=== PATIENT | female | born 1945 | race Caucasian/White ===

== ENCOUNTER 2019-12-25 15:04 | Outpatient (CLI) | payer MEDICARE, SELFPAY ==
--- NOTE | ~2019-12-25 | MR_ITS ---
EXAMINATION: MR lumbar spine wo con DATE: 12/25/2019 15:41 INDICATION: Low back pain. Right leg pain and numbness and weakness. Other symptoms and signs involvi ng the musculoskeletal system. TECHNIQUE: Magnetic resonance imaging (MRI) of the lumbar spine was performed without intravenous con trast. Sequences included sagittal T2-weighted FSE, sagittal STIR FSE, sagittal T1-weighted FSE, and axial T2-weighted FSE. COMPARISON: Lumbar spine MRI 09/20/2014, CT abdomen and pelvis 12/11/2014 FINDINGS: There is a transitional segment at the lumbosacral junction that is designated L5. There is 3 mm anterolisthesis of L3 on L4. There is 5 degrees dextrocurvature of lumbar spine. Vertebral body heights are normal. There is mildly decreased disc height at T12-L1, moderately decreased disc heigh t at L1-L2 and L2-L3, mildly decreased disc height at L3-L4, and severely decreased disc height at L4 -L5. The distal spinal cord signal intensity is normal. The conus medullaris is at L1. Partially visu alized is a chronic 6.0 cm mass in left adrenal gland that contained fat on the prior CT, consistent with a myelolipoma. The following disc levels are specifically discussed: L1-L2: The disc is bulging and has an annular fissure. There is mild bilateral facet joint osteoarthr itis. There is mild bilateral neural foraminal stenosis. There is mild central canal stenosis. L2-L3: The disc is bulging and has an annular fissure. There is moderate bilateral facet joint osteoa rthritis. There is mild bilateral neural foraminal stenosis. There is mild central canal stenosis. L3-L4: The disc is bulging. There is severe bilateral facet joint osteoarthritis. There is moderate r ight and mild left neural foraminal stenosis. There is mild central canal stenosis. L4-L5: The disc is bulging and has an annular fissure. There is mild bilateral facet joint osteoarthr itis. There is mild bilateral neural foraminal stenosis. There is mild central canal stenosis. L5-S1: The disc does not extend beyond the endplate margin. There is no facet joint osteoarthritis. T here is no neural foraminal stenosis. There is no central canal stenosis. IMPRESSION: 1. Severe lumbar spondylosis, slightly worsened from 09/20/2014. Reviewed, dictated and finalized at location E.
== END 2019-12-25 15:05 | disposition home or self-care (01) ==
LOC: ANHIMG 15:06
PROVIDERS: PCP Family Medicine; Visit Provider Family Medicine
DX: R29.898 Other symptoms and signs involving the musculoskeletal system (principal); M47.816 Spondylosis without myelopathy or radiculopathy, lumbar region
CPT/HCPCS: 72148

== ENCOUNTER 2020-01-25 09:37 | Inpatient (IN) | payer MEDICARE, SELFPAY ==
[2020-01-25] VITALS (33 sets, daily range): BP systolic 104–258; BP diastolic 34–93; PULSE 54–65; RESP 16–22; TEMP 36.3; O2SAT 64–100; BMI 27.7
--- NOTE | ~2020-01-25 | CT_ITS ---
EXAMINATION: CTA abdomen pelvis DATE: 01/27/2020 10:47 INDICATION: Hypertension. TECHNIQUE: Computed tomographic angiography (CTA) of the abdomen and pelvis was performed with 100 mL Omnipaque-350 intravenous contrast. Automated exposure control and iterative reconstruction techniqu e were employed. The dose-length product was 1057.24 mGy-cm. Maximum intensity projection 3D-reconstr uctions of the aorta and other arteries were constructed by the technologist on a separate workstatio n. COMPARISON: CT abdomen and pelvis 12/11/2014, 01/25/2020 FINDINGS: The visualized portions of the lung bases demonstrate small pleural effusions with mild ate lectasis. There is diffuse smooth septal thickening, consistent with mild pulmonary edema. There is m ild right hilar lymphadenopathy, likely reactive. There is left atrial enlargement of the heart. Ther e are coronary artery calcifications. No pericardial effusion. There is a small sliding hiatal hernia . Calcifications in the liver and spleen are consistent with old granulomatous disease. The gallbladd er is normal in size and contains gallstones. Gallbladder wall thickening is seen, likely interstitia l edema. The pancreas and right adrenal gland are normal. There is a 6.7 cm mass in left adrenal glan d containing fat and calcification, consistent with a myelolipoma. There is cortical thinning of the kidneys. There are cysts in the kidneys measuring up to 7 mm on the left. There are vascular calcific ations at the kourtney of the kidneys. There is calcified atherosclerosis of the aorta and many of the ot her arteries. There is a single right renal artery. There are 2 left renal arteries. There is less th an 50% stenosis of the renal arteries. There is moderate stenosis of celiac axis and mild stenosis of superior mesenteric artery. There is mild stenosis of the common iliac arteries and external iliac a rteries. The rectum is distended by stool. There is diverticulosis of the colon without evidence of d iverticulitis. The appendix is normal. There is mild periportal lymphadenopathy. There is a total lef t hip arthroplasty. IMPRESSION: 1. No significant renal artery stenosis. 2. Mild pulmonary edema and small pleural effusions. 3. Mild periportal and right hilar lymphadenopathy, likely reactive. Reviewed, dictated and finalized at location A.
--- NOTE | ~2020-01-25 | CT_ITS ---
EXAMINATION: CT abdomen pelvis wo con DATE: 01/25/2020 12:56 INDICATION: Left adrenal mass. TECHNIQUE: Computed tomography (CT) of the abdomen and pelvis was performed without intravenous contr ast. Automated exposure control and iterative reconstruction technique were employed. The dose-length product was 614.77 mGy-cm. COMPARISON: CT abdomen and pelvis 12/11/2014 FINDINGS: The visualized portions of the lung bases demonstrate mild atelectasis. No pleural effusion . The heart size is normal. There are coronary artery calcifications. No pericardial effusion. There is a small sliding hiatal hernia. Calcifications in the liver and spleen are consistent with old gran ulomatous disease. There are gallstones in the gallbladder, which is normal in size. There is chronic wall thickening of the gallbladder fundus, consistent with adenomyomatosis. The pancreas and right a drenal gland are normal. There is a 6.9 x 5.3 cm mass in left adrenal gland containing fat and calcif ication, consistent with a myelolipoma. The mass measured 6.4 x 4.6 cm on the prior CT. There are vas cular calcifications at the kourtney of the kidneys. There are two 2 mm stones in right kidney. There is a 1.3 cm cyst in left kidney. There is diverticulosis of the colon without evidence of diverticulitis . The appendix is normal. There are no dilated loops of bowel. There are no pathologically enlarged l ymph nodes. There is no free intraperitoneal fluid. There is a left hip arthroplasty. There is severe lumbar spondylosis. IMPRESSION: 1. 6.9 cm myelolipoma in left adrenal gland. Reviewed, dictated and finalized at location A.
--- NOTE | ~2020-01-25 | XR_ITS ---
EXAMINATION: XR chest 1V portable DATE: 01/27/2020 08:34 INDICATION: Hypertension. Elevated troponin. TECHNIQUE: A single frontal view of the chest was obtained. COMPARISON: CT abdomen and pelvis 01/25/2020 FINDINGS: The patient is rotated to her right. There is mild atelectasis in right middle lower lung z ones. No pleural effusion or pneumothorax. The heart size is normal. IMPRESSION: 1. Mild atelectasis in right middle lobe lung zones. Reviewed, dictated and finalized at location A.
--- NOTE | ~2020-01-25 | MR_ITS ---
EXAMINATION: MR brain/brain stem wo/w con DATE: 01/28/2020 07:51 INDICATION: Right hemiparesis. TECHNIQUE: Magnetic resonance imaging (MRI) of the brain and brainstem was performed without with 15 mL MultiHance intravenous contrast. Sequences included sagittal and axial T1-weighted FSE, axial diff usion-weighted FS EPI, axial T2*-weighted GRE, axial T2-weighted FLAIR Propeller, and axial T2-weight ed Propeller. Postcontrast sequences included axial and coronal T1-weighted FSE. Apparent diffusion c oefficient (ADC) maps were created. COMPARISON: None. FINDINGS: There are scattered areas of nonspecific increased T2-weighted signal intensity in the cere bral white matter. There is no intracranial hemorrhage, acute infarction, or abnormal intracranial ma ss lesion. The ventricles are normal in size. There is mild mucosal thickening in the paranasal sinus es. The orbits are normal. The mastoid air cells are normal. IMPRESSION: 1. Mild nonspecific cerebral white matter disease, which likely represents chronic small vessel ische richard disease. Reviewed, dictated and finalized at location A. IMPRESSION: 1. Mild nonspecific cerebral white matter disease, which likely represents search engineer jennifer small vessel ischemic disease.
--- NOTE | ~2020-01-25 | XR_ITS ---
XR knee RT 3V 01/25/2020 19:42 Indication: Right knee pain and numbness Procedure: 3 views right knee Comparison: No prior studies for comparison. Findings: Mild-moderate osteoarthritis of the right knee. There are vascular calcifications. No signi ficant joint effusion. No fracture or traumatic malalignment. Impression: 1: Mild-moderate osteoarthritis of the right knee. Reviewed, dictated and finalized at location A. Impression: 1: Mild-moderate osteoarthritis of the right knee.
--- NOTE | 2020-01-25 09:48 | ED.GENADULT ---
HPI - General Adult General Chief complaint: Recheck/Abnormal Lab/Rx Stated complaint: HIGH BP Time Seen by Provider: 01/25/20 09:47 Source: patient Mode of arrival: ambulatory Limitations: no limitations History of Present Illness HPI narrative: Patient is a 74-year-old female with a history of hypertension on multiple medications who presents for evaluation of high blood pressure. Patient reportedly was having a home health screen for physical therapy, her blood pressure was taken and was over 250 systolic. Patient was otherwise asymptomatic, and has been compliant with her medications. She denies any headache, vision changes, nausea, vomiting, chest pain or shortness of breath. She follows a Dr. Edmonds. She states she was sent here due to elevated blood pressure readings. Related Data Home Medications Medication Instructions Recorded Confirmed aliskiren 300 mg tablet 300 mg PO DAILY 12/14/19 12/18/19 aspirin 81 mg tablet,delayed 81 mg PO DAILY 12/14/19 12/18/19 release atenolol 100 mg tablet 100 mg PO DAILY 12/14/19 12/18/19 atorvastatin 80 mg tablet 80 mg PO DAILY 12/14/19 12/18/19 clopidogrel 75 mg tablet 75 mg PO DAILY 12/14/19 12/18/19 ezetimibe 10 mg tablet 10 mg PO QPM tablet 12/14/19 12/18/19 hydralazine 25 mg tablet 25 mg PO BID tablet 12/14/19 12/18/19 lisinopril 40 mg tablet 40 mg PO DAILY 12/14/19 12/18/19 melatonin 10 mg tablet 20 mg PO .QHS tablet 12/14/19 12/18/19 naproxen sodium 220 mg tablet 220 mg PO BID PRN 12/14/19 12/18/19 verapamil 240 mg 24 hr 240 mg PO DAILY 12/14/19 12/18/19 capsule,extended release hydrochlorothiazide 12.5 mg tablet 12.5 mg PO DAILY 12/18/19 12/18/19 Allergies Allergy/AdvReac Type Severity Reaction Status Date / Time No Known Allergies Verified 01/25/20 09:41 Review of Systems Review of Systems: Narrative: CONSTITUTIONAL: Denies fever CARDIOVASCULAR: Denies chest pain RESPIRATORY: Denies cough or dyspnea. GASTROINTESTINAL: Denies abdominal pain SKIN: Denies rash MUSCULOSKELETAL: Denies back pain NEUROLOGIC: Denies headache [facility] Past Medical History Medical History Anxiety CAD (coronary artery disease) Dyslipidemia Essential (primary) hypertension Osteoarthritis Surgical History Surgical History History of coronary artery stent placement 11/2014 History of left hip replacement around 2016 Social History Social History Smoking status: Never smoker Second hand tobacco smoke exposure: No Alcohol intake: never Substance use: never Substance use type: does not use Gender identity (if verbalized by the patient): Female Exam Narrative: Exam Narrative: GENERAL: Awake, alert, conversant HEAD: Normocephalic, atraumatic. EYES: PERRLA and EOMI. ENT: Nares clear, no rhinorrhea or epistaxis. Mucous membranes moist. NECK: Supple. CHEST: No respiratory distress, breathing even and non labored HEART: Regular rate, sinus rhythm ABDOMEN:Non distended, non tender EXTREMITIES: Normal range of motion. No edema. SKIN: Warm, dry, no rash. NEURO:No focal deficits. Alert and oriented x3 Course Vital Signs Vital signs: Vital Signs Temperature 36.3 C L 01/25/20 09:39 Pulse Rate 56 L 01/25/20 09:39 Respiratory Rate 19 01/25/20 09:39 Blood Pressure 236/93 H 01/25/20 09:39 Pulse Oximetry 100 01/25/20 09:39 Temperature 36.3 C L 01/25/20 09:39 Pulse Rate 56 L 01/25/20 11:45 Respiratory Rate 20 01/25/20 11:45 Blood Pressure 159/41 H 01/25/20 11:45 Pulse Oximetry 98 01/25/20 11:45 Medical Decision Making MDM Narrative Medical decision making narrative: Patient presented for evaluation of elevated blood pressure despite being compliant with her many antihypertensives. At the time of initial assessment, patient is asymptomatic otherwise, but blood pressures
[2020-01-25 10:10] LABS: Basophils Absolute Auto 0.1 K/mm3 (0.0-0.1); Basophils Percent Auto 0.6 % (0.2-1.2); Eosinophils Absolute Auto 0.2 K/mm3 (0-0.3); Eosinophils Percent Auto 1.9 % (0-4.4); Hematocrit 42.7 % (37.0-47.0); Hemoglobin 14.2 g/dL (12.0-15.0); Immature Granulocyte Absolute 0.04 K/mm3 (0.00-0.031); Immature Granulocyte Percent A 0.5 % (0-0.5); Lymphocytes Absolute Auto 1.09 K/mm3 (0.9-3.2); Lymphocytes Percent Auto 13.9 % (18.3-44.2); Mean Corpuscular HGB Conc 33.3 g/dl (32-36); Mean Corpuscular Hemoglobin 30.1 pg (26-34); Mean Corpuscular Volume 90.5 fl (80-100); Mean Platelet Volume 10.8 fl (7.4-10.4); Monocytes Absolute Auto 0.6 K/mm3 (0.1-0.6); Monocytes Percent Auto 7.9 % (2.6-8.5); Neutrophils Absolute Auto 5.9 K/mm3 (1.3-6.7); Neutrophils Percent Auto 75.2 % (45.5-73.1); Platelet Count Result 238 k/mm3 (150-375); Red Blood Count 4.72 M/mm3 (4.2-5.4); Red Cell Distribution Width 13.3 % (11.5-14.5); White Blood Count 7.8 K/mm3 (4.5-10.0)
[2020-01-25 10:20] LABS: INR 1.1; Partial Thromboplastin Time 24.7 SECONDS (22.3-36.8); Prothrombin Time 13.9 Seconds (11.1-14.7)
[2020-01-25 10:21] LABS: Blood Urea Nitrogen 19 mg/dL (7-17); Calcium 8.8 mg/dL (8.4-10.2); Carbon Dioxide 29 mmol/L (22-30); Chloride 98 mmol/L (98-107); Estimated CRCL calculation 42 ml/min; Estimated Glomerular Filt Rate 54; Glucose 180 mg/dL (65-105); Potassium 3.7 mmol/L (3.4-5.0); Sodium 135 mmol/L (137-145)
[2020-01-25 10:35] LABS: Troponin I 0.036 ng/mL (0.000-0.034)
--- NOTE | 2020-01-25 10:36 | ECG_ITS ---
Measurements Intervals [place] Rate: 51 P: -52 DC: 152 QRS: 190 QRSD: 153 T: 3 QT: 503 QTc: 467 Interpretive Statements SINUS OR ECTOPIC ATRIAL BRADYCARDIA RIGHT AXIS DEVIATION RIGHT BUNDLE BRANCH BLOCK HIGH LATERAL INFARCT, AGE INDETERMINATE ABNORMAL ECG Electronically Signed On 01-25-2020 11:16:48 CDT by Aryan Gunn D.O.
[2020-01-25] MEDS: hydrALAZINE HCL 20 MG/ML VIAL IV PUSH ×3 (11:10→14:45)
--- NOTE | 2020-01-25 11:55 | PC.NURSE ---
nicardipine drip to be held per dr garcia order at this time.
[2020-01-25 12:47] LABS: Add Urine Microscopic? YES; Appearance Urine Clear (Clear); Bilirubin Urine Negative (Negative); Blood Urine Negative (Negative); Color Urine Yellow (Yellow); Glucose Urine UA Negative (Negative); Ketones Urine Negative (Negative); Leukocyte Esterase Ur Negative LEU/UL (Negative); Nitrate Urine Negative (Negative); Protein Urine 2+ mg/dL (Negative); RBC Urine 0-2 /hpf (0-2); Specific Grav Ur 1.014 (1.001-1.035); Squamous Epithelial Cell Urine Rare /hpf (Few); Urobilinogen Urine Negative mg/dL (<2.0); WBC Urine 0-3 /hpf
--- NOTE | 2020-01-25 13:10 | PM.IMHP ---
H&P: HPI History of Present Illness Chief complaint: Elevated blood pressure. <Oly Dozier PA-C - Last Filed: 01/25/20 19:29> Narrative: Terese Bentley is a 74-year-old female with history of difficult to control hypertension, dyslipidemia, coronary artery disease, anxiety, and left adrenal mass who presented to the emergency department earlier this morning via private vehicle from home for evaluation of an elevated blood pressure. A little over a month ago her right knee gave out and she has become progressively more debilitated since that time. She has gone from ambulating unassisted to using a cane to a wheelchair. Work-up per her primary care provider included lumbar MRI (severe lumbar spine spondylosis with slight interval worsening when compared to imaging in 2015), Neurology referral, and PT referral. She was seen by neurology and was prescribed gabapentin which offered her no help, and more recently she was given carbamazepine which has also provided her with no relief. CT of the cervical and thoracic spine were also performed, with some degenerative changes noted and moderate stenosis in addition to a 6 cm complex mass of the left suprarenal region, noted to be a 6.9 cm myelolipoma on abdominal CT today. This adrenal mass was seen on imaging in 2015 and a workup for pheochromocytoma was reprotedly negative. A home health nurse came to see her today to initiate paperwork for physical therapy, and at that time the patient was noted to have a blood pressure reading of 270/100 for which she was directed to the emergency department. She received a total of 40 mg of hydralazine in the emergency department with improvement in her blood pressures, now in the 170s over 90s at the time of my evaluation. It is also noted that her blood pressure was high when she saw Dr. Rosas a couple of weeks ago, and she was instructed to keep a blood pressure log. Her pressures at home have ranged in the 120s to 130 systolic over the 60s to 70s. Previously she reports accelerated hypertension with stressful situations, and she reports being quite stressed recently due to pain in her right knee with the inability to ambulate. The pain is described as sharp, shooting, and aching in nature, worse with movement. She is also frustrated that she has yet to start physical therapy. With further questioning, it sounds as though she has been experiencing weakness and paresthesias in the right leg, mainly in the right thigh, for the last month or more since her knee gave out. Additionally, she has intermittent paresthesias of the fingers in the right hand, and this also occurred within the past 4 to 6 weeks. She has had no symptoms regarding her high blood pressure and she specifically denies headache, dizziness/vertigo, visual changes, chest pain, and shortness of breath. She also denies weakness in any other extremity except for the right leg. She has no history of stroke or atrial fibrillation. <Oly Dozier PA-C - Last Filed: 01/25/20 19:29> Review of Systems Review of Systems: Narrative: 12 systems were reviewed with pertinent positives and negatives as per HPI. No fever, chills, or sweats. No recent cold or flulike symptoms. She denies chest pain and shortness of breath. No nausea or vomiting. She has had problems with constipation since she was a young woman. She suffers from longstanding anxiety and this is unchanged. She denies sweats, tremors, headache, and shortness of breath. Except as documented, all other systems were reviewed and are negative. <Oly Dozier PA-C - Last Filed: 01/25/20 19:29> [facility] Past Medical History Medical History: Medical History Anxiety Coronary artery disease Abnormal MPI in 11/2014.Subsequent cardiac catheterization showed high-grade mid LAD stenosis in which a bare-metal stent was placed per Dr. Perez. She is followed in the clinic by Dr. Antonella Edmonds. Tito
--- NOTE | 2020-01-25 13:40 | PC.NURSE ---
nicardipine drip still on hold at this time per dr garcia request
--- NOTE | 2020-01-25 13:48 | PC.NURSE ---
SBAR and report received from MEGHAN Britton in ED.
--- NOTE | 2020-01-25 14:17 | PC.NURSE ---
This patient, Terese Bentley, was admitted to Intensive Care Unit-6. Patient/family oriented to hospital policies and general routines including ID bracelet, bed and alarms, visiting hours, pain management, procedures, bathroom and other care routines, personal items, smoking policy, room service/diet, and visiting hours. Valuables list has been completed. Information on how to activate the Rapid Response Team has been discussed. Patient/Family are encouraged to report perceived risks to care and to ask questions if they do not understand what they are told or what they should do.
[2020-01-25] MEDS: niCARdipine 20 MG/200 ML 20 MG/200 ML BAG 50 MG IV CONT (14:45)
--- NOTE | 2020-01-25 14:57 | WPDCNINT ---
Assessment and Plan Assessment and plan (1) Hypertensive crisis: Code(s): I16.9 - Hypertensive crisis, unspecified Status: Acute Assessment and Plan: Hypertensive crisis, patient was found to have a blood pressure of 270/100 for which she was sent to the ER. Systolic blood pressures in the ER was in the 250s, received hydralazine. Upon arrival to the ICU blood pressures in the 220s -nicardipine infusion is being started -Cardiology to evaluate the patient -patient has a 6.9 cm myelolipoma in the left adrenal gland. Questionable pheochromocytoma, will obtain 24 hour metanephrines and catecholamines -nephrology has been consulted (2) Weakness of right lower extremity: Code(s): R29.898 - Other symptoms and signs involving the musculoskeletal system Status: Acute Assessment and Plan: Patient follows with Dr. Bradford, will have him follow-up with the patient (3) Anxiety: Code(s): F41.9 - Anxiety disorder, unspecified Status: Acute Assessment and Plan: Patient has a history of anxiety will restart her home dose lorazepam (4) CAD (coronary artery disease): Qualifiers: Coronary Disease-Associated Artery/Lesion type: [place] artery [place] vs. transplanted heart: [place] heart Associated angina: without angina Qualified Code(s): I25.10 - Atherosclerotic heart disease of [place] coronary artery without angina pectoris Code(s): I25.10 - Atherosclerotic heart disease of [place] coronary artery without angina pectoris Status: Acute Assessment and Plan: Coronary artery disease, continue, atenolol, AMY-inhibitor -Dr. Edmonds has been consulted, will wait for Cardiology to evaluate (5) Essential (primary) hypertension: Code(s): I10 - Essential (primary) hypertension Status: Acute Assessment and Plan: Patient with history of essential hypertension, restarted home atenolol, hydralazine, hydrochlorothiazide, lisinopril, verapamil, Aliskiren (6) Dyslipidemia: Code(s): E78.5 - Hyperlipidemia, unspecified Status: Acute Assessment and Plan: Continue home ezetimibe and atorvastatin Additional Plan Discussed with patient and her at bedside and updated them with patient's condition and plan of care. I answered all questions Code status: Full code Critical care time spent: 43 minutes Due to a high probability of clinically significant, life threatening deterioration, the patient required my highest level of preparedness to intervene emergently and I personally spent this critical care time directly and personally managing the patient. This critical care time included obtaining a history; examining the patient; pulse oximetry; ordering and review of studies; arranging urgent treatment with development of a management plan; evaluation of patient's response to treatment; frequent reassessment; and discussions with other providers. It was exclusive of separately billable procedures and treating other patients and teaching time. Please see Assessment and Plan section and the rest of the note for further information on patient assessment and treatment [employer] Consult Note Consult date: 01/25/20 Time Seen: 14:15 Reason for consult: Hypertensive urgency HPI: Terese Bentley is a 74 year old female with past medical history of coronary artery disease, essential hypertension, dyslipidemia, anxiety and osteoarthritis, known left adrenal mass presented to the ED from home for evaluation of elevated blood pressures. Patient has been having weakness and right lower extremity for which she saw a neurologist, a lumbar spine MRI done on 12/25/2019 showed via lumbar spondylosis, CT scan of the cervical and thoracic spine was also performed at the same time with some degenerative changes noted and moderate stenosis in addition 6 cm complex mass on the left suprarenal region. Noted to be a 6.[address] scan done on admission today, 01/24
--- NOTE | 2020-01-25 15:29 | PM.CNCAR ---
Assessment and Plan Assessment and plan (1) Hypertensive crisis: Code(s): I16.9 - Hypertensive crisis, unspecified Status: Acute Assessment and Plan: BP much better controlled on nicardipine drip. Keep systolic blood pressure around 150 mm Hg overnight, avoid aggressive lowering/hypotension particularly within the 1st 24 hours. Monitor renal function. Agree with workup for pheochromocytoma given adrenal mass and while blood pressure swelling. 24 hour urine collection orders noted. 2D echocardiogram. Trend troponin. It is not surprising she has mild troponin elevation in setting of hypertensive crisis. She has no anginal symptoms. Resume home antihypertensive regimen. Monitor electrolytes and renal function closely. Further recommendations follow based on patient's response to therapy. (2) Elevated troponin: Code(s): R79.89 - Other specified abnormal findings of blood chemistry Status: Acute Assessment and Plan: Most likely type 2 infarct/non [place] troponin elevation not acute coronary syndrome. Trend troponin. No anginal symptoms. Continue medical therapy for CAD. (3) Adrenal mass, left: Code(s): E27.8 - Other specified disorders of adrenal gland Status: Acute Assessment and Plan: Agree with workup underway. CT results noted. Nephrology consulted. (4) CAD (coronary artery disease): Qualifiers: Coronary Disease-Associated Artery/Lesion type: [place] artery [place] vs. transplanted heart: [place] heart Associated angina: without angina Qualified Code(s): I25.10 - Atherosclerotic heart disease of [place] coronary artery without angina pectoris Code(s): I25.10 - Atherosclerotic heart disease of [place] coronary artery without angina pectoris Status: Acute Assessment and Plan: As above. Continue aspirin, statin, clopidogrel. (5) Dyslipidemia: Code(s): E78.5 - Hyperlipidemia, unspecified Status: Acute Assessment and Plan: Atorvastatin 80 mg at bedtime. Check lipid panel. (6) Tobacco abuse: Code(s): Z72.0 - Tobacco use Status: Acute Assessment and Plan: Smoking cessation counseling. History of Present Illness History of Present Illness Consult date/time: Date of service: 01/25/20 15:29 This is a cardiology consultation at the request of Oly STACK of the [facility] service for our opinion regarding hypertensive crisis. Requesting physician: Oly Dozier PA-C Consult reason: hypertension (Hypertensive crisis) Reason For Visit: Elevated blood pressure. Narrative: Patient is a 74-year-old female with past medical history significant for CAD status post bare metal stent mid LAD 11/2014, labile and resistant hypertension on multiple drugs, dyslipidemia, anxiety, osteoarthritis and known left adrenal mass who presents to the emergency department as instructed for markedly elevated blood pressures. She was evaluated by home health nurse earlier today where upon was discovered her blood pressure was 270/100 mm Hg and as such directed to the emergency department. Upon arrival she received intravenous hydralazine with some improved blood pressures but then rebound back about 200 mm Hg admitted to the ICU and started on a nicardipine drip. She denies chest pain, shortness of breath, abdominal pain, nausea, vomiting, diarrhea, headache or visual changes. No near-syncope or syncope or palpitations. She did complain of right lower extremity weakness and paresthesias. Was not in acute renal failure presentation at 1.0, electrolytes were unremarkable initial troponin 0.036. CT of the abdomen pelvis in the emergency department real 6.9 cm mild lipoma in the left adrenal gland slightly enlarged compared to prior CT 2014. Twelve EKG reveals sinus bradycardia with right bundle-branch block. Patient has been seen by Dr. Edmonds in the past. The patient reports compliance with her medications. She sta
[2020-01-25] MEDS: niCARdipine 20 MG/200 ML 20 MG/200 ML BAG 100 MG IV CONT ×2 (16:53→18:45)
[2020-01-25 17:08] LABS: Troponin I 0.044 ng/mL (0.000-0.034)
[2020-01-25] MEDS: hydrALAZINE HCL 25 MG TABLET PO (22:00)
[2020-01-25] MEDS: EZETIMIBE 10 MG TABLET PO (22:00)
[2020-01-26] VITALS (29 sets, daily range): BP systolic 132–194; BP diastolic 30–88; PULSE 47–61; RESP 12–22; TEMP 36.4–37.2; O2SAT 89–97; BMI 27.7
[2020-01-26 04:42] LABS: Basophils Percent Auto 0.5 % (0.2-1.2); Eosinophils Absolute Auto 0.1 K/mm3 (0-0.3); Eosinophils Percent Auto 1.3 % (0-4.4); Hematocrit 39.1 % (37.0-47.0); Hemoglobin 13.3 g/dL (12.0-15.0); Immature Granulocyte Absolute 0.03 K/mm3 (0.00-0.031); Immature Granulocyte Percent A 0.4 % (0-0.5); Lymphocytes Absolute Auto 1.16 K/mm3 (0.9-3.2); Lymphocytes Percent Auto 14.2 % (18.3-44.2); Mean Corpuscular Hemoglobin 29.8 pg (26-34); Mean Corpuscular Volume 87.7 fl (80-100); Mean Platelet Volume 10.7 fl (7.4-10.4); Monocytes Absolute Auto 0.7 K/mm3 (0.1-0.6); Monocytes Percent Auto 8.4 % (2.6-8.5); Neutrophils Absolute Auto 6.1 K/mm3 (1.3-6.7); Neutrophils Percent Auto 75.2 % (45.5-73.1); Platelet Count Result 220 k/mm3 (150-375); Red Blood Count 4.46 M/mm3 (4.2-5.4); Red Cell Distribution Width 13.2 % (11.5-14.5); White Blood Count 8.2 K/mm3 (4.5-10.0)
[2020-01-26 04:51] LABS: Hemoglobin A1C 8.3 % (<5.7)
[2020-01-26 04:56] LABS: Alanine Aminotransferase 29 U/L (4-35); Albumin Level 3.3 g/dL (3.5-5.1); Alkaline Phosphatase 85 U/L (38-126); Aspartate Amino Transferase 37 U/L (14-36); Bilirubin,Total 0.6 mg/dL (0.2-1.3); Blood Urea Nitrogen 17 mg/dL (7-17); Calcium 8.5 mg/dL (8.4-10.2); Carbon Dioxide 24 mmol/L (22-30); Chloride 96 mmol/L (98-107); Estimated CRCL calculation 65 ml/min; Estimated Glomerular Filt Rate > 60; Glucose 139 mg/dL (65-105); Magnesium 1.5 mg/dL (1.6-2.3); Phosphorus 3.5 mg/dL (2.5-4.5); Potassium 3.5 mmol/L (3.4-5.0); Sodium 127 mmol/L (137-145); Uric Acid 5.5 mg/dL (2.5-7.5)
[2020-01-26] MEDS: niCARdipine 20 MG/200 ML 20 MG/200 ML BAG 80 MG IV CONT (07:46)
[2020-01-26] MEDS: atenoloL 50 MG TABLET 100 MG PO (08:03)
[2020-01-26] MEDS: ASPIRIN 81 MG ENTERIC TABLET PO (08:04)
[2020-01-26] MEDS: CLOPIDOGREL BISULFATE 75 MG TABLET PO (08:04)
[2020-01-26] MEDS: hydroCHLOROthiazide 12.5 MG CAPSULE PO ×2 (08:04→18:20)
[2020-01-26] MEDS: VERAPAMIL HCL ER 240 MG TABLET.ER PO (08:04)
[2020-01-26] MEDS: ALISKIREN 150 MG TABLET 300 MG PO (08:04)
[2020-01-26] MEDS: MAGNESIUM SULF 2 GM/WATER 50ML 2 GM/50 ML BAG IVPB (08:23)
[2020-01-26] MEDS: hydrALAZINE HCL 25 MG TABLET PO ×2 (08:24→17:06)
[2020-01-26] MEDS: lisinopriL 20 MG TABLET 40 MG PO (08:24)
--- NOTE | 2020-01-26 08:30 | PM.IMPN ---
Progress Note: A&P Assessment and Plan (1) Hypertensive crisis: Code(s): I16.9 - Hypertensive crisis, unspecified Status: Acute Assessment and Plan: Blood pressures 236/93 on admission. Blood pressure initially improved with hydralazine but then rebounded requiring a nicardipine drip. Able to wean nicardipine off but subsequently needed to be resumed this morning. Home medications have been resumed. Appreciate payroll administrative assistant and Cardiology input. Continue to wean nicardipine as blood pressure allows. (2) Weakness of right lower extremity: Code(s): R29.898 - Other symptoms and signs involving the musculoskeletal system Status: Acute Assessment and Plan: Patient has right leg weakness with previous evaluation as outpatient concerning for lumbar spinal disease. Lumbar spine MRI December 24 showing severe lumbar spondylosis, mild central canal stenosis at various sites and moderate right neural foraminal stenosis at L3-4. This appears only mildly worse from 2014. Agree with MRI of the brain to exclude CVA. Right knee x-ray does show osteoarthritis as well which could be contributing to her weakness. PT/OT consulted. (3) Elevated troponin: Code(s): R79.89 - Other specified abnormal findings of blood chemistry Status: Acute Assessment and Plan: Troponin only mildly elevated. Most likely related the severe hypertension. No symptoms of cardiac ischemia. 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 This has been known to the patient since 2014, with previous workup negative for pheochromocytoma. Doubtful this is playing a part in her current medical condition. (5) Hyperglycemia: Code(s): R73.9 - Hyperglycemia, unspecified Status: Acute Assessment and Plan: Patient noted to be hyperglycemic on admission. A1c 8.3. Dietitian consult. Place on sliding scale protocol. Plan for metformin at discharge. (6) Dyslipidemia: Code(s): E78.5 - Hyperlipidemia, unspecified Status: Acute Assessment and Plan: LFTs within normal limits. Continue atorvastatin and ezetimibe. (7) Coronary artery disease: Code(s): I25.10 - Atherosclerotic heart disease of [place] coronary artery without angina pectoris Status: Acute Assessment and Plan: Patient with history of CAD status post bare metal stent to the mid LAD in 2014. Continue aspirin, clopidogrel, beta-kayode, and statin. Subjective Date/time seen: 01/26/20 08:30 Interval history: 74yo female with hx of HTN who was sent to the emergency room because elevated blood pressure. She denies any other symptoms such as chest pain, shortness of breath, nausea, vomiting, headache, visual changes. She has been compliant with her medications. She denies any dietary indiscretion. She was started on nicardipine drip which was able to be stopped overnight. Unfortunately however, patient's blood pressure climbed and nicardipine drip was resumed around 0430 this morning. Patient feels well today without complaints. Eating normally. Slept poorly because of the SCDs. She has chronic right leg weakness with hip flexor. This is been going on for few weeks. She has seen her primary care doctor and Neurology for this and MRI was performed of the lumbar spine. It was felt her right leg weakness was related to lumbar spine arthritis. Exam Narrative: Exam Narrative: Afebrile 162/36 57 93% ra Gen: N
--- NOTE | 2020-01-26 09:01 | ECHO_ITS ---
Patient Info Name: Terese Bentley Age: 74 years : 1945 Gender: Female Ht: 67 in Wt: 177 lbs BSA: 1.97 m2 HR: 55 bpm BP: 133 / 45 mmHg Heart Rhythm: Bradycardia Technical Quality: Good Exam Date: 01/26/2020 9:54 AM Exam Location: [facility] Pulmonary Patient Status: Inpatient Admit Date: 01/25/2020 Staff Ordering Physician: Lelia Kirkland APRN [place] Department Worker: Haroon Nugent RDCS Attending Provider: Tian Holland MD Referring Physician: Isael CAR; Exam Type: CA echo doppler color flow Study Info Indications I10 - Essential (primary) hypertension Complete two-dimensional, color flow and Doppler transthoracic echocardiogram is performed. Strain analysis performed. History/Risk Factors Hypertensive urgency; CAD, NSTEMI. Summary 1. There is moderate concentric increased left ventricular wall thickness. 2. Left ventricular systolic function is normal, estimated at 65-70%. 3. Left atrial chamber dimension is severely enlarged. 4. The mitral valve annulus is severely calcified. 5. There is mild aortic valve sclerosis. Left Ventricle Left ventricular chamber dimension is normal. Left ventricular systolic function is normal, estimated at 65-70%. There is moderate concentric increased left ventricular wall thickness. The left ventricular diastolic function is grade I diastolic dysfunction. Right Ventricle Right ventricular chamber dimension is normal. Left Atria Left atrial chamber dimension is severely enlarged. Right Atria Right atrial chamber dimension is normal. Aortic Valve The aortic valve is trileaflet. There is mild aortic valve sclerosis. Pulmonic Valve The pulmonic valve is not well visualized. Mitral Valve The mitral valve has normal leaflets. There is trace mitral valve regurgitation. The mitral valve annulus is severely calcified. Tricuspid Valve The tricuspid valve leaflets are normal. Pericardium/Pleural The pericardium appears normal. Inferior Vena Cava Normal inferior vena cava with >50% collapse upon inspiration consistent with Empty right atrial pressure, 5 mmHg. Aorta The aortic root size at the sinus of Valsalva is normal. Left Ventricular Outflow Tract Name Value Normal LVOT 2D LVOT Diameter 1.7 cm LVOT Doppler LVOT Peak Gradient 11 mmHg LVOT Mean Gradient 6 mmHg LVOT VTI 38 cm LVOT VTI/AV VTI Ratio 0.8 LVOT Stroke Volume 90 ml LVOT CO 4.9 l/min LVOT CI 2.5 l/min/m2 Mitral Valve Name Value Normal MV Doppler MV Peak Gradient 14 mmHg MV Mean Gradient 5 mmHg MV Decel [place] 265 cm/s2
[2020-01-26] MEDS: niCARdipine 20 MG/200 ML 20 MG/200 ML BAG 60 MG IV CONT ×2 (11:02→14:18)
[2020-01-26] MEDS: LORazepam 0.5 MG TABLET PO (11:03)
--- NOTE | 2020-01-26 11:22 | WPDINTPN ---
Progress Note: A&P Assessment and Plan (1) Hypertensive crisis: Code(s): I16.9 - Hypertensive crisis, unspecified Status: Acute Assessment and Plan: Hypertensive crisis, patient was found to have a blood pressure of 270/100 for which she was sent to the ER. Systolic blood pressures in the ER was in the 250s, received hydralazine. Upon arrival to the ICU blood pressures in the 220s -nicardipine infusion is being started -Cardiology to evaluate the patient -patient has a 6.9 cm myelolipoma in the left adrenal gland. Questionable pheochromocytoma, will obtain 24 hour metanephrines and catecholamines -nephrology has been consulted (2) Weakness of right lower extremity: Code(s): R29.898 - Other symptoms and signs involving the musculoskeletal system Status: Acute Assessment and Plan: Patient follows with Dr. Bradford, will have him follow-up with the patient -lumbar spine MRI on 12/25/2019 showed severe lumbar spondylosis, mild central canal stenosis at various sites and moderate right neural foraminal stenosis at L3 and L4. -patient to an MRI of the brain to exclude CVA -right knee x-ray shows osteoarthritis -PT/OT following the patient (3) Anxiety: Code(s): F41.9 - Anxiety disorder, unspecified Status: Acute Assessment and Plan: Patient has a history of anxiety will restart her home dose lorazepam (4) CAD (coronary artery disease): Qualifiers: Coronary Disease-Associated Artery/Lesion type: [place] artery [place] vs. transplanted heart: [place] heart Associated angina: without angina Qualified Code(s): I25.10 - Atherosclerotic heart disease of [place] coronary artery without angina pectoris Code(s): I25.10 - Atherosclerotic heart disease of [place] coronary artery without angina pectoris Status: Acute Assessment and Plan: Coronary artery disease, continue, atenolol, AMY-inhibitor -Dr. Edmonds has been consulted, will wait for Cardiology to evaluate (5) Essential (primary) hypertension: Code(s): I10 - Essential (primary) hypertension Status: Acute Assessment and Plan: Patient with history of essential hypertension, restarted home atenolol, hydralazine, hydrochlorothiazide, lisinopril, verapamil, Alisk[place] (6) Dyslipidemia: Code(s): E78.5 - Hyperlipidemia, unspecified Status: Acute Assessment and Plan: Continue home ezetimibe and atorvastatin Additional Plan Discussed with patient and her at bedside and updated them with patient's condition and plan of care. I answered all questions Code status: Full code Critical care time spent: 43 minutes Due to a high probability of clinically significant, life threatening deterioration, the patient required my highest level of preparedness to intervene emergently and I personally spent this critical care time directly and personally managing the patient. This critical care time included obtaining a history; examining the patient; pulse oximetry; ordering and review of studies; arranging urgent treatment with development of a management plan; evaluation of patient's response to treatment; frequent reassessment; and discussions with other providers. It was exclusive of separately billable procedures and treating other patients and teaching time. Please see Assessment and Plan section and the rest of the note for further information on patient assessment and treatment Subjective Date/time seen: 01/26/20 11:22 Interval history: Reason for consult: 01/26/2020: Patient seen and examined this morning. Sitting up in chair, denies any shortness of breath, chest pain, abdominal pain, nausea, vomiting, diarrhea. Denies any headaches, visual changes. Continues to complain of weakness in the right lower extremity with numbness. Patient was off nicardipine infusion last night and had to be restarted early this morning. Patient did not sleep well because of her SCDs. [place]
[2020-01-26 12:04] LABS: Glucose Point of Care 210 (65-105)
[2020-01-26] MEDS: INSULIN ASPART (*BKC) 100 UNITS/ML SUB-Q (12:19)
--- NOTE | 2020-01-26 13:48 | PCDIET ---
Dietitian consult for new diagnoses of diabetes. See nutritional teaching intervention.Thank you for the consult.
--- NOTE | 2020-01-26 14:12 | PCNSR ---
On 01/26/20, the student, Sherif Luevano, provided care and completed [facility] documentation on this patient. I have reviewed the student's documentation and agree with the findings.
--- NOTE | 2020-01-26 15:31 | PM.PNCARD ---
Progress Note: A&P Assessment and Plan (1) Hypertensive crisis: Code(s): I16.9 - Hypertensive crisis, unspecified Status: Acute Assessment and Plan: BP much better controlled on nicardipine drip. Was weaned till most off overnight but blood pressure crept up again. Goal for systolic blood pressure around 150 mm Hg overnight, avoid aggressive lowering/hypotension particularly within the first 24 hours. Monitor renal function. Continue workup for pheochromocytoma given adrenal mass and while blood pressure swelling. 24 hour urine collection orders noted. 2D echo 01/26/2020: Moderate concentric increased left ventricular wall thickness. Left ventricular systolic function is normal, estimated at 65-70%. Left atrial chamber dimension is severely enlarged. The mitral valve annulus is severely calcified. There is mild aortic valve sclerosis. Continue home antihypertensive regimen. Monitor electrolytes and renal function closely. She states she has never been evaluated for sleep apnea. Will do apnea link tonight. May have SCDs offer the night so that she can sleep. Needs to be off the nicardipine drip in order to have her MRI. Increase hydralazine to 25 mg q.8 hours. First dose now. (2) Elevated troponin: Code(s): R79.89 - Other specified abnormal findings of blood chemistry Status: Acute Assessment and Plan: It is not surprising she has mild troponin elevation in setting of hypertensive crisis. No anginal symptoms. Most likely type 2 infarct/non NH troponin elevation not acute coronary syndrome. Continue medical therapy for CAD. (3) Adrenal mass, left: Code(s): E27.8 - Other specified disorders of adrenal gland Status: Acute Assessment and Plan: Agree with workup underway. CT results noted. Nephrology consulted. (4) CAD (coronary artery disease): Qualifiers: Coronary Disease-Associated Artery/Lesion type: [place] artery [place] vs. transplanted heart: [place] heart Associated angina: without angina Qualified Code(s): I25.10 - Atherosclerotic heart disease of [place] coronary artery without angina pectoris Code(s): I25.10 - Atherosclerotic heart disease of [place] coronary artery without angina pectoris Status: Acute Assessment and Plan: As above. Continue aspirin, statin, clopidogrel. (5) Dyslipidemia: Code(s): E78.5 - Hyperlipidemia, unspecified Status: Acute Assessment and Plan: Atorvastatin 80 mg at bedtime. Check lipid panel. (6) Tobacco abuse: Code(s): Z72.0 - Tobacco use Status: Acute Assessment and Plan: Smoking cessation counseling. Additional Plan Plan discussed with Dr. Teran [id number] 01/26/2020 Time Spent With Patient Time with patient: 15 - 25 minutes Subjective Date/time seen: 01/26/20 15:31 Interval history: Follow-up for: Hypertensive crisis, elevated troponin, coronary artery disease, hyperlipidemia, tobacco use Date of service: 01/26/2020 Subjective: Denied chest discomfort, shortness of breath, lightheadedness or palpitations. Oxygen being weaned. Did not sleep well because of the SCSs. Review of Systems Review of Systems: All systems reviewed & are unremarkable except as noted in HPI and below Constitutional: Constitutional: Reports other (Generalized body aches) Eyes: Eyes: Denies blurry vision ENT: Reports Normal hearing present, Denies dizziness and Denies epistaxis Cardiovascular: Cardiovascular: Denies chest pain at rest, Denies rapid heart rate, Denies irregular heart rhythm, Denies leg edema, Denies lightheadedness, Denies palpitations and Denies orthopnea Respiratory: Respiratory: Denies cough, Denies dyspnea and Denies dyspnea on exertion Gastrointestinal: Gastrointestinal: Denies ab
--- NOTE | 2020-01-26 15:51 | WPDNEURCNPN ---
Assessment and Plan Assessment and plan (1) Coronary artery disease: Code(s): I25.10 - Atherosclerotic heart disease of [place] coronary artery without angina pectoris Status: Acute (2) Hyperglycemia: Code(s): R73.9 - Hyperglycemia, unspecified Status: Acute (3) Tobacco abuse: Code(s): Z72.0 - Tobacco use Status: Acute (4) Left adrenal mass: Code(s): E27.8 - Other specified disorders of adrenal gland Status: Acute (5) Hypertension: Code(s): I10 - Essential (primary) hypertension Status: Acute (6) Hypertensive crisis: Code(s): I16.9 - Hypertensive crisis, unspecified Status: Acute (7) Weakness of right lower extremity: Code(s): R29.898 - Other symptoms and signs involving the musculoskeletal system Status: Acute (8) Anxiety: Code(s): F41.9 - Anxiety disorder, unspecified Status: Acute (9) Osteoarthritis: Qualifiers: Osteoarthritis location: unspecified site Osteoarthritis type: unspecified Qualified Code(s): M19.90 - Unspecified osteoarthritis, unspecified site Code(s): M19.90 - Unspecified osteoarthritis, unspecified site Status: Acute (10) CAD (coronary artery disease): Qualifiers: Coronary Disease-Associated Artery/Lesion type: [place] artery [place] vs. transplanted heart: [place] heart Associated angina: without angina Qualified Code(s): I25.10 - Atherosclerotic heart disease of [place] coronary artery without angina pectoris Code(s): I25.10 - Atherosclerotic heart disease of [place] coronary artery without angina pectoris Status: Acute (11) Dyslipidemia: Code(s): E78.5 - Hyperlipidemia, unspecified Status: Acute (12) Essential (primary) hypertension: Code(s): I10 - Essential (primary) hypertension Status: Acute Additional Plan appropriate workup has been ordered I will be happy to follow Consult date: 01/26/20 Time Seen: 15:00 HPI: Terese Bentley is a 74 year old female who is admitted because of multiple issues medically particularly the hypertensive crisis she tells me that she was having tingling and numbness which come and go primarily on the left side without any obvious motor weakness she is being treated at this point for her high blood pressure and scheduled to have a brain MRI performed she is already on aspirin and Plavix she denies any headache nausea vomiting chest pain or shortness of breath she is right-handed Review of Systems Review of Systems: All systems reviewed & are unremarkable except as noted in HPI and below PMFSH Past Medical History Medical History Anxiety Coronary artery disease Abnormal MPI in 11/2014.Subsequent cardiac catheterization showed high-grade mid LAD stenosis in which a bare-metal stent was placed per Dr. Perez. She is followed in the clinic by Dr. Antonella Edmonds. Dyslipidemia Hypertension Left adrenal mass Reportedly discovered in 2014 with negative workup for pheochromocytoma. Osteoarthritis Tobacco abuse Surgical History Surgical History History of basal cell carcinoma excision Excised from the left nasal bridge. History of coronary artery stent placement (~11/2014) Bare-metal stent to mid LAD. History of left hip replacement (~2014) around 2017 Family History Family History Father Acute myocardial infarction at age 57. Mother Breast cancer Social History Social History Social History: Surrogate decision maker: Jose Bentley, . Code status: Full code. Smoking packs per day: 0.5 Smoking cigarettes per day: 10.0 Smoking status: Former smoker Tobacco type: cigarettes Second hand tobacco smoke exposure: Yes Additional smoking assessment comments: Stacy
[2020-01-26] MEDS: niCARdipine 20 MG/200 ML 20 MG/200 ML BAG 110 MG IV CONT ×4 (17:08→22:46)
--- NOTE | 2020-01-26 17:31 | PM.CNNEP ---
Assessment and Plan Assessment and plan (1) Hypertensive crisis: Code(s): I16.9 - Hypertensive crisis, unspecified Status: Acute Assessment and Plan: This patient has severe hypertension. She has had hypertension for 35 or 40 years. The onset of her hypertension is in keeping with essential hypertension. However her mother father and all of her siblings have no blood pressure problems. She does have a grandmother with hypertension. Recently her blood pressures been harder to control. She is now up to 6 medications. She has several red flags consistent with an underlying cause for high blood pressure besides the genetics. She has a large adrenal adenoma. Sometimes this can secrete hormones such as Aldosterone, catecholamines, and or cortisol. She has a strange appearance on her CT of her left kidney. It could be a defect of its proximity to the large adenoma but possibly could be some sort of arterial issue. In addition she has coronary disease an she is a former smoker with hyperlipidemia. So she is at risk for having renal artery stenosis. Will get a CT a of the renal arteries tomorrow. The patient he saturates at night so she could have sleep apnea. She is on Naprosyn which can cause sodium retention and hypertension as well. We can also check a TSH and PTH to make sure these are okay as these can eat cause hypertension. We will check a PTH, TSH, 24hour urine metanephrines, 20 for a urine cortisol. Will get a sleep study. We will also get a CT angio to look at the renal arteries. I will add clonidine to try to get her off the IV nicardipine. One should not use clonidine and beta-blockers at the same time because of the risk of hypertension with withdrawal but this is just to get her off the IV meds and we can adjust meds for her outpatient use. (2) Adrenal mass, left: Code(s): E27.8 - Other specified disorders of adrenal gland Status: Acute Assessment and Plan: This mass is stable in appearance but it is unclear whether it is hormonally active. (3) CAD (coronary artery disease): Qualifiers: Coronary Disease-Associated Artery/Lesion type: [place] artery [place] vs. transplanted heart: [place] heart Associated angina: without angina Qualified Code(s): I25.10 - Atherosclerotic heart disease of [place] coronary artery without angina pectoris Code(s): I25.10 - Atherosclerotic heart disease of [place] coronary artery without angina pectoris Status: Acute Assessment and Plan: No current chest pain. History of Present Illness Reason for Consult Consult date: 01/26/20 Chief Complaint Chief complaint: Elevated blood pressure. History of Present Illness Narrative: Terese is a very pleasant 74-year-old lady who has multiple medical problems including hypertension since 34 years old, hyperlipidemia, coronary disease, anxiety, left adrenal myelolipoma, osteoarthritis, tobacco abuse. The patient has had hypertension for many years. She says that she has [place] hypertension. She takes her blood pressure frequently at home and gets readings between 120 and 150. However when she goes the doctor's office it is high. So she often has another medicine added to her then current regimen. So now she is up to 6 medications for her blood pressure. The patient has had some neurologic issues. She saw a neurologist and he suspected a pinched nerve in her back causing some leg pain. He prescribed home health. The home health nurse came for the initial evaluation and found that her blood pressure was very high and so she was sent to the emergency room. It was very high there as well. She was placed on IV meds and admitted to the ICU. Currently she is on nicardipine to bring the blood pressure back down. She says that she has never had pancreatitis or kidney stones. She has not had any rapid weight loss or weight gain. She had a desaturation when she slept earlier today so
[2020-01-26 17:36] LABS: Glucose Point of Care 122 (65-105)
--- NOTE | 2020-01-26 17:53 | PM.EVENT ---
Event Note Event Note Event Note: Discussed with cardiology. will hold off on aliskirin since on lisinopril will change atenolol to labetalol since stronger and won't make the pulse go as low. stop verapamil since on nicardipine and will use nifedipine instead tomorrow. consider spironolactone once renin and miguel come back.
[2020-01-26] MEDS: EZETIMIBE 10 MG TABLET PO (22:15)
[2020-01-26] MEDS: ATORVASTATIN 40 MG TABLET 80 MG PO (22:15)
[2020-01-26] MEDS: MELATONIN 5 MG TABLET 20 MG PO (22:15)
[2020-01-26 22:43] LABS: Glucose Point of Care 158 (65-105)
--- NOTE | 2020-01-26 23:25 | PCRCNOTE ---
Patient refused the apnea link study.
[2020-01-27] VITALS (39 sets, daily range): BP systolic 107–170; BP diastolic 28–91; PULSE 50–625; RESP 14–28; TEMP 36.7–37; O2SAT 87–98
[2020-01-27] MEDS: niCARdipine 20 MG/200 ML 20 MG/200 ML BAG 110 MG IV CONT ×10 (00:30→17:52)
--- NOTE | 2020-01-27 03:13 | PC.NURSE ---
01/26/20 at 2100........Patient refusing apnea link tonight. States will do it tomorrow night. Teaching done regarding importance of study. Patient states understanding.
--- NOTE | 2020-01-27 03:15 | PC.NURSE ---
01/27/20 at 0100........patient assisted to the bedside commode for final urine to complete 24 hour urine collection. [place] sent to lab for 4 studies which I verified with freezer laboratory technician.
[2020-01-27 04:13] LABS: Basophils Absolute Auto 0.1 K/mm3 (0.0-0.1); Basophils Percent Auto 0.7 % (0.2-1.2); Eosinophils Absolute Auto 0.2 K/mm3 (0-0.3); Hematocrit 36.5 % (37.0-47.0); Hemoglobin 12.3 g/dL (12.0-15.0); Immature Granulocyte Absolute 0.03 K/mm3 (0.00-0.031); Immature Granulocyte Percent A 0.4 % (0-0.5); Lymphocytes Absolute Auto 1.19 K/mm3 (0.9-3.2); Lymphocytes Percent Auto 14.3 % (18.3-44.2); Mean Corpuscular HGB Conc 33.7 g/dl (32-36); Mean Corpuscular Hemoglobin 29.8 pg (26-34); Mean Corpuscular Volume 88.4 fl (80-100); Mean Platelet Volume 10.7 fl (7.4-10.4); Monocytes Absolute Auto 0.7 K/mm3 (0.1-0.6); Monocytes Percent Auto 8.7 % (2.6-8.5); Neutrophils Absolute Auto 6.1 K/mm3 (1.3-6.7); Neutrophils Percent Auto 73.9 % (45.5-73.1); Platelet Count Result 234 k/mm3 (150-375); Red Blood Count 4.13 M/mm3 (4.2-5.4); Red Cell Distribution Width 13.1 % (11.5-14.5); White Blood Count 8.3 K/mm3 (4.5-10.0)
[2020-01-27 04:27] LABS: Albumin Level 3.1 g/dL (3.5-5.1); Blood Urea Nitrogen 18 mg/dL (7-17); Calcium 8.5 mg/dL (8.4-10.2); Carbon Dioxide 23 mmol/L (22-30); Chloride 96 mmol/L (98-107); Cholesterol 166 mg/dL (0-200); Estimated CRCL calculation 52 ml/min; Estimated Glomerular Filt Rate > 60; Glucose 145 mg/dL (65-105); HDL Direct 24 mg/dL; Magnesium 1.8 mg/dL (1.6-2.3); Phosphorus 3.9 mg/dL (2.5-4.5); Potassium 3.4 mmol/L (3.4-5.0); Sodium 126 mmol/L (137-145); Triglycerides 162 mg/dL (<150)
[2020-01-27 04:38] LABS: LDL Cholesterol Direct 103 mg/dL
--- NOTE | 2020-01-27 08:10 | WPDINTPN ---
Progress Note: A&P Assessment and Plan (1) Hypertensive crisis: Code(s): I16.9 - Hypertensive crisis, unspecified Status: Acute Assessment and Plan: Hypertensive crisis, patient was found to have a blood pressure of 270/100 for which she was sent to the ER. Systolic blood pressures in the ER was in the 250s, received hydralazine. Upon arrival to the ICU blood pressures in the 220s. Nicardipine infusion is being started -continue to titrate nicardipine to keep blood pressure between 140 and 160 systolic -patient was seen by cardiology and nephrology yesterday -patient has been started on p.o. hydralazine, HCTZ, labetalol and lisinopril -will monitor as the day goes and try to wean off nicardipine. -p.o. 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 Questionable pheochromocytoma, 24 hour metanephrines and catecholamines sent and pending at this point -nephrology and cardiology following -CT abdomen pelvis to evaluate renal arteries is already ordered (2) Weakness of right lower extremity: Code(s): R29.898 - Other symptoms and signs involving the musculoskeletal system Status: Acute Assessment and Plan: Patient follows with Dr. Bradford, will have him follow-up with the patient -lumbar spine MRI on 12/25/2019 showed severe lumbar spondylosis, mild central canal stenosis at various sites and moderate right neural foraminal stenosis at L3 and L4. -patient to an MRI of the brain to exclude CVA -right knee x-ray shows osteoarthritis -PT/OT following the patient (3) Anxiety: Code(s): F41.9 - Anxiety disorder, unspecified Status: Acute Assessment and Plan: Patient has a history of anxiety will continue her home dose lorazepam (4) CAD (coronary artery disease): Qualifiers: Coronary Disease-Associated Artery/Lesion type: [place] artery [place] vs. transplanted heart: [place] heart Associated angina: without angina Qualified Code(s): I25.10 - Atherosclerotic heart disease of [place] coronary artery without angina pectoris Code(s): I25.10 - Atherosclerotic heart disease of [place] coronary artery without angina pectoris Status: Acute Assessment and Plan: Coronary artery disease, continue, aspirin labetalol and AMY-inhibitor Echo Summary 1. There is moderate concentric increased left ventricular wall thickness. 2. Left ventricular systolic function is normal, estimated at 65-70%. 3. Left atrial chamber dimension is severely enlarged. 4. The mitral valve annulus is severely calcified. 5. There is mild aortic valve sclerosis. (5) Essential (primary) hypertension: Code(s): I10 - Essential (primary) hypertension Status: Acute Assessment and Plan: Patient with history of essential hypertension, restarted home atenolol, hydralazine, hydrochlorothiazide, lisinopril, verapamil, [place] (6) Dyslipidemia: Code(s): E78.5 - Hyperlipidemia, unspecified Status: Acute Assessment and Plan: Continue home ezetimibe and atorvastatin Additional Plan Code status: Full code DVT prophylaxis -since blood pressure is adequately controlled live start Lovenox DVT prophylaxis Code Status - Full Code Subjective Date/time seen: 01/27/20 0810 Patient seen and examined today. Laying in bed in no distress. Denies any new complaints today and feels good. Patient overnight continued to require nicardipine infusion for blood pressure control. She would like to sit up in a chair into physical therapy today. She is eager to know the results for test but has no specific complaints at this time. Her appetite is poor. Review of Systems Review of Systems: All systems reviewed & are unremarkable except as noted in HPI and below Exam Const: General: comfortable and no acute distress HENMT: Mouth: Yes dry mucous membranes E
[2020-01-27 08:18] LABS: Glucose Point of Care 162 (65-105)
--- NOTE | 2020-01-27 08:57 | PM.IMPN ---
Progress Note: A&P Assessment and Plan (1) Hypertensive crisis: Code(s): I16.9 - Hypertensive crisis, unspecified Status: Acute Assessment and Plan: Blood pressures 236/93 on admission. Blood pressure initially improved with hydralazine but then rebounded requiring a nicardipine drip. Echo showing diastolic dysfunction grade 1 with EF of 65% and severely enlarged left atrium and moderate concentric LVH. Oral anti-HTn medications are being adjusted. Appreciate chocolatier and Cardiology input. Continue to wean nicardipine as blood pressure allows. Check CXR. (2) Weakness of right lower extremity: Code(s): R29.898 - Other symptoms and signs involving the musculoskeletal system Status: Acute Assessment and Plan: Patient has right leg weakness with previous evaluation as outpatient concerning for lumbar spinal disease. Lumbar spine MRI December 24 showing severe lumbar spondylosis, mild central canal stenosis at various sites and moderate right neural foraminal stenosis at L3-4. This appears only mildly worse from 2015. Agree with MRI of the brain to exclude CVA. Right knee x-ray does show osteoarthritis as well which could be contributing to her weakness. PT/OT consulted. (3) Elevated troponin: Code(s): R79.89 - Other specified abnormal findings of blood chemistry Status: Acute Assessment and Plan: Troponin only mildly elevated to 0.044. Most likely related the severe hypertension. No symptoms of cardiac ischemia. 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 This has been known since 2015, with previous workup negative for pheochromocytoma. Doubtful this is playing a part in her current medical condition. (5) Diabetes mellitus: Code(s): E11.9 - Type 2 diabetes mellitus without complications Status: Acute Assessment and Plan: Patient noted to be hyperglycemic on admission. A1c 8.3. Discussed with patient. Glucose reviewed on 01/27/2020. Glucose reasonably well controlled. Dietitian consult. Continue to monitor on Accu-Cheks with sliding scale protocol. Hypoglycemia protocol available as needed. Plan for metformin at discharge. (6) Dyslipidemia: Code(s): E78.5 - Hyperlipidemia, unspecified Status: Acute Assessment and Plan: LFTs within normal limits. Continue atorvastatin and ezetimibe. (7) Coronary artery disease: Code(s): I25.10 - Atherosclerotic heart disease of [place] coronary artery without angina pectoris Status: Acute Assessment and Plan: Patient with history of CAD status post bare metal stent to the mid LAD in 2014. Continue aspirin, clopidogrel, beta-kayode, and statin. Atenolol changed to Labteolol. Subjective Date/time seen: 01/27/20 08:57 Interval history: 74yo female with hx of HTN who was sent to the emergency room because elevated blood pressure. She denies any other symptoms such as chest pain, shortness of breath, nausea, vomiting, headache, visual changes. She has been compliant with her medications. She denies any dietary indiscretion. She was admitted to the ICU and started on nicardipine drip. Date of service 01/27/20: Patient remains on the nicardipine drip. She has been mildly bradycardic. She refused a sleep apnea test overnight. She is eating normally. She has decreased appetite but no nausea or vomiting. Nursing states patient has desaturations of oxygen when she is slee
[2020-01-27] MEDS: lisinopriL 20 MG TABLET 40 MG PO (09:07)
[2020-01-27] MEDS: ASPIRIN 81 MG ENTERIC TABLET PO (09:07)
[2020-01-27] MEDS: CLOPIDOGREL BISULFATE 75 MG TABLET PO (09:07)
[2020-01-27] MEDS: hydrALAZINE HCL 25 MG TABLET PO ×3 (09:08→13:50)
[2020-01-27] MEDS: POTASSIUM CHLORIDE 20 MEQ TABLET 40 MEQ PO (09:09)
--- NOTE | 2020-01-27 09:50 | PM.PNCARD ---
Progress Note: A&P Additional Plan Cardiac status stable no symptoms to suggest an ischemic problem. Antihypertensives are being advanced. I would not hold her beta-kayode for asymptomatic sinus rhythm in the 50s. Hopefully her nicardipine can be weaned later today. Will defer fine tuning of these medications to the die maker apprentice as most of the order seem to be coming from their service. Nodes yesterday indicated intention to start clonidine but it is not on the medication list as of now Franki Teran MD [facility] Subjective Date/time seen: 01/27/20 09:50 Interval history: Follow-up visit in this 74-year-old lady with a history of coronary disease remote stenting of the LAD admitted because of severe hypertension. Patient is asymptomatic this morning appears that die maker apprentice is managing the patient's antihypertensives. She is still on intravenous nicardipine has not received her beta-kayode this morning because orders were to hold off with heart rates under 60. Patient is asymptomatic with sinus rhythm heart rate is 57. Advised the nurse to give this morning's dose of labetalol. Plans for later today are CT of the renal arteries Exam Const: General: comfortable and no acute distress HENMT: Mouth: Yes moist mucous membranes Eyes: Sclera: sclerae normal Pupils: Equal, round and reactive pupils present Neck: Neck: supple and no JVD Thyroid: thyroid normal Resp: Effort & Inspection: normal respiratory effort Auscultation: clear to auscultation bilaterally Cardio: Rate: regular rate Rhythm: regular rhythm GI: Auscultation: normal bowel sounds Skin: General skin exam: normal color Neuro: Cognition (Neuro): normal cognition Extrem: General: normal to inspection Objective Data Vital Signs Vital Signs: Vital Signs - 24 hr 01/26/20 10:00 01/26/20 11:02 01/26/20 12:00 Temperature 36.8 C Pulse Rate 54 L 51 L 54 L Respiratory Rate 18 17 Blood Pressure 148/49 H 148/61 H 132/37 L Pulse Oximetry 89 L 96 01/26/20 14:00 01/26/20 14:18 01/26/20 15:11 Temperature Pulse Rate 51 L 52 L 51 L Respiratory Rate 14 Blood Pressure 138/30 L 151/52 H 159/59 H Pulse Oximetry 96 01/26/20 16:00 01/26/20 16:16 01/26/20 16:36 Temperature 36.8 C Pulse Rate 53 L 53 L 52 L Respiratory Rate 22 H Blood Pressure 181/88 H 181/57 H 194/87 H Pulse Oximetry 94 01/26/20 17:06 01/26/20 17:08 01/26/20 18:00 Temperature Pulse Rate 56 L 56 L 54 L Respiratory Rate 22 H Blood Pressure 167/64 H 167/64 H 157/49 H Pulse Oximetry 94 01/26/20 18:12 01/26/20 19:02 01/26/20 20:00 Temperature 36.9 C Pulse Rate 55 L 52 L 55 L Respiratory Rate 18 Blood Pressure 157/49 H 146/51 H 141/53 H Pulse Oximetry 97 01/26/20 21:00 01/26/20 22:00 01/26/20 22:16 Temperature Pulse Rate 59 L 57 L 47 L Respiratory Rate 18 18 Blood Pressure 159/48 H 149/53 H Pulse Oximetry 96 94 01/26/20 22:46 01/26/20 23:00 01/27/20 00:00 Temperature Pulse Rate 53 L 48 L 57 L Respiratory Rate 12 24 H Blood Pressure 149/54 H 150/45 H 145/51 H Pulse Oximetry 94 87 L 01/27/20 00:30 01/27/20 01:00 01/27/20 02:00 Temperature 37.0 C Pulse Rate 54 L 60 50 L Respiratory Rate 16 22 H Blood Pressure 158/44 H 162/44 H 128/37 L Pulse Oximetry 90 95 01/27/20 02:20 01/27/20 03:00 01/27/20 04:00 Temperature 36.7 C Pulse Rate 53 L 57 L 55 L Respiratory Rate 24 H 20 Blood Pressure 128/37 L 129/28 L 136/44 L Pulse Oximetry 95 91 01/27/20 04:17 01/27/20 05:00 01/27/20 06:00 Temperature Pulse Rate 59 L 55 L 50 L Respiratory Rate 22 H 28 H Blood Pressure 136/44 L 149/43 H 155/46 H Pulse Oximetry 90 88 L 01/27/20 06:08 01/27/20 07:07 01/27/20 07:23 Temperature 36.7 C Pulse Rate 58 L 50 L 58 L Respiratory Rate 17 Blood Pressure 155/46 H 142/43 H Pulse Oximetry 92 01/27/20 07:52 01/27/20 08:02 Temperature Pulse Rate 53 L 51 L Respiratory Rate Blood Pressure 142/4
[2020-01-27] MEDS: LORazepam 0.5 MG TABLET PO (09:58)
[2020-01-27] MEDS: hydroCHLOROthiazide 25 MG TABLET PO (11:50)
[2020-01-27 11:57] LABS: Glucose Point of Care 152 (65-105)
--- NOTE | 2020-01-27 12:03 | PM.PNNEP ---
Progress Note: A&P Assessment and Plan (1) Hypertensive crisis: Code(s): I16.9 - Hypertensive crisis, unspecified Status: Acute Assessment and Plan: This patient has severe hypertension. She has underlying essential hypertension for 30+ years. She has significant white coat hypertension. Blood pressures at home seemed to have been pretty well controlled up until a few days ago. Recent worsening of blood pressure brought her into the emergency room and now she is requiring high-dose nicardipine to keep the blood pressure in check. She also has an adrenal adenoma which is been there for 5 years and is quite large. She had a CTA which ruled out renal artery stenosis. Hormonal studies are all pending. In the meantime we are trying to treat her blood pressure and get her off her nicardipine drip. The nicardipine does come with lots of fluid and her chest x-ray shows pulmonary edema so I am going to give her some Lasix. She is currently on hydralazine 25 3 times a day, hydrochlorothiazide 25 mg daily, and labetalol 200 every 8 hours. She had been on atenolol and Verapamil but these were discontinued because of her low heart rate. Will increase the hydralazine to 50 3 times a day. I will also give her furosemide to get rid of the fluid which also could help her blood pressure. He eventually I would like to add nifedipine as well. (2) Adrenal mass, left: Code(s): E27.8 - Other specified disorders of adrenal gland Status: Acute Assessment and Plan: This mass is stable in appearance but it is unclear whether it is hormonally active. Hormonal tests are all pending. (3) CAD (coronary artery disease): Qualifiers: Coronary Disease-Associated Artery/Lesion type: [place] artery [place] vs. transplanted heart: [place] heart Associated angina: without angina Qualified Code(s): I25.10 - Atherosclerotic heart disease of [place] coronary artery without angina pectoris Code(s): I25.10 - Atherosclerotic heart disease of [place] coronary artery without angina pectoris Status: Acute Assessment and Plan: No current chest pain. Subjective Date/time seen: 01/27/20 12:03 Interval history: Terese is feeling better today. She is up in a chair. She is still on IV nicardipine at 11 Review of Systems Cardiovascular: Cardiovascular: Reports no additional cardiovascular complaints Respiratory: Respiratory: Reports no additional respiratory complaints Gastrointestinal: Gastrointestinal: Reports no additional gastrointestinal complaints Genitourinary: Genitourinary: Reports no additional female genitourinary complaints Exam Narrative: Exam Narrative: WDWN in NAD skin no rash head ncat lungs clear cor reg no rub abd BS+ nontender and soft ext no edema. Objective Data Vital Signs Vital Signs: Vital Signs - 24 hr 01/26/20 14:00 01/26/20 14:18 01/26/20 15:11 Temperature Pulse Rate 51 L 52 L 51 L Respiratory Rate 14 Blood Pressure 138/30 L 151/52 H 159/59 H Pulse Oximetry 96 01/26/20 16:00 01/26/20 16:16 01/26/20 16:36 Temperature 36.8 C Pulse Rate 53 L 53 L 52 L Respiratory Rate 22 H Blood Pressure 181/88 H 181/57 H 194/87 H Pulse Oximetry 94 01/26/20 17:06 01/26/20 17:08 01/26/20 18:00 Temperature Pulse Rate 56 L 56 L 54 L Respiratory Rate 22 H Blood Pressure 167/64 H 167/64 H 157/49 H Pulse Oximetry 94 01/26/20 18:12 01/26/20 19:02 01/26/20 20:00 Temperature 36.9 C Pulse Rate 55 L 52 L 55 L Respiratory Rate 18 Blood Pressure 157/49 H 146/51 H 141/53 H Pulse Oximetry 97 01/26/20 21:00 01/26/20 22:00 01/26/20 22:16 Temperature Pulse Rate 59 L 57 L 47 L Respiratory Rate 18 18 Blood Pressure 159/48 H 149/53 H Pulse Oximetry 96 94 01/26/20 22:46 01/26/20 23:00 01/27/20 00:00 Temperature Pulse Rate 53 L 48 L 57 L Respiratory Rate 12 24 H Blood Pressure 149/54 H 150/45 H 145/51 H Pulse
--- NOTE | 2020-01-27 14:28 | WPDNEUROPN ---
Progress Note: A&P Assessment and Plan (1) Diabetes mellitus: Code(s): E11.9 - Type 2 diabetes mellitus without complications Status: Acute (2) Coronary artery disease: Code(s): I25.10 - Atherosclerotic heart disease of [place] coronary artery without angina pectoris Status: Acute (3) Hyperglycemia: Code(s): R73.9 - Hyperglycemia, unspecified Status: Acute (4) Tobacco abuse: Code(s): Z72.0 - Tobacco use Status: Acute (5) Left adrenal mass: Code(s): E27.8 - Other specified disorders of adrenal gland Status: Acute (6) Adrenal mass, left: Code(s): E27.8 - Other specified disorders of adrenal gland Status: Acute (7) Hypertension: Code(s): I10 - Essential (primary) hypertension Status: Acute (8) Hypertensive crisis: Code(s): I16.9 - Hypertensive crisis, unspecified Status: Acute (9) Weakness of right lower extremity: Code(s): R29.898 - Other symptoms and signs involving the musculoskeletal system Status: Acute (10) Osteoarthritis: Qualifiers: Osteoarthritis location: unspecified site Osteoarthritis type: unspecified Qualified Code(s): M19.90 - Unspecified osteoarthritis, unspecified site Code(s): M19.90 - Unspecified osteoarthritis, unspecified site Status: Acute (11) CAD (coronary artery disease): Qualifiers: Coronary Disease-Associated Artery/Lesion type: [place] artery [place] vs. transplanted heart: [place] heart Associated angina: without angina Qualified Code(s): I25.10 - Atherosclerotic heart disease of [place] coronary artery without angina pectoris Code(s): I25.10 - Atherosclerotic heart disease of [place] coronary artery without angina pectoris Status: Acute (12) Dyslipidemia: Code(s): E78.5 - Hyperlipidemia, unspecified Status: Acute (13) Peripheral neuropathy: Code(s): G62.9 - Polyneuropathy, unspecified Status: Acute (14) Lumbar spondylosis: Code(s): M47.816 - Spondylosis without myelopathy or radiculopathy, lumbar region Status: Acute Additional Plan patient already had the MRI of the thoracic and the lumbar spine performed she denies any neck pain or anything to suggest a the cervical issues she is slated to have the MRI of the brain performed and I may end of ordering a MRI of the cervical spine for completeness sake to evaluate her leg weakness however she clearly has the evidence of the peripheral neuropathy in the lower extremities more than anything else I will be following her Review of Systems Review of Systems: All systems reviewed & are unremarkable except as noted in HPI and below Exam Const: General: comfortable and no acute distress HENMT: General nose exam: Normal nares present Mouth: Yes moist mucous membranes Eyes: General: appearance normal, both eyes and all related structures Neck: Neck: supple and no JVD Resp: Effort & Inspection: normal respiratory effort Auscultation: clear to auscultation bilaterally Cardio: Rate: regular rate Rhythm: regular rhythm GI: Auscultation: normal bowel sounds Skin: General skin exam: normal color and no rashes or lesions noted Neuro: Other: patient is awake alert well oriented time place and person is speech and language functions are normal upper extremity strength is fairly decent lower extremity strength is 4+ over 5 with depressed reflexes and negative Babinski sign no sensory level is identified she does have evidence of the peripheral neuropathy Extrem: General: normal to inspection Psych: Mental Status: mental status grossly normal Objective Data Vital Signs Vital Signs: Vital Signs - 24 hr 01/26/20 15:11 01/26/20 16:00 01/26/20 16:16 Temperature 36.8 C Pulse Rate 51 L 53 L 53 L Respiratory Rate 22 H Blood Pressure 159/59 H 181/88 H 181/57 H Pulse Oximetry 94 01/26/20 16:36 01/26/20 17:06 01/26/20 17:08 Temper
--- NOTE | 2020-01-27 14:55 | PCOTNOTE ---
Attempted to see patient for skilled OT, however, patient refused to participate in any ADL or any mobility at this time. Will continue plan of care tomorrow, 01/28/2020.
[2020-01-27] MEDS: hydrALAZINE HCL 25 MG TABLET 50 MG PO (16:40)
[2020-01-27] MEDS: FUROSEMIDE INJ 40 MG/4 ML VIAL IV PUSH (16:40)
[2020-01-27 16:54] LABS: Glucose Point of Care 144 (65-105)
[2020-01-27] MEDS: niCARdipine 20 MG/200 ML 20 MG/200 ML BAG 85 MG IV CONT ×2 (20:08→22:28)
[2020-01-27] MEDS: ATORVASTATIN 40 MG TABLET 80 MG PO (20:12)
[2020-01-27] MEDS: EZETIMIBE 10 MG TABLET PO (20:12)
[2020-01-27] MEDS: LABETALOL HCL 100 MG TABLET 200 MG PO (21:44)
[2020-01-27] MEDS: amLODIPine BESYLATE 5 MG TABLET 10 MG PO (21:45)
[2020-01-27] MEDS: MELATONIN 5 MG TABLET 20 MG PO (21:45)
[2020-01-27 21:50] LABS: Glucose Point of Care 131 (65-105)
[2020-01-28] VITALS (23 sets, daily range): BP systolic 99–154; BP diastolic 31–61; PULSE 53–84; RESP 16–28; TEMP 36.4–37; O2SAT 90–100
[2020-01-28] MEDS: niCARdipine 20 MG/200 ML 20 MG/200 ML BAG 60 MG IV CONT (00:55)
[2020-01-28] MEDS: LORazepam 0.5 MG TABLET PO ×2 (01:26→20:55)
[2020-01-28 04:29] LABS: Hematocrit 35.8 % (37.0-47.0); Mean Corpuscular HGB Conc 33.5 g/dl (32-36); Mean Corpuscular Hemoglobin 30.4 pg (26-34); Mean Corpuscular Volume 90.6 fl (80-100); Mean Platelet Volume 10.7 fl (7.4-10.4); Platelet Count Result 220 k/mm3 (150-375); Red Blood Count 3.95 M/mm3 (4.2-5.4); Red Cell Distribution Width 13.3 % (11.5-14.5); White Blood Count 7.9 K/mm3 (4.5-10.0)
[2020-01-28 04:44] LABS: Albumin Level 3.3 g/dL (3.5-5.1); Blood Urea Nitrogen 17 mg/dL (7-17); Calcium 8.7 mg/dL (8.4-10.2); Carbon Dioxide 23 mmol/L (22-30); Chloride 100 mmol/L (98-107); Estimated CRCL calculation 54 ml/min; Estimated Glomerular Filt Rate > 60; Glucose 153 mg/dL (65-105); Phosphorus 5.2 mg/dL (2.5-4.5); Potassium 3.6 mmol/L (3.4-5.0); Sodium 131 mmol/L (137-145)
[2020-01-28 04:46] LABS: Alanine Aminotransferase 25 U/L (4-35); Albumin Level 3.3 g/dL (3.5-5.1); Alkaline Phosphatase 83 U/L (38-126); Aspartate Amino Transferase 32 U/L (14-36); Bilirubin,Total 0.5 mg/dL (0.2-1.3); Blood Urea Nitrogen 17 mg/dL (7-17); Calcium 8.8 mg/dL (8.4-10.2); Carbon Dioxide 23 mmol/L (22-30); Chloride 100 mmol/L (98-107); Estimated CRCL calculation 54 ml/min; Estimated Glomerular Filt Rate > 60; Glucose 154 mg/dL (65-105); Magnesium 1.7 mg/dL (1.6-2.3); Potassium 3.6 mmol/L (3.4-5.0); Sodium 132 mmol/L (137-145)
[2020-01-28] MEDS: LABETALOL HCL 100 MG TABLET 200 MG PO ×3 (06:14→20:50)
[2020-01-28 08:14] LABS: Glucose Point of Care 157 (65-105)
--- NOTE | 2020-01-28 09:25 | WPDINTPN ---
Progress Note: A&P Assessment and Plan (1) Hypertensive crisis: Code(s): I16.9 - Hypertensive crisis, unspecified Status: Acute Assessment and Plan: Hypertensive crisis, patient was found to have a blood pressure of 270/100 for which she was sent to the ER. Systolic blood pressures in the ER was in the 250s, received hydralazine. Upon arrival to the ICU blood pressures in the 220s. Nicardipine infusion was started -nicardipine infusion weaned off overnight -patient was seen by cardiology and nephrology yesterday -patient has been started on p.o. hydralazine, HCTZ, labetalol, Norvasc and lisinopril -will monitor as the day goes and try to keep her off of nicardipine. -p.r.n. IV hydralazine added -p.o. 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 Questionable pheochromocytoma, 24 hour metanephrines and catecholamines sent and pending at this point -renin and aldosterone levels are pending -nephrology and cardiology following -CT abdomen pelvis was negative for renal artery stenosis (2) Weakness of right lower extremity: Code(s): R29.898 - Other symptoms and signs involving the musculoskeletal system Status: Acute Assessment and Plan: Patient follows with Dr. Bradford, will have him follow-up with the patient -lumbar spine MRI on 12/25/2019 showed severe lumbar spondylosis, mild central canal stenosis at various sites and moderate right neural foraminal stenosis at L3 and L4. -MRI brain showed chronic cerebral white matter disease with no acute or subacute CVA -right knee x-ray shows osteoarthritis -PT/OT following the patient (3) Anxiety: Code(s): F41.9 - Anxiety disorder, unspecified Status: Acute Assessment and Plan: Patient has a history of anxiety will continue her home dose lorazepam (4) CAD (coronary artery disease): Qualifiers: Coronary Disease-Associated Artery/Lesion type: [place] artery [place] vs. transplanted heart: [place] heart Associated angina: without angina Qualified Code(s): I25.10 - Atherosclerotic heart disease of [place] coronary artery without angina pectoris Code(s): I25.10 - Atherosclerotic heart disease of [place] coronary artery without angina pectoris Status: Acute Assessment and Plan: Coronary artery disease, continue, aspirin labetalol and AMY-inhibitor Echo Summary 1. There is moderate concentric increased left ventricular wall thickness. 2. Left ventricular systolic function is normal, estimated at 65-70%. 3. Left atrial chamber dimension is severely enlarged. 4. The mitral valve annulus is severely calcified. 5. There is mild aortic valve sclerosis. (5) Essential (primary) hypertension: Code(s): I10 - Essential (primary) hypertension Status: Acute Assessment and Plan: Patient with history of essential hypertension see above (6) Dyslipidemia: Code(s): E78.5 - Hyperlipidemia, unspecified Status: Acute Assessment and Plan: Continue home ezetimibe and atorvastatin Additional Plan Code status: Full code DVT prophylaxis -since blood pressure is adequately controlled, will continue Lovenox DVT prophylaxis Will plan to transfer out of ICU today if blood pressure is controlled without any IV infusion drugs Subjective Date/time seen: 01/28/20 900 Patient feels better today and slept well overnight she has no new complaints. Her appetite has improved and she had her dinner last night. She is eager to go home. She continues to complain of weakness and numbness in her right leg which he states is better than before but is still present. Denies any fever chest pain shortness of breath headache nausea or vomiting. No abdominal pain or diarrhea Nicardipine was weaned off overnight. Patient had her MRI done this morning Interval history: Reason for consult: 01/26/20
--- NOTE | 2020-01-28 10:00 | PM.PNCARD ---
Progress Note: A&P Additional Plan Cardiovascular status is stable patient with remote history of percutaneous revascularization of the LAD admitted with hypertensive urgency. Blood pressure control is now quite good. Expect to move her out of the ICU shortly and continue current medical regimen Franki Teran MD [facility] Subjective Date/time seen: Date of service: 01/28/20 10:00 Interval history: Follow-up visit in this 74-year-old lady with a history of coronary disease remote stenting of the LAD admitted because of severe hypertension. Patient is asymptomatic this morning. Her blood pressure control is now very good and she is off of nicardipine infusion. Offers no cardiovascular complaints Exam Const: General: comfortable and no acute distress HENMT: Mouth: Yes moist mucous membranes Eyes: Sclera: sclerae normal Neck: Neck: supple and no JVD Thyroid: thyroid normal Resp: Effort & Inspection: normal respiratory effort Auscultation: clear to auscultation bilaterally Cardio: Rate: regular rate Rhythm: regular rhythm GI: Auscultation: normal bowel sounds Skin: General skin exam: normal color Neuro: Cognition (Neuro): normal cognition Objective Data Vital Signs Vital Signs: Vital Signs - 24 hr 01/27/20 10:02 01/27/20 11:04 01/27/20 11:43 Temperature Pulse Rate 54 L 58 L 57 L Respiratory Rate 20 Blood Pressure 148/47 H 162/48 H 162/45 H Pulse Oximetry 92 91 01/27/20 12:00 01/27/20 12:02 01/27/20 13:38 Temperature Pulse Rate 59 L 61 57 L Respiratory Rate 21 H Blood Pressure 170/54 H 145/72 H Pulse Oximetry 95 01/27/20 14:00 01/27/20 14:03 01/27/20 15:55 Temperature Pulse Rate 57 L 57 L 61 Respiratory Rate 16 Blood Pressure 137/87 148/45 H Pulse Oximetry 97 01/27/20 16:00 01/27/20 17:52 01/27/20 18:00 Temperature Pulse Rate 57 L 57 L 55 L Respiratory Rate 17 14 Blood Pressure 146/40 H 150/49 H 111/91 H Pulse Oximetry 97 97 01/27/20 18:41 01/27/20 20:00 01/27/20 20:08 Temperature 36.7 C Pulse Rate 60 61 625 H Respiratory Rate 28 H Blood Pressure 107/71 162/59 H 162/59 H Pulse Oximetry 96 01/27/20 21:00 01/27/20 21:44 01/27/20 22:00 Temperature Pulse Rate 62 57 L 54 L Respiratory Rate 20 20 Blood Pressure 140/54 L 149/50 H Pulse Oximetry 98 98 01/27/20 22:28 01/27/20 23:00 01/28/20 00:00 Temperature Pulse Rate 68 57 L 68 Respiratory Rate 26 H 28 H Blood Pressure 149/50 H 138/53 L 110/43 L Pulse Oximetry 94 90 01/28/20 00:42 01/28/20 00:43 01/28/20 00:52 Temperature 36.9 C 36.9 C Pulse Rate 65 Respiratory Rate Blood Pressure 123/33 L Pulse Oximetry 01/28/20 00:55 01/28/20 01:24 01/28/20 02:00 Temperature Pulse Rate 60 65 53 L Respiratory Rate 19 Blood Pressure 123/33 L 99/31 L 135/36 L Pulse Oximetry 97 01/28/20 02:48 01/28/20 03:15 01/28/20 04:00 Temperature 36.4 C Pulse Rate 57 L 57 L 71 Respiratory Rate 20 Blood Pressure 120/33 L 114/48 L 122/39 L Pulse Oximetry 96 01/28/20 06:00 01/28/20 06:13 01/28/20 06:14 Temperature Pulse Rate 62 61 66 Respiratory Rate 18 Blood Pressure 142/48 H 142/48 H Pulse Oximetry 97 Intake/Output Intake/Output: Intake & Output 01/25/20 01/26/20 01/27/20 01/28/20 23:59 23:59 23:59 23:59 Intake Total 2080 2390 2880 627 Output Total 588 646 5904 1600 Balance 1230 1790 1155 -363 Meds/Results Medications: Active Medications Generic Name Dose Route Start Last Admin Trade Name Freq PRN Reason Stop Dose Admin Acetaminophen 650 mg 01/25/20 12:47 Tylenol Tablet PO Q4H PRN Mild Pain (1-3) or Fever Amlodipine Besylate 10 mg 01/28/20 18:00 Norvasc PO DAILY@1800 [facility] Aspirin 81 mg 01/26/20 09:00 01/27/20 09:07 Aspirin Ec PO 81 mg DAILY [facility] Administration Atorvastatin Calcium 80 mg 01/26/20 21:00 01/27/20 20:12 Lipitor PO 80 mg HS MARY LOU Administration Clopidog
[2020-01-28] MEDS: FUROSEMIDE INJ 40 MG/4 ML VIAL IV PUSH (10:01)
[2020-01-28] MEDS: ASPIRIN 81 MG ENTERIC TABLET PO (10:02)
[2020-01-28] MEDS: hydrALAZINE HCL 25 MG TABLET 50 MG PO ×3 (10:02→17:02)
[2020-01-28] MEDS: CLOPIDOGREL BISULFATE 75 MG TABLET PO (10:03)
[2020-01-28] MEDS: hydroCHLOROthiazide 25 MG TABLET PO (10:04)
[2020-01-28] MEDS: lisinopriL 20 MG TABLET 40 MG PO (10:05)
--- NOTE | 2020-01-28 10:30 | PM.IMPN ---
Progress Note: A&P Assessment and Plan (1) Hypertensive crisis: Code(s): I16.9 - Hypertensive crisis, unspecified Status: Acute Assessment and Plan: Blood pressures 236/93 on admission. Blood pressure initially improved with hydralazine but then rebounded requiring a nicardipine drip. Echo showing diastolic dysfunction grade 1 with EF of 65% and severely enlarged left atrium and moderate concentric LVH. Oral anti-HTN medications have been adjusted and currently on HCTZ, Labetolol, Hydralazine, and Norvasc. Appreciate coo and Nephrology input. Continue to monitor BP. (2) Weakness of right lower extremity: Code(s): R29.898 - Other symptoms and signs involving the musculoskeletal system Status: Acute Assessment and Plan: Patient has right leg weakness with previous evaluation as outpatient concerning for lumbar spinal disease. Lumbar spine MRI December 24 showing severe lumbar spondylosis, mild central canal stenosis at various sites and moderate right neural foraminal stenosis at L3-4. This appears only mildly worse from 2015. MRI of the brain showing no acute process. Right knee x-ray does show osteoarthritis as well which could be contributing to her weakness. Continue PT/OT. Appreciate neurology input (3) Elevated troponin: Code(s): R79.89 - Other specified abnormal findings of blood chemistry Status: Acute Assessment and Plan: Troponin only mildly elevated to 0.044. Most likely related the severe hypertension. No symptoms of cardiac ischemia. Cardiology following. 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 This has been known since 2015, with previous workup negative for pheochromocytoma. Doubtful this is playing a part in her current medical condition. (5) Diabetes mellitus: Code(s): E11.9 - Type 2 diabetes mellitus without complications Status: Acute Assessment and Plan: Patient noted to be hyperglycemic on admission. A1c 8.3. Discussed with patient. Glucose reviewed on 01/28/2020. Glucose reasonably well controlled. Dietitian consult. Continue to monitor on Accu-Cheks with sliding scale protocol. Hypoglycemia protocol available as needed. Plan for metformin at discharge. (6) Dyslipidemia: Code(s): E78.5 - Hyperlipidemia, unspecified Status: Acute Assessment and Plan: LFTs within normal limits. Continue atorvastatin and ezetimibe. (7) Coronary artery disease: Code(s): I25.10 - Atherosclerotic heart disease of [place] coronary artery without angina pectoris Status: Acute Assessment and Plan: Patient with history of CAD status post bare metal stent to the mid LAD in 2014. Continue aspirin, clopidogrel, beta-kayode, and statin. Subjective Date/time seen: 01/28/20 10:30 Interval history: 74yo female with hx of HTN who was sent to the emergency room because elevated blood pressure. She denies any other symptoms such as chest pain, shortness of breath, nausea, vomiting, headache, visual changes. She has been compliant with her medications. She denies any dietary indiscretion. She was admitted to the ICU and started on nicardipine drip. Date of service 01/28/20: Able to wean off nicardipine drip earlier this morning. She agreed to sleep apnea test overnight. She denies CP or SOB. No n/v. Eating okay. Up to the chair. She does not wear O2 at home. Exam Narrative: Exam
--- NOTE | 2020-01-28 11:02 | PM.PNNEP ---
Progress Note: A&P Assessment and Plan (1) Hypertensive crisis: Code(s): I16.9 - Hypertensive crisis, unspecified Status: Acute Assessment and Plan: This patient has severe hypertension. She has underlying essential hypertension for 30+ years. She has significant white coat hypertension. Blood pressures at home seemed to have been pretty well controlled up until a few days ago. OR her bp cuff at home could be wrong, and the white coat hypertension at the MD office is actually here real bp? ( will bring in the bp cuff tomorrow to be compared to the cuff here). She also has an adrenal adenoma which is been there for 5 years and is quite large. She had a CTA which ruled out renal artery stenosis. Hormonal studies are all pending. She is currently on hydralazine 50 3 times a day, hydrochlorothiazide 25 mg daily, amlodipine 10mg daily, lisinopril 40, and labetalol 200 every 8 hours. HR is okay (2) Adrenal mass, left: Code(s): E27.8 - Other specified disorders of adrenal gland Status: Acute Assessment and Plan: This mass is stable in appearance but it is unclear whether it is hormonally active. Hormonal tests are all pending. She can followup in my office if discharged before hormones come back. (3) CAD (coronary artery disease): Qualifiers: Coronary Disease-Associated Artery/Lesion type: [place] artery [place] vs. transplanted heart: [place] heart Associated angina: without angina Qualified Code(s): I25.10 - Atherosclerotic heart disease of [place] coronary artery without angina pectoris Code(s): I25.10 - Atherosclerotic heart disease of [place] coronary artery without angina pectoris Status: Acute Assessment and Plan: No current chest pain. Subjective Date/time seen: 01/28/20 11:02 Interval history: Terese is feeling better today. She is up in a chair. BP is doing much better. she feels fine. off the nicardipine. Review of Systems Cardiovascular: Cardiovascular: Reports no additional cardiovascular complaints Respiratory: Respiratory: Reports no additional respiratory complaints Gastrointestinal: Gastrointestinal: Reports no additional gastrointestinal complaints Genitourinary: Genitourinary: Reports no additional female genitourinary complaints Exam Narrative: Exam Narrative: WDWN in NAD skin no rash head ncat lungs clear to ausc cor reg no rub abd BS+ nontender and soft ext no edema or cyanosis Objective Data Vital Signs Vital Signs: Vital Signs - 24 hr 01/27/20 11:04 01/27/20 11:43 01/27/20 12:00 Temperature Pulse Rate 58 L 57 L 59 L Respiratory Rate 20 Blood Pressure 162/48 H 162/45 H Pulse Oximetry 91 01/27/20 12:02 01/27/20 13:38 01/27/20 14:00 Temperature Pulse Rate 61 57 L 57 L Respiratory Rate 21 H 16 Blood Pressure 170/54 H 145/72 H 137/87 Pulse Oximetry 95 97 01/27/20 14:03 01/27/20 15:55 01/27/20 16:00 Temperature Pulse Rate 57 L 61 57 L Respiratory Rate 17 Blood Pressure 148/45 H 146/40 H Pulse Oximetry 97 01/27/20 17:52 01/27/20 18:00 01/27/20 18:41 Temperature Pulse Rate 57 L 55 L 60 Respiratory Rate 14 Blood Pressure 150/49 H 111/91 H 107/71 Pulse Oximetry 97 01/27/20 20:00 01/27/20 20:08 01/27/20 21:00 Temperature 36.7 C Pulse Rate 61 625 H 62 Respiratory Rate 28 H 20 Blood Pressure 162/59 H 162/59 H 140/54 L Pulse Oximetry 96 98 01/27/20 21:44 01/27/20 22:00 01/27/20 22:28 Temperature Pulse Rate 57 L 54 L 68 Respiratory Rate 20 Blood Pressure 149/50 H 149/50 H Pulse Oximetry 98 01/27/20 23:00 01/28/20 00:00 01/28/20 00:42 Temperature Pulse Rate 57 L 68 65 Respiratory Rate 26 H 28 H Blood Pressure 138/53 L 110/43 L 123/33 L Pulse Oximetry 94 90 01/28/20 00:43 01/28/20 00:52 01/28/20 00:55 Temperature 36.9 C 36.9 C Pulse Rate 60 Respiratory Rate Blood Pressure 123/33 L Pulse Ox
[2020-01-28 12:17] LABS: Glucose Point of Care 143 (65-105)
[2020-01-28 16:32] LABS: Glucose Point of Care 187 (65-105)
[2020-01-28] MEDS: amLODIPine BESYLATE 5 MG TABLET 10 MG PO (17:03)
--- NOTE | 2020-01-28 18:20 | PC.NURSE ---
This patient, Terese Bentley, was received from ICU-6 into 210 on 01/28/20 at 1820. Personal belongings list checked and signed. Patient/family oriented to unit policies and routines
--- NOTE | 2020-01-28 18:27 | WPDNEUROPN ---
Progress Note: A&P Assessment and Plan (1) Lumbar spondylosis: Code(s): M47.816 - Spondylosis without myelopathy or radiculopathy, lumbar region Status: Acute (2) Peripheral neuropathy: Code(s): G62.9 - Polyneuropathy, unspecified Status: Acute (3) Paraparesis: Code(s): G82.20 - Paraplegia, unspecified Status: Acute (4) Diabetes mellitus: Code(s): E11.9 - Type 2 diabetes mellitus without complications Status: Acute (5) Hyperglycemia: Code(s): R73.9 - Hyperglycemia, unspecified Status: Acute (6) Left adrenal mass: Code(s): E27.8 - Other specified disorders of adrenal gland Status: Acute (7) Tobacco abuse: Code(s): Z72.0 - Tobacco use Status: Acute (8) Elevated troponin: Code(s): R79.89 - Other specified abnormal findings of blood chemistry Status: Acute (9) Adrenal mass, left: Code(s): E27.8 - Other specified disorders of adrenal gland Status: Acute (10) Hypertension: Code(s): I10 - Essential (primary) hypertension Status: Acute (11) Coronary artery disease: Code(s): I25.10 - Atherosclerotic heart disease of [place] coronary artery without angina pectoris Status: Acute (12) Hypertensive crisis: Code(s): I16.9 - Hypertensive crisis, unspecified Status: Acute (13) Weakness of right lower extremity: Code(s): R29.898 - Other symptoms and signs involving the musculoskeletal system Status: Acute (14) Anxiety: Code(s): F41.9 - Anxiety disorder, unspecified Status: Acute (15) Osteoarthritis: Qualifiers: Osteoarthritis location: unspecified site Osteoarthritis type: unspecified Qualified Code(s): M19.90 - Unspecified osteoarthritis, unspecified site Code(s): M19.90 - Unspecified osteoarthritis, unspecified site Status: Acute (16) CAD (coronary artery disease): Qualifiers: Coronary Disease-Associated Artery/Lesion type: [place] artery [place] vs. transplanted heart: [place] heart Associated angina: without angina Qualified Code(s): I25.10 - Atherosclerotic heart disease of [place] coronary artery without angina pectoris Code(s): I25.10 - Atherosclerotic heart disease of [place] coronary artery without angina pectoris Status: Acute (17) Dyslipidemia: Code(s): E78.5 - Hyperlipidemia, unspecified Status: Acute (18) Essential (primary) hypertension: Code(s): I10 - Essential (primary) hypertension Status: Acute Additional Plan I have requested the MRI of the cervical spine make sure she does not have a cervical myelopathy and/or cervical spondylosis responsible for her gait disorder with progressive weakness of the lower extremities which however is most likely related to multiple factors including peripheral neuropathy The patient will benefit from aggressive PT and OT and gait training when she gets the MRI of the cervical spine performed Explained to the patient and the patient they will decide whether they are agreeable for the T Review of Systems Review of Systems: All systems reviewed & are unremarkable except as noted in HPI and below Exam Const: General: comfortable and no acute distress HENMT: General nose exam: Normal nares present Mouth: Yes moist mucous membranes Eyes: General: appearance normal, both eyes and all related structures Neck: Neck: supple and no JVD Resp: Effort & Inspection: normal respiratory effort Auscultation: clear to auscultation bilaterally Cardio: Rate: regular rate Rhythm: regular rhythm GI: Auscultation: normal bowel sounds Neuro: Other: she is awake alert and well oriented in time place and person speech language functions are normal cranial exam villalobos normal lower extremity weakness is much more so than the upper extremities with evidence of peripheral neuropathy depressed reflexes and questionable Babinski needing assistan
--- NOTE | 2020-01-28 18:55 | PC.NURSE ---
This patient, Terese Bentley, was transferred to [[id number] ] on 01/28/20 at 1830. Personal belongings sent with patient. Belongings list checked and signed with receiving [ ]. Report given to [MEGHAN Brooks ]. Appropriate documentation sent with patient.
[2020-01-28 20:36] LABS: Glucose Point of Care 201 (65-105)
[2020-01-28] MEDS: EZETIMIBE 10 MG TABLET PO (20:49)
[2020-01-28] MEDS: MELATONIN 5 MG TABLET 20 MG PO (20:49)
[2020-01-28] MEDS: ATORVASTATIN 40 MG TABLET 80 MG PO (20:49)
[2020-01-29] VITALS (13 sets, daily range): BP systolic 138–191; BP diastolic 40–53; PULSE 61–84; RESP 16–18; TEMP 36.6–37.4; O2SAT 96–100
[2020-01-29 05:07] LABS: Albumin Level 3.2 g/dL (3.5-5.1); Blood Urea Nitrogen 15 mg/dL (7-17); Carbon Dioxide 27 mmol/L (22-30); Chloride 101 mmol/L (98-107); Estimated CRCL calculation 53 ml/min; Estimated Glomerular Filt Rate > 60; Glucose 144 mg/dL (65-105); Potassium 3.2 mmol/L (3.4-5.0); Sodium 134 mmol/L (137-145)
[2020-01-29] MEDS: LABETALOL HCL 100 MG TABLET 200 MG PO ×2 (05:22→12:33)
--- NOTE | 2020-01-29 07:06 | PC.NURSE ---
Initial referral for DSMT, MNT initiated.Faxed to [facility] and Dr. Rosas.
[2020-01-29 08:21] LABS: Glucose Point of Care 162 (65-105)
[2020-01-29] MEDS: hydrALAZINE HCL 25 MG TABLET 50 MG PO ×3 (08:34→16:48)
[2020-01-29] MEDS: CLOPIDOGREL BISULFATE 75 MG TABLET PO (08:35)
[2020-01-29] MEDS: lisinopriL 20 MG TABLET 40 MG PO (08:35)
[2020-01-29] MEDS: ASPIRIN 81 MG ENTERIC TABLET PO (08:36)
[2020-01-29] MEDS: hydroCHLOROthiazide 25 MG TABLET PO (08:36)
--- NOTE | 2020-01-29 10:20 | WPDNEUROPN ---
Progress Note: A&P Assessment and Plan (1) Paraparesis: Code(s): G82.20 - Paraplegia, unspecified Status: Acute (2) Lumbar spondylosis: Code(s): M47.816 - Spondylosis without myelopathy or radiculopathy, lumbar region Status: Acute (3) Peripheral neuropathy: Code(s): G62.9 - Polyneuropathy, unspecified Status: Acute (4) Diabetes mellitus: Code(s): E11.9 - Type 2 diabetes mellitus without complications Status: Acute (5) Coronary artery disease: Code(s): I25.10 - Atherosclerotic heart disease of [place] coronary artery without angina pectoris Status: Acute (6) Hyperglycemia: Code(s): R73.9 - Hyperglycemia, unspecified Status: Acute (7) Tobacco abuse: Code(s): Z72.0 - Tobacco use Status: Acute (8) Left adrenal mass: Code(s): E27.8 - Other specified disorders of adrenal gland Status: Acute (9) Adrenal mass, left: Code(s): E27.8 - Other specified disorders of adrenal gland Status: Acute (10) Elevated troponin: Code(s): R79.89 - Other specified abnormal findings of blood chemistry Status: Acute (11) Hypertension: Code(s): I10 - Essential (primary) hypertension Status: Acute (12) Hypertensive crisis: Code(s): I16.9 - Hypertensive crisis, unspecified Status: Acute (13) Weakness of right lower extremity: Code(s): R29.898 - Other symptoms and signs involving the musculoskeletal system Status: Acute (14) Anxiety: Code(s): F41.9 - Anxiety disorder, unspecified Status: Acute (15) Osteoarthritis: Qualifiers: Osteoarthritis location: unspecified site Osteoarthritis type: unspecified Qualified Code(s): M19.90 - Unspecified osteoarthritis, unspecified site Code(s): M19.90 - Unspecified osteoarthritis, unspecified site Status: Acute (16) CAD (coronary artery disease): Qualifiers: Coronary Disease-Associated Artery/Lesion type: [place] artery [place] vs. transplanted heart: [place] heart Associated angina: without angina Qualified Code(s): I25.10 - Atherosclerotic heart disease of [place] coronary artery without angina pectoris Code(s): I25.10 - Atherosclerotic heart disease of [place] coronary artery without angina pectoris Status: Acute (17) Dyslipidemia: Code(s): E78.5 - Hyperlipidemia, unspecified Status: Acute (18) Essential (primary) hypertension: Code(s): I10 - Essential (primary) hypertension Status: Acute Additional Plan R/Ocervical myelopathy Exam Const: General: cooperative, healthy appearing, comfortable and no acute distress Nutritional Appearance: average body habitus Limitations: no limitations HENMT: Head: normal to inspection Face and sinus: normal facial exam Mouth: Yes Normal oral and palatal mucosa present Eyes: General: appearance normal, both eyes and all related structures Neck: Neck: normal visual inspection and no lymphadenopathy Resp: Effort & Inspection: able to speak in complete sentences Cardio: Rate: regular rate Rhythm: regular rhythm GI: Auscultation: normal bowel sounds Skin: General skin exam: no rashes or lesions noted Lesions: no lesions Rashes: no rashes Neuro: General: patient oriented x3 and moves all extremities Cranial nerves: Yes CN's II-XII intact bilaterally Cognition (Neuro): normal cognition Speech: normal speech Motor exam (neuro): Abnormal motor strength present Plantar Reflex Responses: equivocal: bilateral Psych: Appearance: grossly normal Objective Data Vital Signs Vital Signs: Vital Signs - 24 hr 01/28/20 11:00 01/28/20 12:00 01/28/20 14:00 Temperature 36.5 C Pulse Rate 62 59 L 69 Respiratory Rate 16 17 22 H Blood Pressure 143/50 H 154/61 H 144/31 H Pulse Oximetry 96 100 98 01/28/20 16:00 01/28/20 18:58 01/28/20 20:00 Temperature 36.7 C 37.0 C Pulse Rate 70 62 71 Respiratory Rate 1
[2020-01-29 12:07] LABS: Glucose Point of Care 218 (65-105)
[2020-01-29] MEDS: INSULIN ASPART (*BKC) 100 UNITS/ML SUB-Q (12:32)
--- NOTE | 2020-01-29 12:41 | PM.PNCARD ---
Progress Note: A&P Additional Plan Patient with coronary artery disease no recent ischemic problems. Admitted with hypertensive urgency. Blood pressure is much better on the current regimen. Labia Mckayla of the blood pressure may be due to use of hydralazine as part of the regimen. She has however been on hydralazine chronically. No disagreement with transferring her to rehab. We will see her in a p.r.n. fashion on rehab and ensure that follow-up with Dr. Edmonds is arranged in our office Franki Teran MD [facility] Subjective Date/time seen: Date of service: 01/29/20 12:41 Interval history: Follow-up visit in this 74-year-old lady with a history of coronary disease remote stenting of the LAD admitted because of severe hypertension. Patient is asymptomatic this morning. Her blood pressure control is now very good and she is off of nicardipine infusion. Offers no cardiovascular complaints She is now out of the ICU and feeling well. Anticipation is for her to be transferred to TCU for rehab before going home. Blood pressure is much better still somewhat labile but no longer dangerously elevated Exam Const: General: comfortable and no acute distress Other: Pleasant lady laying in her bed eating her lunch no complaints HENMT: Mouth: Yes moist mucous membranes Eyes: Sclera: sclerae normal Pupils: Equal, round and reactive pupils present Neck: Neck: supple and no JVD Thyroid: thyroid normal Resp: Effort & Inspection: normal respiratory effort Auscultation: clear to auscultation bilaterally Cardio: Rate: regular rate Rhythm: regular rhythm GI: Auscultation: normal bowel sounds Skin: General skin exam: normal color Neuro: Cognition (Neuro): normal cognition Objective Data Vital Signs Vital Signs: Vital Signs - 24 hr 01/28/20 14:00 01/28/20 16:00 01/28/20 18:58 Temperature 36.7 C Pulse Rate 69 70 62 Respiratory Rate 22 H 17 Blood Pressure 144/31 H 147/44 H Pulse Oximetry 98 96 01/28/20 20:00 01/28/20 20:50 01/28/20 22:00 Temperature 37.0 C Pulse Rate 71 84 74 Respiratory Rate 20 Blood Pressure 140/40 L Pulse Oximetry 96 01/29/20 00:00 01/29/20 02:00 01/29/20 04:00 Temperature 37.1 C 37.4 C Pulse Rate 73 83 77 Respiratory Rate 18 18 Blood Pressure 139/40 L 191/52 H Pulse Oximetry 97 96 01/29/20 05:22 01/29/20 05:37 01/29/20 07:48 Temperature Pulse Rate 84 74 Respiratory Rate Blood Pressure Pulse Oximetry 97 01/29/20 08:00 01/29/20 10:00 01/29/20 12:00 Temperature 36.7 C 36.6 C Pulse Rate 68 68 62 Respiratory Rate 16 16 Blood Pressure 138/51 L 159/53 H Pulse Oximetry 97 100 01/29/20 12:33 Temperature Pulse Rate 71 Respiratory Rate Blood Pressure Pulse Oximetry Intake/Output Intake/Output: Intake & Output 01/26/20 01/27/20 01/28/20 01/29/20 23:59 23:59 23:59 23:59 Intake Total 2390 2880 1357 220 Output Total 600 1725 3325 800 Balance 1790 1155 -1968 -580 Meds/Results Medications: Active Medications Generic Name Dose Route Start Last Admin Trade Name Freq PRN Reason Stop Dose Admin Acetaminophen 650 mg 01/25/20 12:47 Tylenol Tablet PO Q4H PRN Mild Pain (1-3) or Fever Amlodipine Besylate 10 mg 01/28/20 18:00 01/28/20 17:03 Norvasc PO 10 mg DAILY@1800 MARY LOU Administration Aspirin 81 mg 01/26/20 09:00 01/29/20 08:36 Aspirin Ec PO 81 mg DAILY MARY LOU Administration Atorvastatin Calcium 80 mg 01/26/20 21:00 01/28/20 20:49 Lipitor PO 80 mg HS MARY LOU Administration Clopidogrel Bisulfate 75 mg 01/26/20 09:00 01/29/20 08:35 Plavix PO 75 mg DAILY MARY LOU Administration Dextrose 12.5 gm 01/26/20 09:05 Dextrose 50% Syringe IV PUSH PRN PRN Hypoglycemia Protocol Ezetimibe 10 mg 01/25/20 21:00 01/28/20 20:49 Zetia PO 10 mg HS MARY LOU Administration Glucagon 1 mg 01/26/20 09:05 Glucagon For Inj IM PRN PRN Hypoglycemia Prot
--- NOTE | 2020-01-29 14:15 | PM.PNNEP ---
Progress Note: A&P Assessment and Plan (1) Hypertensive crisis: Code(s): I16.9 - Hypertensive crisis, unspecified Status: Acute Assessment and Plan: severe hypertension as noted by admission BP has underlying essential hypertension for 30+ year seems only recently that her BP has risen to extremes CT angio of abd/pelvis negative for renal artery stenosis hormonal studies are still pending BP seems to be doing better with current regimen of hydralazine + HCTZ + amlodipine + lisinopril + labetalol follow trend of hemodynamics (2) Adrenal mass, left: Code(s): E27.8 - Other specified disorders of adrenal gland Status: Acute Assessment and Plan: mass is stable in appearance but it is unclear whether it is hormonally active hormonal testing is pending Will continue to follow -- not opposed to discharge to [facility]. Subjective Date/time seen: 01/29/20 14:15 Appears to be doing reasonably well at this time; no distress noted and aware of plans for transfer to [facility]; BP is doing better - elevated in AM but comes down over the course of the day. Exam Narrative: Exam Narrative: General: WD/WN female in NAD Heart: normal S1 and S2; no rub Lungs: clear to auscultation Abdomen: soft, nontender, nondistended, positive bowel sounds Extremities: no cyanosis or clubbing; no edema Skin: warm and dry Objective Data Vital Signs Vital Signs: Vital Signs Temp Pulse Resp BP Pulse Ox 01/29/20 16:00 36.6 C 73 18 148/40 H 98 01/29/20 15:53 76 16 100 01/29/20 14:00 75 01/29/20 12:33 71 01/29/20 12:00 36.6 C 62 16 159/53 H 100 01/29/20 10:00 68 01/29/20 08:00 36.7 C 68 16 138/51 L 97 01/29/20 07:48 97 01/29/20 05:37 74 01/29/20 05:22 84 01/29/20 04:00 37.4 C 77 18 191/52 H 96 01/29/20 02:00 83 01/29/20 00:00 37.1 C 73 18 139/40 L 97 01/28/20 22:00 74 01/28/20 20:50 84 01/28/20 20:00 37.0 C 71 20 140/40 L 96 01/28/20 18:58 62 Intake/Output Intake/Output: Intake & Output 01/26/20 01/27/20 01/28/20 01/29/20 23:59 23:59 23:59 23:59 Intake Total 2390 2880 1357 420 Output Total 600 1725 3325 800 Balance 1790 1155 -1968 -437 Meds/Results Medications: Active Medications Generic Name Dose Route Start Last Admin Trade Name Freq PRN Reason Stop Dose Admin Acetaminophen 650 mg 01/25/20 12:47 Tylenol Tablet PO Q4H PRN Mild Pain (1-3) or Fever Amlodipine Besylate 10 mg 01/28/20 18:00 01/29/20 17:02 Norvasc PO 10 mg DAILY@1800 MARY LOU Administration Aspirin 81 mg 01/26/20 09:00 01/29/20 08:36 Aspirin Ec PO 81 mg DAILY MARY LOU Administration Atorvastatin Calcium 80 mg 01/26/20 21:00 01/28/20 20:49 Lipitor PO 80 mg HS MARY LOU Administration Clopidogrel Bisulfate 75 mg 01/26/20 09:00 01/29/20 08:35 Plavix PO 75 mg DAILY MARY LOU Administration Dextrose 12.5 gm 01/26/20 09:05 Dextrose 50% Syringe IV PUSH PRN PRN Hypoglycemia Protocol Ezetimibe 10 mg 01/25/20 21:00 01/28/20 20:49 Zetia PO 10 mg HS MARY LOU Administration Glucagon 1 mg 01/26/20 09:05 Glucagon For Inj IM PRN PRN Hypoglycemia Protocol Glucose 15 gm 01/26/20 09:05 Glutose 15 PO PRN PRN Hypoglycemia Protocol Hydralazine HCl 50 mg 01/27/20 17:00 01/29/20 16:48 Apresoline Tablet PO 50 mg TIDWM MARY LOU Administration Hydralazine HCl 20 mg 01/28/20 07:52 Apresoline Hcl Inj IV PUSH Q4H PRN Hypertension Hydrochlorothiazide 25 mg 01/27/20 09:00 01/29/20 08:36 Hydrochlorothiazide PO 25 mg DAILY MARY LOU Administration Dextrose 1,000 mls @ 100 mls/hr 01/26/20 09:05 Dextrose 5% 1,000 Ml IVPB PRN PRN Hypoglycemia Protocol Insulin Aspart 3 - 6 units 01/26/20 12:00 01/29/20 17:01 Novolog SUB-Q Not Given TIDWM MARY LOU Protocol Labetalol HCl 200 mg
--- NOTE | 2020-01-29 14:38 | PM.DS ---
DS: Admitting Diagnosis Admitting Diagnosis Admitting Diagnosis: Hypertensive crisis, unspecified DS: Discharge Diagnosis Discharge Diagnosis (1) Hypertensive crisis: Code(s): I16.9 - Hypertensive crisis, unspecified Status: Acute Assessment and Plan: Blood pressures 236/93 on admission. Blood pressure initially improved with hydralazine but then rebounded requiring a nicardipine drip. Echo showing diastolic dysfunction grade 1 with EF of 65% and severely enlarged left atrium and moderate concentric LVH. Oral anti-HTN medications were started and adjusted and currently on lisinopril, HCTZ, Labetolol, Hydralazine, and Norvasc. Appreciate director video and Nephrology input. (2) Weakness of right lower extremity: Code(s): R29.898 - Other symptoms and signs involving the musculoskeletal system Status: Acute Assessment and Plan: Patient has right leg weakness with previous evaluation as outpatient concerning for lumbar spinal disease. Lumbar spine MRI December 24 showing severe lumbar spondylosis, mild central canal stenosis at various sites and moderate right neural foraminal stenosis at L3-4. This appears only mildly worse from 2014. MRI of the brain here showing no acute process. Right knee x-ray does show osteoarthritis as well which could be contributing to her weakness. PT/OT started (3) Elevated troponin: Code(s): R79.89 - Other specified abnormal findings of blood chemistry Status: Acute Assessment and Plan: Troponin only mildly elevated to 0.044. Most likely related the severe hypertension. No symptoms of cardiac ischemia. 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 This has been known since 2015, with previous workup negative for pheochromocytoma. Hormonal testing performed but doubtful this is playing a part in her current medical condition. (5) Diabetes mellitus: Code(s): E11.9 - Type 2 diabetes mellitus without complications Status: Acute Assessment and Plan: Patient noted to be hyperglycemic on admission. A1c 8.3. Discussed with patient. Glucose monitored closely. Glucose reasonably well controlled. Dietitian consult. Continue to monitor on Accu-Cheks with sliding scale protocol. Hypoglycemia protocol available as needed. Metformin to start at discharge. (6) Dyslipidemia: Code(s): E78.5 - Hyperlipidemia, unspecified Status: Acute Assessment and Plan: LFTs within normal limits. We contiued atorvastatin and ezetimibe. (7) Coronary artery disease: Code(s): I25.10 - Atherosclerotic heart disease of [place] coronary artery without angina pectoris Status: Acute Assessment and Plan: Patient with history of CAD status post bare metal stent to the mid LAD in 2014. We continued aspirin, clopidogrel, beta-kayode, and statin. DS: Summary Hospital Course Reason for hospitalization: 74yo female sent in for elevated BP. Please see H&P for details. Hospital Course: As above Time Spent with Patient Time attestation: Total time spent providing and/or coordinating discharge services:36 minutes Time spent: Greater than 30 minutes Specific discharge activities: Discussed with other providers. Providing care to the patient. preparing the medical record Exam Narrative: Exam Narrative: Afebrile 159/53 75 16 Gen: NARD Chest: CTA bilaterally, nml RR CV: RRR. S1-S2. Telemetry showing no signif
--- NOTE | 2020-01-29 14:56 | PCOTNOTE ---
Attempted to see patient for skilled OT this PM, however, when approached patient was on the phone. Patient verbalized she is being discharged to [facility] later today and declined therapy. Patient not seen this date for OT.
[2020-01-29 16:18] LABS: Glucose Point of Care 161 (65-105)
[2020-01-29] MEDS: POTASSIUM CHLORIDE 20 MEQ TABLET PO (16:47)
[2020-01-29] MEDS: metFORMIN HCL 500 MG TABLET PO (16:51)
[2020-01-29] MEDS: amLODIPine BESYLATE 5 MG TABLET 10 MG PO (17:02)
[2020-01-29] MEDS: LORazepam 0.5 MG TABLET PO (17:21)
[2020-02-02 14:07] LABS: Calculated Total (E+NE) 115 mcg/24 h (26-121); Dopamine, 24hr Urine 144 mcg/24 h (52-480); Epinephrine, 24hr Urine 6 mcg/24 h (2-24); Norepinephrine, 24hr Urine 109 mcg/24 h (15-100)
[2020-02-02 14:15] LABS: Renin 0.05 ng/mL/h (0.25-5.82)
[2020-02-05 10:00] LABS: Normetanephrine, Urine 727 mcg/24 h (122-676)
--- NOTE | 2020-02-05 15:18 | PC.NURSE ---
Free cortisol in urine- shows not 24 hour urine volume. 24 hour Metaneph- test was not preformed Renin is low at 0.05 Mc- 1 Catecho 24 hour- 115. Dr. Holland and Dr. Rosas aware of above findings.
--- NOTE | 2020-02-09 10:55 | PC.NURSE ---
Not enough urine to run [address] Holland aware.
== END 2020-01-29 17:38 | DRG 282 ==
LOC: ANHED 12:54 → ANHICU 13:40 → ANHIMU 01-28 18:30
PROVIDERS: Internal Medicine; Internal Medicine Nephrology; Physician Assistant; Admitting Provider Internal Medicine; Emergency Provider Emergency Medicine; PCP Family Medicine; Visit Provider Internal Medicine
DX: I16.9 Hypertensive crisis, unspecified (principal); I21.A1 Myocardial infarction type 2; R29.898 Other symptoms and signs involving the musculoskeletal system; R79.89 Other specified abnormal findings of blood chemistry; E27.8 Other specified disorders of adrenal gland; E11.65 Type 2 diabetes mellitus with hyperglycemia; E11.42 Type 2 diabetes mellitus with diabetic polyneuropathy; E78.5 Hyperlipidemia, unspecified; I25.10 Atherosclerotic heart disease of native coronary artery without angina pectoris; F41.9 Anxiety disorder, unspecified; M19.90 Unspecified osteoarthritis, unspecified site; M47.816 Spondylosis without myelopathy or radiculopathy, lumbar region; Z96.642 Presence of left artificial hip joint; Z95.5 Presence of coronary angioplasty implant and graft; Z87.891 Personal history of nicotine dependence; Z85.828 Personal history of other malignant neoplasm of skin; Z79.82 Long term (current) use of aspirin
CPT/HCPCS: 36415; 51701; 70553; 71045; 73562; 74174; 74176; 80048; 80053; 80061; 80069; 81001; 82088; 82384; 82530; 83036; 83735; 83835; 83970; 84100; 84244; 84443; 84484; 84550; 85025; 85027; 85610; 85730; 93005; 93306; 94762; 96365; 96366; 96368; 96375; 96376; 97110; 97116; 97161; 97165; 97530; 97535; 99285; A9270; A9577; G0378; J0360; J1815; J1940; J3475; Q9967

== ENCOUNTER 2020-01-29 18:02 | IRF | payer MEDICARE, SELFPAY ==
[2020-01-29 18:05] VITALS: BP 143/45; PULSE 72; RESP 18; TEMP 36.8; O2SAT 97; BMI 29.0
--- NOTE | 2020-01-29 18:26 | ADMGEN ---
This patient, Terese Bentley, was admitted to [facility] Room 224-02. Patient/family oriented to hospital policies and general routines including ID bracelet, bed and alarms, visiting hours, pain management, procedures, bathroom and other care routines, personal items, smoking policy, room service/diet, and visiting hours. Valuables list has been completed. Information on how to activate the Rapid Response Team has been discussed. Patient/Family are encouraged to report perceived risks to care and to ask questions if they do not understand what they are told or what they should do.
[2020-01-29] MEDS: ATORVASTATIN 40 MG TABLET 80 MG PO (20:12)
[2020-01-29 20:13] VITALS: PULSE 80
[2020-01-29] MEDS: EZETIMIBE 10 MG TABLET PO (20:13)
[2020-01-29] MEDS: LABETALOL HCL 100 MG TABLET 200 MG PO (20:13)
[2020-01-29 20:18] VITALS: O2SAT 94
[2020-01-29] MEDS: MELATONIN 5 MG TABLET 20 MG PO (21:32)
[2020-01-29 22:00] VITALS: BP 177/34; PULSE 81; RESP 17; TEMP 37.2; O2SAT 96
[2020-01-30 05:15] LABS: Basophils Absolute Auto 0.1 K/mm3 (0.0-0.1); Basophils Percent Auto 0.6 % (0.2-1.2); Eosinophils Absolute Auto 0.1 K/mm3 (0-0.3); Eosinophils Percent Auto 1.6 % (0-4.4); Hematocrit 34.8 % (37.0-47.0); Hemoglobin 11.5 g/dL (12.0-15.0); Immature Granulocyte Absolute 0.05 K/mm3 (0.00-0.031); Immature Granulocyte Percent A 0.6 % (0-0.5); Lymphocytes Absolute Auto 0.87 K/mm3 (0.9-3.2); Lymphocytes Percent Auto 9.8 % (18.3-44.2); Mean Corpuscular Volume 90.9 fl (80-100); Mean Platelet Volume 11.2 fl (7.4-10.4); Monocytes Percent Auto 10.9 % (2.6-8.5); Neutrophils Absolute Auto 6.8 K/mm3 (1.3-6.7); Neutrophils Percent Auto 76.5 % (45.5-73.1); Platelet Count Result 206 k/mm3 (150-375); Red Blood Count 3.83 M/mm3 (4.2-5.4); Red Cell Distribution Width 13.5 % (11.5-14.5); White Blood Count 8.9 K/mm3 (4.5-10.0)
[2020-01-30 05:26] LABS: Blood Urea Nitrogen 15 mg/dL (7-17); Calcium 8.7 mg/dL (8.4-10.2); Carbon Dioxide 28 mmol/L (22-30); Chloride 102 mmol/L (98-107); Estimated CRCL calculation 53 ml/min; Estimated Glomerular Filt Rate > 60; Glucose 137 mg/dL (65-105); Potassium 3.9 mmol/L (3.4-5.0); Sodium 135 mmol/L (137-145)
[2020-01-30 05:49] VITALS: PULSE 88
[2020-01-30] MEDS: LABETALOL HCL 100 MG TABLET 200 MG PO ×3 (05:49→20:30)
[2020-01-30 06:00] VITALS: BP 161/37; PULSE 78; RESP 18; TEMP 37.1; O2SAT 98
[2020-01-30 06:52] LABS: Glucose Point of Care 141 (65-105)
[2020-01-30] MEDS: hydrALAZINE HCL 50 MG TABLET PO ×3 (08:03→17:10)
[2020-01-30] MEDS: hydroCHLOROthiazide 25 MG TABLET PO (08:04)
[2020-01-30] MEDS: lisinopriL 20 MG TABLET 40 MG PO (08:04)
[2020-01-30] MEDS: CLOPIDOGREL BISULFATE 75 MG TABLET PO (08:04)
[2020-01-30] MEDS: ASPIRIN 81 MG ENTERIC TABLET PO (08:04)
[2020-01-30] MEDS: metFORMIN HCL 500 MG TABLET PO ×2 (08:04→17:11)
--- NOTE | 2020-01-30 11:34 | WPDREHABHP ---
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 They had [no] falls in the past year. They had [no] falls with injury in the past year. the patient is a 74-year-old woman with a history of difficult to control hypertension, dyslipidemia, coronary artery disease, anxiety in, and left adrenal mass. She presented to the emergency department on the morning of January 25, 2020 via private vehicle from home with complaints of elevated blood pressure. The patient stays a little over a month ago her knees were giving out however I found out she has had problem with walking for past couple of months and has been evaluated by Dr. Dorman with multiple MRIs performed of the cervical thoracic and lumbar spine. The patient has progressively become very weak current debilitated. She has gone from ambulating unassisted to using a cane to a wheelchair. A worker or ordered by the primary care physician provided included lumbar spine MRI which revealed severe lumbar spine and stenosis with slight worsening when compared to the imaging of 2014. The patient was referred to the Neurology and they did the cervical and thoracic spine MRI and cervical spine MRI does reveal moderate canal stenosis C5 and C6 the patient was given gabapentin which offered no help and more recently she was given carbamazepine which is also provided her with no refill relief the patient was found to have a complex 6 centimeter mass in the left adrenal or other left suprarenal region noted to be is 6.9 centimeter [place] lipoma on abdominal CT later. This a renal mass was seen on imaging in 2014 and a workup for pheochromocytoma was reportedly negative at the time. A home health nurse so her patient on January 25, 2020 to initiate home health. During the nursing was seen the patient was noted to have a blood pressure of 270/100. The patient was directed to the emergency department. She received total of 40 milligram hydralazine in the emergency department with improvement and blood pressure later in the 170s and 90s. It was also noted that her blood pressure was high when she saw Dr. crawford her primary care physician a couple of weeks ago and she was instructed to keep a blood pressure log. Blood pressure at home range in the 120s and 30s systolic over the 60s and 70s. Previously she reported exaggerated hypertension with stressful situations and she reported being quite stressed recently due to pain in at the right knee with the inability to ambulate. The patient usually described to be alert and oriented she remained alert oriented during the course of hospitalization the pain in the knees described as sharp shooting and aching in nature worse with movement. She also frustrated that she has yet to start physical therapy. With further questioning it sounds as though she has been experiencing weakness and paresthesias in the right leg mainly in the right thigh for the last month or more since her knee gave out. Additionally she has important or intermittent paresthesias of the fingers in the right hand and this also occurred within the past 4 to 6 weeks. The patient has had no symptoms regarding her blood high blood pressure and she specifically denies headache dizziness indy
[2020-01-30] MEDS: ENOXAPARIN 40 MG/0.4 ML SYRINGE SUB-Q (13:27)
[2020-01-30 13:28] VITALS: PULSE 78
[2020-01-30 13:31] VITALS: BMI 29.0
[2020-01-30 14:00] VITALS: BP 149/40; PULSE 72; PULSE 76; RESP 18; TEMP 36.8; O2SAT 100
--- NOTE | 2020-01-30 14:16 | PCNSR ---
On 01/30/20, the student, Sherif Luevano, provided care and completed [facility] documentation on this patient. I have reviewed the student's documentation and agree with the findings.
--- NOTE | 2020-01-30 16:36 | RPD ---
INDIVIDUALIZED PLAN OF CARE FOR Terese Bentley Brief Synthesis of Pre-Admission Screen, Post-Admission Evaluation and Therapy Evaluations: The patient presents to rehab with severe lumbar spondylosis. Comorbidities include hypertension (difficult to control), dyslipidemia, coronary artery disease, anxiety, left adrenal mass, osteoarthritis, paraparesis, hyperglycemia, lumbar spondylosis, peripheral neuropathy, diabetes mellitus, sleep apnea, and small pleural effusions.The patient?s needs will be best met in an intensive program vs. at a lower level of care. The patient requires physician services for medical oversight, management of comorbidities, and pain management. The patient requires nursing services for anticoagulation therapy, diabetes training, DVT prophylactics, infection protection, medication management and education, and pressure relief. Deficits include:ADLs, Balance, Endurance, Family Training/Education, Mobility, Pain Management, ROM, Safety, Strength, and Transfers. Eeo Officer/Case Management for: Discharge Planning and Patient/Family Counseling Physical Therapy: 5 days per week for 90 minutes. Treatments may include: Therapeutic Exercise, Gait Training, Neuromuscular Re-education, Transfer Training, Community Reintegration, Bed Mobility, Patient/Family Education, Wheelchair Mobility Group Therapy/Concurrent Therapy Rationales: -Improve attention span during functional activities in a distracted environment. -Enhance problem solving and/or adequate judgment skills during functional activities in a distracted environment. -Promote increased safety awareness in a distracted environment to reduce fall risk with functional tasks, transfers, and ambulation to allow a more safe, self-sufficient return to the home environment. -Improve dynamic balance skills to promote safety and independence with functional activities in a distracted environment for maximum gain. Occupational Therapy: 5 days per week for 90 minutes. Treatments may include: Therapeutic Exercise, Therapeutic Activity, Cognitive Training, Self-Care Transfer Training, Community Reintegration, Home Management, Patient/Family Education, Wheelchair Mobility Training, Energy Conservation Training Group Therapy/Concurrent Therapy Rationales: -Allow therapist to observe and teach generalization and carry-over of skills learned in individual therapy. -Enhance problem solving and sequencing skills during therapeutic activities in a distracted environment. -Promote increased safety awareness in a realistic setting to reduce fall risk with functional tasks due to visual and verbal distractions. -Increase functional level with ADLs, ADL transfers and use of adaptive equipment through therapeutic activities with others while promoting safety to allow a more safe, self-sufficient return home. Medical Prognosis: Good Anticipated Length of Stay: 10 days Rehab Goals: Eating Goal: 06-Independent Oral Hygiene Goal: 06-Independent Toileting Hygiene Goal: 06-Independent Shower/Bathe Self Goal: 06-Independent Upper Body Dressing Goal: 06-Independent Lower Body Dressing Goal: 06-Independent Putting On/Taking Off Footwear Goal: 06-Independent Rolling Left and Right Goal: 06-Independent Sit to Lying Goal: 06-Independent Lying to Sitting on Side of Bed Goal: 06-Independent Sit to Stand Goal: 06-Independent Chair/Vsr-wl-Rertb Transfer Goal: 06-Independent Toilet Transfer Goal: 06-Independent Car Transfer Goal: 06-Independent Walk 10' Goal: 06-Independent Walk 50' with Two Turns Goal: 06-Independent Walk 150' Goal: 06-Independent Walk 10' on Uneven Surface Goal: 06-Independent 1 Step (Curb) Goal: 06-Independent 4 Steps Goal: 06-Independent 12 Steps Goal Score: 03-Partial/Moderate Assistance Picking Up Object Goal: 06-Independent Wheel 50' with Two Turns Score: 09-Not Applicable Wheel 150' Goal: 09-Not Applicable Anticipated discharge destination: Home
[2020-01-30 16:59] LABS: Glucose Point of Care 128 (65-105)
[2020-01-30] MEDS: amLODIPine BESYLATE 5 MG TABLET 10 MG PO (17:11)
--- NOTE | 2020-01-30 18:08 | ADMGEN ---
This patient, Terese Bentley, was admitted to [facility] Room 224-02. Patient/family oriented to hospital policies and general routines including ID bracelet, bed and alarms, visiting hours, pain management, procedures, bathroom and other care routines, personal items, smoking policy, room service/diet, and visiting hours. Valuables list has been completed. Information on how to activate the Rapid Response Team has been discussed. Patient/Family are encouraged to report perceived risks to care and to ask questions if they do not understand what they are told or what they should do.
[2020-01-30 20:30] VITALS: PULSE 72
[2020-01-30] MEDS: EZETIMIBE 10 MG TABLET PO (20:30)
[2020-01-30] MEDS: ATORVASTATIN 40 MG TABLET 80 MG PO (20:30)
[2020-01-30] MEDS: MELATONIN 5 MG TABLET 20 MG PO (20:33)
[2020-01-30] MEDS: LORazepam 0.5 MG TABLET PO (20:33)
[2020-01-30] MEDS: OXYMETAZOLINE HCL 0.05% NAS 15 ML BTL (*BKC) 1 SPRAY NASAL (21:29)
[2020-01-30 21:57] VITALS: BP 147/34; PULSE 86; RESP 19; TEMP 37.1; O2SAT 96
[2020-01-31] VITALS (8 sets, daily range): BP systolic 110–143; BP diastolic 39–45; PULSE 70–82; RESP 18; TEMP 36.6–36.9; O2SAT 96–99
[2020-01-31] MEDS: LABETALOL HCL 100 MG TABLET 200 MG PO ×3 (06:20→21:06)
[2020-01-31 06:58] LABS: Glucose Point of Care 150 (65-105)
[2020-01-31] MEDS: metFORMIN HCL 500 MG TABLET PO ×2 (09:12→16:26)
[2020-01-31] MEDS: ASPIRIN 81 MG ENTERIC TABLET PO (09:12)
[2020-01-31] MEDS: hydrALAZINE HCL 50 MG TABLET PO ×3 (09:12→16:26)
[2020-01-31] MEDS: CLOPIDOGREL BISULFATE 75 MG TABLET PO (09:12)
[2020-01-31] MEDS: hydroCHLOROthiazide 25 MG TABLET PO (09:13)
[2020-01-31] MEDS: lisinopriL 20 MG TABLET 40 MG PO (09:13)
[2020-01-31] MEDS: ENOXAPARIN 40 MG/0.4 ML SYRINGE SUB-Q (09:13)
--- NOTE | 2020-01-31 15:48 | WPDNEURORHBP ---
Subjective Date/time seen: 01/31/20 15:48 Interval history: this patient 74-year-old is here because of the gait disorder associated with the cervical spondylosis and the lumbar stenosis she is doing fairly well walking with the help of the physical therapist she denies any headache nausea vomiting chest pain shortness of breath fever chills or sore throat Review of Systems Review of Systems: All systems reviewed & are unremarkable except as noted in HPI and below Functional Status Ambulation Ability Ability to Ambulate 10 Feet: Contact Guard Ability to Ambulate 50 Feet With 2 Turns: Contact Guard Ability to Ambulate 150 Feet: Contact Guard Ambulation Assistive Devices: Walker, Wheeled Transfers Ability Ability to Transfer In/Out of Chair: Contact Guard Exam Const: General: comfortable and no acute distress HENMT: General nose exam: Normal nares present Mouth: Yes moist mucous membranes Eyes: General: appearance normal, both eyes and all related structures Neck: Neck: supple and no JVD Resp: Effort & Inspection: normal respiratory effort Auscultation: clear to auscultation bilaterally Cardio: Rate: regular rate Rhythm: regular rhythm GI: GI Palp: Yes Soft to palpation Auscultation: normal bowel sounds : External Female Exam: normal external appearance Skin: General skin exam: normal color and no rashes or lesions noted Neuro: Other: patient is awake alert well oriented in time place and person has normal speech and dysfunction normal cranial examination however does have evidence of peripheral neuropathy and gait disorder for which she needs the extensive PT OT and gait training Extrem: General: normal to inspection Psych: Mental Status: mental status grossly normal Objective Data Vital Signs Vital Signs: Vital Signs - 24 hr 01/30/20 20:30 01/30/20 21:57 01/31/20 05:56 Temperature 37.1 C 36.7 C Pulse Rate 72 86 71 Respiratory Rate 19 18 Blood Pressure 147/34 H 143/41 H Pulse Oximetry 96 99 01/31/20 06:20 01/31/20 08:30 01/31/20 10:42 Temperature Pulse Rate 72 70 Respiratory Rate Blood Pressure Pulse Oximetry 98 98 01/31/20 14:00 01/31/20 14:25 Temperature 36.6 C Pulse Rate 82 70 Respiratory Rate 18 Blood Pressure 122/45 L Pulse Oximetry 98 Intake/Output Intake/Output: Intake & Output 01/28/20 01/29/20 01/30/20 01/31/20 23:59 23:59 23:59 23:59 Intake Total 720 480 Balance 720 480 Meds/Results Medications: Active Medications Generic Name Dose Route Start Last Admin Trade Name [place] PRN Reason Stop Dose Admin Acetaminophen 650 mg 01/29/20 18:51 Tylenol Tablet PO Q4H PRN Mild Pain (1-3) Or Fever Amlodipine Besylate 10 mg 01/30/20 18:00 01/30/20 17:11 Norvasc PO 10 mg DAILY@1800 MARY LOU Administration Aspirin 81 mg 01/30/20 09:00 01/31/20 09:12 Aspirin Ec PO 81 mg DAILY MARY LOU Administration Atorvastatin Calcium 80 mg 01/29/20 21:00 01/30/20 20:30 Lipitor PO 80 mg HS MARY LOU Administration Carbamazepine 100 mg 01/29/20 22:00 01/31/20 14:25 Tegretol Chew PO 100 mg Q8HR MARY LOU Administration Clopidogrel Bisulfate 75 mg 01/30/20 09:00 01/31/20 09:12 Plavix PO 75 mg DAILY MARY LOU Administration Ezetimibe 10 mg 01/29/20 21:00 01/30/20 20:30 Zetia PO 10 mg HS MARY LOU Administration Enoxaparin Sodium 40 mg 01/31/20 09:00 01/31/20 09:13 Lovenox SUB-Q 40 mg DAILY MARY LOU Administration Hydralazine HCl 50 mg 01/30/20 08:00 01/31/20 11:38 Apresoline Tablet PO 50 mg TIDWM MARY LOU Administration Hydrochlorothiazide 25 mg 01/30/20 09:00 01/31/20 09:13 Hydrochlorothiazide PO 25 mg DAILY MARY LOU Administration Labetalol HCl 200 mg 01/29/20 22:00 01/31/20 14:25 Trandate PO 200 mg Q8HR MARY LOU Administration Lisinopril 40 mg 01/30/20 09:00 01/31/20 09:13 Prinivil PO 40 mg DAILY MARY LOU Administration Lorazepam 0.5 mg 01/29/20 18:51 01/30/20
[2020-01-31] MEDS: amLODIPine BESYLATE 5 MG TABLET 10 MG PO (16:26)
[2020-01-31 16:39] LABS: Glucose Point of Care 137 (65-105)
[2020-01-31] MEDS: ATORVASTATIN 40 MG TABLET 80 MG PO (21:06)
[2020-01-31] MEDS: EZETIMIBE 10 MG TABLET PO (21:07)
[2020-01-31] MEDS: MELATONIN 5 MG TABLET 20 MG PO (21:10)
[2020-01-31] MEDS: LORazepam 0.5 MG TABLET PO (21:10)
[2020-02-01] VITALS (7 sets, daily range): BP systolic 129–152; BP diastolic 47–48; PULSE 60–72; RESP 18–20; TEMP 36.3–36.8; O2SAT 94–99
[2020-02-01] MEDS: LABETALOL HCL 100 MG TABLET 200 MG PO ×3 (05:11→20:47)
[2020-02-01 07:03] LABS: Glucose Point of Care 167 (65-105)
[2020-02-01] MEDS: ENOXAPARIN 40 MG/0.4 ML SYRINGE SUB-Q (09:10)
[2020-02-01] MEDS: hydrALAZINE HCL 50 MG TABLET PO ×3 (09:10→17:29)
[2020-02-01] MEDS: ASPIRIN 81 MG ENTERIC TABLET PO (09:10)
[2020-02-01] MEDS: lisinopriL 20 MG TABLET 40 MG PO (09:10)
[2020-02-01] MEDS: CLOPIDOGREL BISULFATE 75 MG TABLET PO (09:10)
[2020-02-01] MEDS: hydroCHLOROthiazide 25 MG TABLET PO (09:10)
[2020-02-01] MEDS: metFORMIN HCL 500 MG TABLET PO ×2 (09:10→17:29)
--- NOTE | 2020-02-01 14:40 | WPDNEURORHBP ---
Subjective Date/time seen: 02/01/20 14:40 Interval history: this 74-year-old is here because of the multiple levels spinal abnormalities responsible for the gait disorder superimposed on the peripheral neuropathy she is walking better and making progress and is helping her and doing the family training to denies any headache nausea vomiting chest pain shortness of breath fever chills sore throat Review of Systems Review of Systems: All systems reviewed & are unremarkable except as noted in HPI and below Functional Status Ambulation Ability Ability to Ambulate 10 Feet: Standby Assistance Ability to Ambulate 50 Feet With 2 Turns: Standby Assistance Ability to Ambulate 150 Feet: Standby Assistance Ambulation Assistive Devices: Walker, Wheeled Transfers Ability Ability to Transfer In/Out of Chair: Standby Assistance Exam Const: General: comfortable and no acute distress HENMT: General nose exam: Normal nares present Mouth: Yes moist mucous membranes Eyes: General: appearance normal, both eyes and all related structures Neck: Neck: supple and no JVD Resp: Effort & Inspection: normal respiratory effort Auscultation: clear to auscultation bilaterally Cardio: Rate: regular rate Rhythm: regular rhythm GI: GI Palp: Yes Soft to palpation Auscultation: normal bowel sounds Skin: General skin exam: normal color and no rashes or lesions noted Neuro: Other: patient's gait and strength is improving she at times get little upset and angry however she is making progress and thus a good sign no lateralizing weakness however is noted Extrem: General: normal to inspection Psych: Mental Status: mental status grossly normal Objective Data Vital Signs Vital Signs: Vital Signs - 24 hr 02/01/20 20:47 02/01/20 21:48 02/02/20 05:32 Temperature 36.5 C Pulse Rate 70 71 70 Respiratory Rate 18 Blood Pressure 152/48 H Pulse Oximetry 96 02/02/20 06:00 02/02/20 14:00 02/02/20 14:25 Temperature 36.4 C L 36.6 C Pulse Rate 64 71 78 Respiratory Rate 16 18 Blood Pressure 185/58 H 123/45 L Pulse Oximetry 97 98 Intake/Output Intake/Output: Intake & Output 01/30/20 01/31/20 02/01/20 02/02/20 23:59 23:59 23:59 23:59 Intake Total 720 720 840 360 Balance 720 720 840 360 Meds/Results Medications: Active Medications Generic Name Dose Route Start Last Admin Trade Name Freq PRN Reason Stop Dose Admin Acetaminophen 650 mg 01/29/20 18:51 Tylenol Tablet PO Q4H PRN Mild Pain (1-3) Or Fever Amlodipine Besylate 10 mg 01/30/20 18:00 02/01/20 17:29 Norvasc PO 10 mg DAILY@1800 MARY LOU Administration Aspirin 81 mg 01/30/20 09:00 02/02/20 08:30 Aspirin Ec PO 81 mg DAILY MARY LOU Administration Atorvastatin Calcium 80 mg 01/29/20 21:00 02/01/20 20:46 Lipitor PO 80 mg HS MARY LOU Administration Carbamazepine 100 mg 01/29/20 22:00 02/02/20 14:26 Tegretol Chew PO 100 mg Q8HR MARY LOU Administration Clopidogrel Bisulfate 75 mg 01/30/20 09:00 02/02/20 08:30 Plavix PO 75 mg DAILY MARY LOU Administration Ezetimibe 10 mg 01/29/20 21:00 02/01/20 20:45 Zetia PO 10 mg HS MARY LOU Administration Enoxaparin Sodium 40 mg 01/31/20 09:00 02/02/20 08:30 Lovenox SUB-Q 40 mg DAILY MARY LOU Administration Hydralazine HCl 50 mg 01/30/20 08:00 02/02/20 12:01 Apresoline Tablet PO 50 mg TIDWM MARY LOU Administration Hydrochlorothiazide 25 mg 01/30/20 09:00 02/02/20 08:30 Hydrochlorothiazide PO 25 mg DAILY MARY LOU Administration Labetalol HCl 200 mg 01/29/20 22:00 02/02/20 14:25 Trandate PO 200 mg Q8HR MARY LOU Administration Lidocaine HCl 1 applic 02/02/20 01:12 Lidocaine Hcl 4% Soln TOPICAL PRN PRN neuropathy pain Lisinopril 40 mg 01/30/20 09:00 02/02/20 08:30 Prinivil PO 40 mg DAILY MARY LOU Administration Lorazepam 0.5 mg 01/29/20 18:51 02/02/20 01:11 Ativan Tablet PO 0.5 mg BID PRN Administration an
[2020-02-01 16:46] LABS: Glucose Point of Care 126 (65-105)
[2020-02-01] MEDS: amLODIPine BESYLATE 5 MG TABLET 10 MG PO (17:29)
[2020-02-01] MEDS: EZETIMIBE 10 MG TABLET PO (20:45)
[2020-02-01] MEDS: ATORVASTATIN 40 MG TABLET 80 MG PO (20:46)
[2020-02-01] MEDS: MELATONIN 5 MG TABLET 20 MG PO (20:49)
[2020-02-01] MEDS: LORazepam 0.5 MG TABLET PO (20:50)
[2020-02-02] MEDS: LORazepam 0.5 MG TABLET PO ×2 (01:11→21:04)
[2020-02-02 05:32] VITALS: PULSE 70
[2020-02-02] MEDS: LABETALOL HCL 100 MG TABLET 200 MG PO ×3 (05:32→21:01)
[2020-02-02 06:00] VITALS: BP 185/58; PULSE 64; RESP 16; TEMP 36.4; O2SAT 97
[2020-02-02 06:18] LABS: Glucose Point of Care 171 (65-105)
[2020-02-02] MEDS: ENOXAPARIN 40 MG/0.4 ML SYRINGE SUB-Q (08:30)
[2020-02-02] MEDS: hydrALAZINE HCL 50 MG TABLET PO ×3 (08:30→17:14)
[2020-02-02] MEDS: ASPIRIN 81 MG ENTERIC TABLET PO (08:30)
[2020-02-02] MEDS: metFORMIN HCL 500 MG TABLET PO ×2 (08:30→17:14)
[2020-02-02] MEDS: CLOPIDOGREL BISULFATE 75 MG TABLET PO (08:30)
[2020-02-02] MEDS: lisinopriL 20 MG TABLET 40 MG PO (08:30)
[2020-02-02] MEDS: hydroCHLOROthiazide 25 MG TABLET PO (08:30)
--- NOTE | 2020-02-02 12:39 | PM.PNNEP ---
Progress Note: A&P Assessment and Plan (1) Hypertension: Code(s): I10 - Essential (primary) hypertension Status: Acute Assessment and Plan: severe hypertension on admission to [facility] has underlying essential hypertension for 30+ year seems only recently that her BP has risen to extremes CT angio of abd/pelvis negative for renal artery stenosis hormonal studies are still pending (but reportedly previous work-up for pheochromycytoma was negative) BP seems to be doing better - current regimen of hydralazine + HCTZ + amlodipine + lisinopril + labetalol follow trend of hemodynamics - usually high in AM - improves over course of day with administration for BP meds (2) Left adrenal mass: Code(s): E27.8 - Other specified disorders of adrenal gland Status: Acute Assessment and Plan: mass is stable in appearance (but it is unclear whether it is hormonally active) hormonal testing is pending Will continue to follow Subjective Date/time seen: 02/02/20 12:39 Doing reasonably well since I last saw her (when she was an inpatient on medical floor); BP has been relatively stable; doing reasonably well with PT/OT. Exam Narrative: Exam Narrative: General: WD/WN female in NAD Heart: normal S1 and S2; no rub Lungs: clear to auscultation Abdomen: soft, nontender, nondistended, positive bowel sounds Extremities: no cyanosis or clubbing; no edema Skin: warm and dry Objective Data Vital Signs Vital Signs: Vital Signs Temp Pulse Resp BP Pulse Ox 02/02/20 06:00 36.4 C L 64 16 185/58 H 97 02/02/20 05:32 70 02/01/20 21:48 36.5 C 71 18 152/48 H 96 02/01/20 20:47 70 02/01/20 14:04 64 02/01/20 14:00 36.3 C L 72 20 129/47 L 99 Intake/Output Intake/Output: Intake & Output 01/30/20 01/31/20 02/01/20 02/02/20 23:59 23:59 23:59 23:59 Intake Total 720 720 840 Balance 720 720 840 Meds/Results Medications: Active Medications Generic Name Dose Route Start Last Admin Trade Name Freq PRN Reason Stop Dose Admin Acetaminophen 650 mg 01/29/20 18:51 Tylenol Tablet PO Q4H PRN Mild Pain (1-3) Or Fever Amlodipine Besylate 10 mg 01/30/20 18:00 02/01/20 17:29 Norvasc PO 10 mg DAILY@1800 MARY LOU Administration Aspirin 81 mg 01/30/20 09:00 02/02/20 08:30 Aspirin Ec PO 81 mg DAILY MARY LOU Administration Atorvastatin Calcium 80 mg 01/29/20 21:00 02/01/20 20:46 Lipitor PO 80 mg HS MARY LOU Administration Carbamazepine 100 mg 01/29/20 22:00 02/02/20 05:30 Tegretol Chew PO 100 mg Q8HR MARY LOU Administration Clopidogrel Bisulfate 75 mg 01/30/20 09:00 02/02/20 08:30 Plavix PO 75 mg DAILY MARY LOU Administration Ezetimibe 10 mg 01/29/20 21:00 02/01/20 20:45 Zetia PO 10 mg HS MARY LOU Administration Enoxaparin Sodium 40 mg 01/31/20 09:00 02/02/20 08:30 Lovenox SUB-Q 40 mg DAILY [facility] Administration Hydralazine HCl 50 mg 01/30/20 08:00 02/02/20 12:01 Apresoline Tablet PO 50 mg TIDWM [facility] Administration Hydrochlorothiazide 25 mg 01/30/20 09:00 02/02/20 08:30 Hydrochlorothiazide PO 25 mg DAILY [facility] Administration Labetalol HCl 200 mg 01/29/20 22:00 02/02/20 05:32 Trandate PO 200 mg Q8HR MARY LOU Administration Lidocaine HCl 1 applic 02/02/20 01:12 Lidocaine Hcl 4% Soln TOPICAL PRN PRN neuropathy pain Lisinopril 40 mg 01/30/20 09:00 02/02/20 08:30 Prinivil PO 40 mg DAILY [facility] Administration Lorazepam 0.5 mg 01/29/20 18:51 02/02/20 01:11 Ativan Tablet PO 0.5 mg BID PRN Administration anxiety Melatonin 20 mg 01/29/20 18:51 02/01/20 20:49 Melatonin PO 20 mg HS PRN Administration Insomnia Metformin HCl 500 mg 01/30/20 08:00 02/02/20 08:30 Glucophage PO 500 mg BIDWM MARY LOU Administration Oxymetazoline HCl 1 spray 01/30/20 20:35 01/30/20 21:29 Afrin Nasal NASAL 1 sp
[2020-02-02 14:00] VITALS: BP 123/45; PULSE 71; RESP 18; TEMP 36.6; O2SAT 98
[2020-02-02 14:25] VITALS: PULSE 78
--- NOTE | 2020-02-02 14:43 | WPDNEURORHBP ---
Subjective Date/time seen: 02/02/20 14:43 Interval history: the patient is a 74-year-old is here because of gait disorder with paraparesis with multiple medical issues ready mentioned in my history and physical examination She is making progress denies any headache nausea vomiting chest pain shortness of breath fever chills sore Review of Systems Review of Systems: All systems reviewed & are unremarkable except as noted in HPI and below Functional Status Ambulation Ability Ability to Ambulate 10 Feet: Standby Assistance Ability to Ambulate 50 Feet With 2 Turns: Standby Assistance Ability to Ambulate 150 Feet: Standby Assistance Ambulation Assistive Devices: Walker, Wheeled Transfers Ability Ability to Transfer In/Out of Chair: Standby Assistance Exam Const: General: comfortable and no acute distress HENMT: General nose exam: Normal nares present Mouth: Yes moist mucous membranes Eyes: General: appearance normal, both eyes and all related structures Neck: Neck: supple and no JVD Resp: Effort & Inspection: normal respiratory effort Auscultation: clear to auscultation bilaterally Cardio: Rate: regular rate Rhythm: regular rhythm GI: GI Palp: Yes Soft to palpation Auscultation: normal bowel sounds Skin: General skin exam: normal color and no rashes or lesions noted Neuro: Other: patient has weakness in the lower extremities is improving her gait is improving cervical myelopathy is improving Extrem: General: normal to inspection Psych: Mental Status: mental status grossly normal Objective Data Vital Signs Vital Signs: Vital Signs - 24 hr 02/01/20 20:47 02/01/20 21:48 02/02/20 05:32 Temperature 36.5 C Pulse Rate 70 71 70 Respiratory Rate 18 Blood Pressure 152/48 H Pulse Oximetry 96 02/02/20 06:00 02/02/20 14:00 02/02/20 14:25 Temperature 36.4 C L 36.6 C Pulse Rate 64 71 78 Respiratory Rate 16 18 Blood Pressure 185/58 H 123/45 L Pulse Oximetry 97 98 Intake/Output Intake/Output: Intake & Output 01/30/20 01/31/20 02/01/20 02/02/20 23:59 23:59 23:59 23:59 Intake Total 720 720 840 360 Balance 720 720 840 360 Meds/Results Medications: Active Medications Generic Name Dose Route Start Last Admin Trade Name Freq PRN Reason Stop Dose Admin Acetaminophen 650 mg 01/29/20 18:51 Tylenol Tablet PO Q4H PRN Mild Pain (1-3) Or Fever Amlodipine Besylate 10 mg 01/30/20 18:00 02/01/20 17:29 Norvasc PO 10 mg DAILY@1800 MARY LOU Administration Aspirin 81 mg 01/30/20 09:00 02/02/20 08:30 Aspirin Ec PO 81 mg DAILY MARY LOU Administration Atorvastatin Calcium 80 mg 01/29/20 21:00 02/01/20 20:46 Lipitor PO 80 mg HS MARY LOU Administration Carbamazepine 100 mg 01/29/20 22:00 02/02/20 14:26 Tegretol Chew PO 100 mg Q8HR MARY LOU Administration Clopidogrel Bisulfate 75 mg 01/30/20 09:00 02/02/20 08:30 Plavix PO 75 mg DAILY MARY LOU Administration Ezetimibe 10 mg 01/29/20 21:00 02/01/20 20:45 Zetia PO 10 mg HS MARY LOU Administration Enoxaparin Sodium 40 mg 01/31/20 09:00 02/02/20 08:30 Lovenox SUB-Q 40 mg DAILY MARY LOU Administration Hydralazine HCl 50 mg 01/30/20 08:00 02/02/20 12:01 Apresoline Tablet PO 50 mg TIDWM MARY LOU Administration Hydrochlorothiazide 25 mg 01/30/20 09:00 02/02/20 08:30 Hydrochlorothiazide PO 25 mg DAILY MARY LOU Administration Labetalol HCl 200 mg 01/29/20 22:00 02/02/20 14:25 Trandate PO 200 mg Q8HR MARY LOU Administration Lidocaine HCl 1 applic 02/02/20 01:12 Lidocaine Hcl 4% Soln TOPICAL PRN PRN neuropathy pain Lisinopril 40 mg 01/30/20 09:00 02/02/20 08:30 Prinivil PO 40 mg DAILY MARY LOU Administration Lorazepam 0.5 mg 01/29/20 18:51 02/02/20 01:11 Ativan Tablet PO 0.5 mg BID PRN Administration anxiety Melatonin 20 mg 01/29/20 18:51 02/01/20 20:49 Melatonin PO 20 mg HS PRN Administration Insomnia Metformin HC
[2020-02-02 16:48] LABS: Glucose Point of Care 163 (65-105)
[2020-02-02] MEDS: amLODIPine BESYLATE 5 MG TABLET 10 MG PO (17:15)
[2020-02-02 21:01] VITALS: PULSE 78
[2020-02-02] MEDS: ATORVASTATIN 40 MG TABLET 80 MG PO (21:02)
[2020-02-02] MEDS: EZETIMIBE 10 MG TABLET PO (21:02)
[2020-02-02] MEDS: MELATONIN 5 MG TABLET 20 MG PO (21:04)
[2020-02-02 22:00] VITALS: BP 187/60; PULSE 69; RESP 20; TEMP 36.6; O2SAT 97
[2020-02-03] VITALS (8 sets, daily range): BP systolic 147–181; BP diastolic 48–56; PULSE 65–80; RESP 18–20; TEMP 36.2–36.7; O2SAT 94–99
[2020-02-03] MEDS: LABETALOL HCL 100 MG TABLET 200 MG PO ×3 (06:31→21:27)
[2020-02-03 06:47] LABS: Glucose Point of Care 142 (65-105)
[2020-02-03] MEDS: ENOXAPARIN 40 MG/0.4 ML SYRINGE SUB-Q (08:33)
[2020-02-03] MEDS: hydrALAZINE HCL 50 MG TABLET PO ×3 (08:33→17:38)
[2020-02-03] MEDS: ASPIRIN 81 MG ENTERIC TABLET PO (08:33)
[2020-02-03] MEDS: metFORMIN HCL 500 MG TABLET PO ×2 (08:33→17:37)
[2020-02-03] MEDS: CLOPIDOGREL BISULFATE 75 MG TABLET PO (08:33)
[2020-02-03] MEDS: lisinopriL 20 MG TABLET 40 MG PO (08:34)
[2020-02-03] MEDS: hydroCHLOROthiazide 25 MG TABLET PO (08:34)
[2020-02-03] MEDS: LORazepam 0.5 MG TABLET PO ×2 (14:25→21:27)
[2020-02-03 17:05] LABS: Glucose Point of Care 124 (65-105)
[2020-02-03] MEDS: amLODIPine BESYLATE 5 MG TABLET 10 MG PO (17:37)
[2020-02-03] MEDS: EZETIMIBE 10 MG TABLET PO (21:27)
[2020-02-03] MEDS: MELATONIN 5 MG TABLET 20 MG PO (21:27)
[2020-02-03] MEDS: ATORVASTATIN 40 MG TABLET 80 MG PO (21:28)
[2020-02-04 05:53] VITALS: BP 161/48; PULSE 73; RESP 16; TEMP 37; O2SAT 95
[2020-02-04 06:39] VITALS: PULSE 75
[2020-02-04] MEDS: LABETALOL HCL 100 MG TABLET 200 MG PO ×3 (06:39→20:09)
[2020-02-04 06:52] LABS: Glucose Point of Care 126 (65-105)
[2020-02-04] MEDS: lisinopriL 20 MG TABLET 40 MG PO (09:10)
[2020-02-04] MEDS: CLOPIDOGREL BISULFATE 75 MG TABLET PO (09:10)
[2020-02-04] MEDS: ENOXAPARIN 40 MG/0.4 ML SYRINGE SUB-Q (09:10)
[2020-02-04] MEDS: hydroCHLOROthiazide 25 MG TABLET PO (09:10)
[2020-02-04] MEDS: ASPIRIN 81 MG ENTERIC TABLET PO (09:10)
[2020-02-04] MEDS: metFORMIN HCL 500 MG TABLET PO ×2 (09:10→16:57)
[2020-02-04] MEDS: hydrALAZINE HCL 50 MG TABLET PO ×3 (09:10→16:58)
[2020-02-04 13:53] VITALS: PULSE 75
[2020-02-04 14:00] VITALS: BP 132/48; PULSE 78; RESP 18; TEMP 36.6; O2SAT 99
--- NOTE | 2020-02-04 14:00 | WPDNEURORHBP ---
Subjective Date/time seen: Gait disorder with [id number]/19/20 14:00 Review of Systems Review of Systems: All systems reviewed & are unremarkable except as noted in HPI and below Functional Status Ambulation Ability Ability to Ambulate 10 Feet: Independent Ability to Ambulate 50 Feet With 2 Turns: Independent Ability to Ambulate 150 Feet: Independent Ambulation Assistive Devices: Walker, Wheeled Transfers Ability Ability to Transfer In/Out of Chair: Independent Exam Const: General: cooperative, comfortable and no acute distress Nutritional Appearance: average body habitus Orientation/consciousness: patient oriented x3 HENMT: Head: normal to inspection Ears: hearing grossly normal bilaterally General nose exam: Normal external nose present and No nasal discharge present Face and sinus: normal facial exam Eyes: General: appearance normal, both eyes and all related structures Neck: Neck: full ROM Resp: Auscultation: clear to auscultation bilaterally Cardio: Rate: regular rate Rhythm: regular rhythm GI: Auscultation: normal bowel sounds Skin: General skin exam: no rashes or lesions noted Neuro: General: patient oriented x3 and moves all extremities Cranial nerves: Yes CN's II-XII intact bilaterally, Yes Equal, round and reactive pupils present, Yes Nystagmus not present, Yes Normal facial strength present, Yes Midline tongue present, Yes Normal hearing present, Yes Ability to bilaterally rotate head present and Yes Ability to bilaterally elevate shoulders present Cognition (Neuro): normal cognition Speech: normal speech Gait exam (Neuro): Antalgic gait present Motor exam (neuro): Abnormal motor strength present (lower extremities) Sensory Exam: Sensory deficit (Neuro) Deep tendon reflexes (DTR's): Right patellar reflex intensity grade: 1+, Left patellar reflex intensity grade: 1+, Right ankle reflex intensity grade: 1+ and Left ankle reflex intensity grade: 1+ Plantar Reflex Responses: equivocal: bilateral Extrem: General: normal to inspection Psych: Appearance: grossly normal Objective Data Vital Signs Vital Signs: Vital Signs - 24 hr 02/03/20 21:23 02/03/20 21:27 02/03/20 22:00 Temperature 36.6 C Pulse Rate 70 65 Respiratory Rate 18 Blood Pressure 175/56 H Pulse Oximetry 94 98 02/04/20 05:53 02/04/20 06:39 02/04/20 13:53 Temperature 37.0 C Pulse Rate 73 75 75 Respiratory Rate 16 Blood Pressure 161/48 H Pulse Oximetry 95 Intake/Output Intake/Output: Intake & Output 02/01/20 02/02/20 02/03/20 02/04/20 23:59 23:59 23:59 23:59 Intake Total 840 360 720 360 Balance 840 360 720 360 Meds/Results Medications: Active Medications Generic Name Dose Route Start Last Admin Trade Name Freq PRN Reason Stop Dose Admin Acetaminophen 650 mg 01/29/20 18:51 Tylenol Tablet PO Q4H PRN Mild Pain (1-3) Or Fever Amlodipine Besylate 10 mg 01/30/20 18:00 02/03/20 17:37 Norvasc PO 10 mg DAILY@1800 MARY LOU Administration Aspirin 81 mg 01/30/20 09:00 02/04/20 09:10 Aspirin Ec PO 81 mg DAILY MARY LOU Administration Atorvastatin Calcium 80 mg 01/29/20 21:00 02/03/20 21:28 Lipitor PO 80 mg HS MARY LOU Administration Carbamazepine 100 mg 01/29/20 22:00 02/04/20 13:53 Tegretol Chew PO 100 mg Q8HR MARY LOU Administration Clopidogrel Bisulfate 75 mg 01/30/20 09:00 02/04/20 09:10 Plavix PO 75 mg DAILY MARY LOU Administration Ezetimibe 10 mg 01/29/20 21:00 02/03/20 21:27 Zetia PO 10 mg HS MARY LOU Administration Enoxaparin Sodium 40 mg 01/31/20 09:00 02/04/20 09:10 Lovenox SUB-Q 40 mg DAILY MARY LOU Administration Hydralazine HCl 50 mg 01/30/20 08:00 02/04/20 11:58 Apresoline Tablet PO 50 mg TIDWM MARY LOU Administration Hydrochlorothiazide 25 mg 01/30/20 09:00 02/04/20 09:10 Hydrochlorothiazide PO 25 mg DAILY MARY LOU Administration Labetalol HCl 200 mg 01/29/20 22:00 02/04/20 13:53 Trandate PO 2
[2020-02-04 16:48] LABS: Glucose Point of Care 123 (65-105)
[2020-02-04] MEDS: amLODIPine BESYLATE 5 MG TABLET 10 MG PO (17:00)
[2020-02-04] MEDS: OXYMETAZOLINE HCL 0.05% NAS 15 ML BTL (*BKC) 1 SPRAY NASAL (20:05)
[2020-02-04 20:09] VITALS: PULSE 78
[2020-02-04] MEDS: ATORVASTATIN 40 MG TABLET 80 MG PO (20:09)
[2020-02-04] MEDS: EZETIMIBE 10 MG TABLET PO (20:09)
[2020-02-04] MEDS: MELATONIN 5 MG TABLET 20 MG PO (20:17)
[2020-02-04] MEDS: LORazepam 0.5 MG TABLET PO (20:18)
[2020-02-04 22:00] VITALS: BP 141/42; PULSE 78; RESP 18; TEMP 37; O2SAT 97
[2020-02-05] VITALS (8 sets, daily range): BP systolic 144–168; BP diastolic 34–60; PULSE 67–80; RESP 18–20; TEMP 36.3–37; O2SAT 95–98; BMI 29.0
[2020-02-05] MEDS: LORazepam 0.5 MG TABLET PO ×2 (01:15→21:03)
[2020-02-05] MEDS: LABETALOL HCL 100 MG TABLET 200 MG PO ×3 (05:41→21:04)
[2020-02-05 06:19] LABS: Glucose Point of Care 154 (65-105)
[2020-02-05] MEDS: CLOPIDOGREL BISULFATE 75 MG TABLET PO (09:10)
[2020-02-05] MEDS: hydroCHLOROthiazide 25 MG TABLET PO (09:11)
[2020-02-05] MEDS: ENOXAPARIN 40 MG/0.4 ML SYRINGE SUB-Q (09:11)
[2020-02-05] MEDS: lisinopriL 20 MG TABLET 40 MG PO (09:11)
[2020-02-05] MEDS: ASPIRIN 81 MG ENTERIC TABLET PO (09:11)
[2020-02-05] MEDS: metFORMIN HCL 500 MG TABLET PO ×2 (09:11→17:16)
[2020-02-05] MEDS: hydrALAZINE HCL 50 MG TABLET PO ×2 (09:12→14:03)
--- NOTE | 2020-02-05 10:42 | PCPTNOTE ---
Addendum entered by Zakia Ricks, PT 02/05/20 10:43: Modify the last 2 words of wheeled walker to safe transfers/gait and ADL's. Zakia Ricks PT Original Note: Terese Bentley was evaluated for a wheeled walker on 02/05/2020 by this physical therapist. The wheeled walker will resolve patient's mobility limitations and will be used for ADL's within the home. The patient can safely use the wheeled walker. ?The wheeled walker will resolve the patient?s mobility deficits, including wheeled walker. Zakia Ricks PT
--- NOTE | 2020-02-05 16:52 | PM.PNNEP ---
Progress Note: A&P Assessment and Plan (1) Hypertension: Code(s): I10 - Essential (primary) hypertension Status: Acute Assessment and Plan: severe hypertension on admission to [facility] has underlying essential hypertension for 30+ year CT angio shows no renal artery stenosis. She has an adrenal adenoma which is very large but stable over the years. Checking to see if this is hormonally active. Unfortunately the hormone tests done here were not processed correctly so we can repeat these as an outpatient. Her blood pressure is high. She is on amlodipine 10, hydralazine 50 t.i.d., hydrochlorothiazide 25, labetalol 200 Q 8, lisinopril 40 daily. Will increase hydralazine [id number] t.i.d. (2) Left adrenal mass: Code(s): E27.8 - Other specified disorders of adrenal gland Status: Acute Assessment and Plan: mass is stable in appearance (but it is unclear whether it is hormonally active) hormonal testing is not done correctly. Will repeat as an outpatient. Patient should follow up with me in 2-4 weeks. Will continue to follow Subjective Date/time seen: 02/05/20 16:52 Interval history: patient is alert. She sitting up in a chair. Eager for discharge tomorrow Review of Systems Cardiovascular: Cardiovascular: Reports no additional cardiovascular complaints Respiratory: Respiratory: Reports no additional respiratory complaints Gastrointestinal: Gastrointestinal: Reports no additional gastrointestinal complaints Genitourinary: Genitourinary: Reports no additional female genitourinary complaints Exam Narrative: Exam Narrative: General: WD/WN female in NAD Heart: normal S1 and S2; no rub Lungs: clear bilaterally Abdomen: soft, nontender, nondistended, positive bowel sounds Extremities: no cyanosis or clubbing; no edema Skin: no rash Objective Data Vital Signs Vital Signs: Vital Signs - 24 hr 02/04/20 20:09 02/04/20 22:00 02/05/20 05:41 Temperature 37.0 C Pulse Rate 78 78 80 Respiratory Rate 18 Blood Pressure 141/42 H Pulse Oximetry 97 02/05/20 06:00 02/05/20 08:00 02/05/20 14:00 Temperature 36.3 C L 36.5 C Pulse Rate 67 67 70 Respiratory Rate 18 18 20 Blood Pressure 168/60 H 154/56 H Pulse Oximetry 97 97 97 02/05/20 14:02 Temperature Pulse Rate 67 Respiratory Rate Blood Pressure Pulse Oximetry Intake/Output Intake/Output: Intake & Output 02/02/20 02/03/20 02/04/20 02/05/20 23:59 23:59 23:59 23:59 Intake Total 360 720 840 440 Balance 360 720 840 440 Meds/Results Medications: Active Medications Generic Name Dose Route Start Last Admin Trade Name Freq PRN Reason Stop Dose Admin Acetaminophen 650 mg 01/29/20 18:51 Tylenol Tablet PO Q4H PRN Mild Pain (1-3) Or Fever Amlodipine Besylate 10 mg 01/30/20 18:00 02/04/20 17:00 Norvasc PO 10 mg DAILY@1800 MARY LOU Administration Aspirin 81 mg 01/30/20 09:00 02/05/20 09:11 Aspirin Ec PO 81 mg DAILY MARY LOU Administration Atorvastatin Calcium 80 mg 01/29/20 21:00 02/04/20 20:09 Lipitor PO 80 mg HS MARY LOU Administration Carbamazepine 100 mg 01/29/20 22:00 02/05/20 14:02 Tegretol Chew PO 100 mg Q8HR MARY LOU Administration Clopidogrel Bisulfate 75 mg 01/30/20 09:00 02/05/20 09:10 Plavix PO 75 mg DAILY MARY LOU Administration Ezetimibe 10 mg 01/29/20 21:00 02/04/20 20:09 Zetia PO 10 mg HS MARY LOU Administration Enoxaparin Sodium 40 mg 01/31/20 09:00 02/05/20 09:11 Lovenox SUB-Q 40 mg DAILY MARY LOU Administration Hydralazine HCl 50 mg 01/30/20 08:00 02/05/20 14:03 Apresoline Tablet PO 50 mg TIDWM MARY LOU Administration Hydrochlorothiazide 25 mg 01/30/20 09:00 02/05/20 09:11 Hydrochlorothiazide PO 25 mg DAILY MARY LOU Administration Labetalol HCl 200 mg 01/29/20 22:00 02/05/20 14:02 Trandate PO 200 mg Q8HR MARY LOU Administration Lidocaine HCl 1 applic
[2020-02-05] MEDS: hydrALAZINE HCL 50 MG TABLET 100 MG PO (17:16)
[2020-02-05] MEDS: amLODIPine BESYLATE 5 MG TABLET 10 MG PO (17:16)
[2020-02-05 17:22] LABS: Glucose Point of Care 119 (65-105)
[2020-02-05] MEDS: MELATONIN 5 MG TABLET 20 MG PO (21:03)
[2020-02-05] MEDS: ATORVASTATIN 40 MG TABLET 80 MG PO (21:04)
[2020-02-05] MEDS: EZETIMIBE 10 MG TABLET PO (21:06)
[2020-02-06] MEDS: LORazepam 0.5 MG TABLET PO (01:29)
[2020-02-06 04:44] LABS: Basophils Absolute Auto 0.1 K/mm3 (0.0-0.1); Basophils Percent Auto 1.3 % (0.2-1.2); Eosinophils Absolute Auto 0.2 K/mm3 (0-0.3); Eosinophils Percent Auto 2.6 % (0-4.4); Hematocrit 34.9 % (37.0-47.0); Hemoglobin 11.5 g/dL (12.0-15.0); Immature Granulocyte Absolute 0.04 K/mm3 (0.00-0.031); Immature Granulocyte Percent A 0.7 % (0-0.5); Lymphocytes Absolute Auto 1.17 K/mm3 (0.9-3.2); Lymphocytes Percent Auto 19.1 % (18.3-44.2); Mean Corpuscular Hemoglobin 29.5 pg (26-34); Mean Corpuscular Volume 89.5 fl (80-100); Mean Platelet Volume 9.9 fl (7.4-10.4); Monocytes Absolute Auto 0.6 K/mm3 (0.1-0.6); Neutrophils Absolute Auto 4.1 K/mm3 (1.3-6.7); Neutrophils Percent Auto 67.3 % (45.5-73.1); Platelet Count Result 276 k/mm3 (150-375); Red Cell Distribution Width 12.6 % (11.5-14.5); White Blood Count 6.1 K/mm3 (4.5-10.0)
[2020-02-06 04:59] LABS: Blood Urea Nitrogen 19 mg/dL (7-17); Calcium 9.1 mg/dL (8.4-10.2); Carbon Dioxide 26 mmol/L (22-30); Chloride 98 mmol/L (98-107); Estimated CRCL calculation 53 ml/min; Estimated Glomerular Filt Rate > 60; Glucose 154 mg/dL (65-105); Potassium 3.7 mmol/L (3.4-5.0); Sodium 132 mmol/L (137-145)
[2020-02-06 06:00] VITALS: BP 170/36; PULSE 57; RESP 18; TEMP 36.6; O2SAT 97
[2020-02-06 06:16] VITALS: PULSE 80
[2020-02-06] MEDS: LABETALOL HCL 100 MG TABLET 200 MG PO (06:16)
[2020-02-06 06:36] LABS: Glucose Point of Care 154 (65-105)
[2020-02-06 08:00] VITALS: PULSE 80; RESP 18; O2SAT 97
[2020-02-06] MEDS: ASPIRIN 81 MG ENTERIC TABLET PO (08:49)
[2020-02-06] MEDS: CLOPIDOGREL BISULFATE 75 MG TABLET PO (08:49)
[2020-02-06] MEDS: metFORMIN HCL 500 MG TABLET PO (08:50)
[2020-02-06] MEDS: hydrALAZINE HCL 50 MG TABLET 100 MG PO (08:50)
[2020-02-06] MEDS: hydroCHLOROthiazide 25 MG TABLET PO (08:50)
[2020-02-06] MEDS: lisinopriL 20 MG TABLET 40 MG PO (08:51)
[2020-02-06] MEDS: ENOXAPARIN 40 MG/0.4 ML SYRINGE SUB-Q (08:51)
--- NOTE | 2020-02-06 12:08 | WPDNEURORHBP ---
Subjective Date/time seen: 02/06/20 12:08 Interval history: This [age] year old woman has been here for the cervical thoracic and lumbar spondylosis along with the evidence on clinical grounds of the cervical myelopathy her gait disorder has significantly improved she is walking two hundred fifty feet with a walkerAnd have completed the course in the rehab She denies any headache nausea vomiting chest pain shortness of breath fever chills sore throat Review of Systems Review of Systems: All systems reviewed & are unremarkable except as noted in HPI and below Functional Status Ambulation Ability Ability to Ambulate 10 Feet: Independent Ability to Ambulate 50 Feet With 2 Turns: Independent Ability to Ambulate 150 Feet: Independent Ambulation Assistive Devices: Walker, Wheeled Transfers Ability Ability to Transfer In/Out of Chair: Independent Exam Const: General: comfortable and no acute distress HENMT: General nose exam: Normal nares present Mouth: Yes moist mucous membranes Eyes: General: appearance normal, both eyes and all related structures Neck: Neck: supple and no JVD Resp: Effort & Inspection: normal respiratory effort Auscultation: clear to auscultation bilaterally Cardio: Rate: regular rate Rhythm: regular rhythm GI: GI Palp: Yes Soft to palpation Auscultation: normal bowel sounds : External Female Exam: normal external appearance Skin: General skin exam: normal color and no rashes or lesions noted Neuro: Other: patient's mental status is within the normal range cranial examination is normal the underlying peripheral neuropathy and gait dysfunction has significantly improved and thus a quite back to have improvement from the time he received her Extrem: General: normal to inspection Psych: Mental Status: mental status grossly normal Objective Data Vital Signs Vital Signs: Vital Signs - 24 hr 02/05/20 14:00 02/05/20 14:02 02/05/20 19:42 Temperature 36.5 C Pulse Rate 70 67 Respiratory Rate 20 Blood Pressure 154/56 H Pulse Oximetry 97 95 02/05/20 21:04 02/05/20 22:00 02/06/20 06:00 Temperature 37.0 C 36.6 C Pulse Rate 72 77 57 L Respiratory Rate 18 18 Blood Pressure 144/34 H 170/36 H Pulse Oximetry 98 97 02/06/20 06:16 Temperature Pulse Rate 80 Respiratory Rate Blood Pressure Pulse Oximetry Intake/Output Intake/Output: Intake & Output 02/03/20 02/04/20 02/05/20 02/06/20 23:59 23:59 23:59 23:59 Intake Total 720 840 680 Balance 720 840 680 Meds/Results Medications: Active Medications Generic Name Dose Route Start Last Admin Trade Name Freq PRN Reason Stop Dose Admin Acetaminophen 650 mg 01/29/20 18:51 Tylenol Tablet PO Q4H PRN Mild Pain (1-3) Or Fever Amlodipine Besylate 10 mg 01/30/20 18:00 02/05/20 17:16 Norvasc PO 10 mg DAILY@1800 MARY LOU Administration Aspirin 81 mg 01/30/20 09:00 02/06/20 08:49 Aspirin Ec PO 81 mg DAILY MARY LOU Administration Atorvastatin Calcium 80 mg 01/29/20 21:00 02/05/20 21:04 Lipitor PO 80 mg HS MARY LOU Administration Carbamazepine 100 mg 01/29/20 22:00 02/06/20 06:16 Tegretol Chew PO 100 mg Q8HR MARY LOU Administration Clopidogrel Bisulfate 75 mg 01/30/20 09:00 02/06/20 08:49 Plavix PO 75 mg DAILY MARY LOU Administration Ezetimibe 10 mg 01/29/20 21:00 02/05/20 21:06 Zetia PO 10 mg HS MARY LOU Administration Enoxaparin Sodium 40 mg 01/31/20 09:00 02/06/20 08:51 Lovenox SUB-Q 40 mg DAILY MARY LOU Administration Hydralazine HCl 100 mg 02/05/20 17:00 02/06/20 08:50 Apresoline Tablet PO 100 mg TIDWM MARY LOU Administration Hydrochlorothiazide 25 mg 01/30/20 09:00 02/06/20 08:50 Hydrochlorothiazide PO 25 mg DAILY MARY LOU Administration Labetalol HCl 200 mg 01/29/20 22:00 02/06/20 06:16 Trandate PO 200 mg Q8HR MARY LOU Administration Lidocaine HCl 1 applic 02/02/20 01:12 Lidocaine Hcl 4% Soln TOPICAL PRN
--- NOTE | 2020-02-06 15:08 | PC.NURSE ---
Patient called and stated the pharmacy did not get her prescription for metformin. Per Dr. Tavera orders Metformin 500mg po twice daily with meals #60 with one refill was called to [facility] pharmacy in [place].
--- NOTE | 2020-02-10 11:38 | PM.DS ---
DS: Admitting Diagnosis Admitting Diagnosis Admitting Diagnosis: Spondylosis without myelopathy or radiculopathy, lumbar region DS: Discharge Diagnosis Discharge Diagnosis (1) Cervical spondylosis with myelopathy: Code(s): M47.12 - Other spondylosis with myelopathy, cervical region Status: Acute (2) Paraparesis: Code(s): G82.20 - Paraplegia, unspecified Status: Acute (3) Lumbar spondylosis: Code(s): M47.816 - Spondylosis without myelopathy or radiculopathy, lumbar region Status: Acute (4) Peripheral neuropathy: Code(s): G62.9 - Polyneuropathy, unspecified Status: Acute (5) Diabetes mellitus: Code(s): E11.9 - Type 2 diabetes mellitus without complications Status: Acute (6) Hyperglycemia: Code(s): R73.9 - Hyperglycemia, unspecified Status: Acute (7) Coronary artery disease: Code(s): I25.10 - Atherosclerotic heart disease of [place] coronary artery without angina pectoris Status: Acute (8) Tobacco abuse: Code(s): Z72.0 - Tobacco use Status: Acute (9) Left adrenal mass: Code(s): E27.8 - Other specified disorders of adrenal gland Status: Acute (10) Hypertension: Code(s): I10 - Essential (primary) hypertension Status: Acute (11) Weakness of right lower extremity: Code(s): R29.898 - Other symptoms and signs involving the musculoskeletal system Status: Acute (12) Anxiety: Code(s): F41.9 - Anxiety disorder, unspecified Status: Acute (13) Osteoarthritis: Qualifiers: Osteoarthritis location: unspecified site Osteoarthritis type: unspecified Qualified Code(s): M19.90 - Unspecified osteoarthritis, unspecified site Code(s): M19.90 - Unspecified osteoarthritis, unspecified site Status: Acute (14) CAD (coronary artery disease): Qualifiers: Coronary Disease-Associated Artery/Lesion type: [place] artery [place] vs. transplanted heart: [place] heart Associated angina: without angina Qualified Code(s): I25.10 - Atherosclerotic heart disease of [place] coronary artery without angina pectoris Code(s): I25.10 - Atherosclerotic heart disease of [place] coronary artery without angina pectoris Status: Acute DS: Summary Hospital Course Reason for hospitalization: This 74-year-old was admitted primarily because of lower extremity weakness related to spinal spondylosis at multiple regions particularly involving the cervical and the lumbar region along with the other comorbid conditions which remained stable and/or improved patient's of the physical therapy occupational therapy and gait training and did fairly well and was able to be discharged home with home health to follow Hospital Course: eating was independent oral hygiene was independent toileting was independent bathing was independent and upper body dressing was independent lower body dressing was independent foot fair was independent rolling in bed was independent sitting to lying was independent lying to sitting was independent mfr-ad-onhum is independent chair transfers independent toilet transfers supervision car transfers, walking 10 feet, walking 50 feet with 2 turns, walking 150 feet, all were independent. Walking 10 feet uneven surfaces independent car or step independent 4 steps independent 12 steps patient was unable to picking of object independent wheelchair was not applicable Time Spent with Patient Time attestation: Total time spent providing and/or coordinating discharge services: Exam Const: General: comfortable and no acute distress HENMT: General nose exam: Normal nares present Mouth: Yes dry mucous membranes Eyes: General: appearance normal, both eyes and all related structures Neck: Neck: supple and no JVD Resp: Effort & Inspection: normal respiratory effort Auscultation: clear to auscultation bilaterally Cardio: Rate: regular rate Rhythm: regular rhythm GI:
== END 2020-02-06 13:20 | disposition home health service (06) | DRG 552 ==
PROVIDERS: Admitting Provider Psychiatry & Neurology Neurology; PCP Family Medicine; Visit Provider Psychiatry & Neurology Neurology
DX: M47.12 Other spondylosis with myelopathy, cervical region (principal); G82.20 Paraplegia, unspecified; M47.816 Spondylosis without myelopathy or radiculopathy, lumbar region; R53.81 Other malaise; E27.9 Disorder of adrenal gland, unspecified; E11.42 Type 2 diabetes mellitus with diabetic polyneuropathy; E11.65 Type 2 diabetes mellitus with hyperglycemia; E78.5 Hyperlipidemia, unspecified; F41.9 Anxiety disorder, unspecified; G47.33 Obstructive sleep apnea (adult) (pediatric); I25.10 Atherosclerotic heart disease of native coronary artery without angina pectoris; I10 Essential (primary) hypertension; R20.2 Paresthesia of skin; M17.11 Unilateral primary osteoarthritis, right knee; R26.9 Unspecified abnormalities of gait and mobility; Z85.828 Personal history of other malignant neoplasm of skin; Z95.5 Presence of coronary angioplasty implant and graft; Z96.642 Presence of left artificial hip joint; Z87.891 Personal history of nicotine dependence; Z79.02 Long term (current) use of antithrombotics/antiplatelets; Z79.84 Long term (current) use of oral hypoglycemic drugs
CPT/HCPCS: 36415; 80048; 85025; 97110; 97116; 97161; 97165; 97530; 97535; A9270; J1650

== ENCOUNTER 2020-04-04 10:52 | Outpatient (RCR) | payer MEDICARE, SELFPAY ==
[2020-04-04 10:57] VITALS: BMI 25.9
== END 2020-06-27 12:46 | disposition home or self-care (01) ==
LOC: ANHDMC 10:52
PROVIDERS: PCP Family Medicine; Visit Provider Family Medicine
DX: E11.65 Type 2 diabetes mellitus with hyperglycemia (principal); Z71.3 Dietary counseling and surveillance
CPT/HCPCS: 97802

== ENCOUNTER 2020-05-17 11:26 | Emergency (ER) | payer MEDICARE, SELFPAY ==
--- NOTE | 2020-05-17 11:57 | PC.NURSE ---
patients came to intake desk at this time stating that they are going to go on home due to patient being in quarantine for a surgery next week and they are not supposed to be around other people.
== END 2020-05-17 11:57 | disposition left against medical advice (07) ==
PROVIDERS: PCP Family Medicine
DX: Z53.21 Procedure and treatment not carried out due to patient leaving prior to being seen by health care provider (principal)
CPT/HCPCS: 99199

== ENCOUNTER 2021-04-04 10:39 | Emergency (ER) | payer MEDICARE, SELFPAY ==
--- NOTE | ~2021-04-04 | CT_ITS ---
EXAMINATION: CT diagnostic chest w con DATE: 04/04/2021 15:24 INDICATION: Possible lung nodule on chest radiograph TECHNIQUE: Transaxial computed tomographic images of the chest were obtained after the administration of 75 cc of Omnipaque 350 intravenous contrast. The dose-length product (DLP) was 214.68 mGy-cm. Ite rative reconstruction was used. COMPARISON: 01/27/2020 FINDINGS: There is a healing fracture at the posterior aspect of the left fourth rib which accounts f or the radiographic finding in question. There is a 6 mm subpleural nodule in the right middle lobe. There is mild emphysema. There is dependent atelectasis. Cardiomegaly is noted. There is calcified co ronary artery atherosclerosis. There is dense calcification of the mitral annulus. There is a stable 6.6 x 5.7 cm heterogeneous mass of the left adrenal gland demonstrating fat, calcification, and soft tissue density, consistent with a myelolipoma. There is severe thoracic spondylosis. IMPRESSION: 1. Healing left fourth rib fracture accounting for the radiographic finding in question. 2. 6 mm right middle lobe nodule. Consider follow-up CT in 12 months. Reviewed, dictated and finalized at location A.
--- NOTE | ~2021-04-04 | XR_ITS ---
EXAMINATION: XR chest 2V DATE: 04/04/2021 12:54 INDICATION: Weakness TECHNIQUE: frontal and lateral views of the chest were obtained. COMPARISON: Chest radiograph dated 01/27/2020 FINDINGS: Small triangular opacity with relatively well-defined linear margins projecting over the left upper l cony zone on the frontal projection without evident correlate on the lateral projection. Skinfold proj ects over the lateral right lower lung zone. No other airspace opacities, pulmonary edema, pleural ef fusion or pneumothorax. Cardiomegaly. Dense mitral annular calcification. Old healed anterior right f ourth and fifth rib fractures. Degenerative skeletal changes in the spine and at both shoulders. IMPRESSION: 1. Triangular opacity projecting over the left upper lung zone, unclear whether intrapulmonary. Diffe rential would include atelectasis, pneumonia, malignancy, pulmonary infarct or material external to t he patient. Consider chest CT for further evaluation. 2. Cardiomegaly. Reviewed, dictated and finalized at location A. IMPRESSION: 1. Triangular opacity projecting over the left upper lung zone, unclear whether intrapulmonary. Differential would include atelectasis, pneumonia, malignancy, pulmonary infarct or material external to the patient. Consider chest CT for f urther evaluation. 2. Cardiomegaly.
--- NOTE | ~2021-04-04 | XR_ITS ---
EXAMINATION: XR lumbar spine 2-3V DATE: 04/04/2021 12:54 INDICATION: Chronic low back pain radiating to the right leg TECHNIQUE: Anteroposterior and lateral views of the lumbar spine, and cone-down lateral view of the l umbosacral junction were obtained. COMPARISON: CT dated 01/27/2020 and MRI dated 12/25/2019 FINDINGS: Minimal thoracolumbar levocurvature. Interval L4-L5 anterior and posterior spinal fusion with interbo dy bone graft cages and bilateral vertical porsha and pedicle screw fixation. The vertebral body heights are normal. Mild disc height loss at L2-L3 and L3-L4 and moderate disc height loss at L5-S1. Severe facet osteoarthritis at L3-L4 and mild to moderate facet osteoarthritis throughout the remainder of t he lumbar spine. Moderate right hip and mild to moderate bilateral sacroiliac osteoarthritis. Partial ly visualized left total hip arthroplasty. Atherosclerotic calcific a cyst along the abdominal aorta and bilateral iliac arteries. 2 mm stone at the upper pole of the right kidney. IMPRESSION: 1. Moderate lumbar spondylosis with a noncemented anterior and posterior spinal fusion at L4-L5. 2. 2 mm right renal stone. Reviewed, dictated and finalized at location A.
[2021-04-04 10:58] VITALS: BP 138/48; PULSE 79; RESP 18; TEMP 36.5; O2SAT 97
--- NOTE | 2021-04-04 12:35 | ECG_ITS ---
Measurements Intervals [place] Rate: 68 P: -40 [place]: 168 QRS: 189 QRSD: 156 T: 12 QT: 421 QTc: 448 Interpretive Statements SINUS OR ECTOPIC ATRIAL RHYTHM RIGHT BUNDLE BRANCH BLOCK HIGH LATERAL INFARCT, AGE INDETERMINATE ABNORMAL ECG Electronically Signed On 04-04-2021 14:05:43 CDT by Aryan Gunn D.O.
--- NOTE | 2021-04-04 12:53 | PC.NURSE ---
Pt taken to CT scan
--- NOTE | 2021-04-04 13:25 | ED.GENADULT ---
HPI - General Adult General Chief complaint: Back Pain/Injury Stated complaint: BACK PAIN Time Seen by Provider: 04/04/21 12:08 Source: patient, family and RN notes reviewed History of Present Illness HPI narrative: This is a 75 year old female with history of chronic back pain and chronic hip pain who presents for evaluation of generalized weakness. Patient reports she has been following up with an orthopedic surgeon for several months for pain management. She had completed physical therapy and she has been walking with a rollator. She reports today she needs assistance getting out of bed and standing up and turning over. She reports pain during these activities but her doctor will not prescribe her pain medication. She denies any pain currently. She denies nausea, vomiting, fever, dysuria, urinary incontinence, urinary retention or saddle anesthesia. She reports intermittent tingling to her legs since her surgery but denies any deficits currently. Related Data Home Medications Medication Instructions Recorded Confirmed aspirin 81 mg tablet,delayed 81 mg PO DAILY 12/14/19 01/28/21 release multivitamin 1 tablet PO DAILY 02/20/20 01/28/21 clopidogrel 04/04/21 furosemide 04/04/21 04/04/21 Allergies Allergy/AdvReac Type Severity Reaction Status Date / Time No Known Allergies Verified 04/04/21 11:55 Review of Systems Review of Systems: All systems reviewed & are unremarkable except as noted in HPI and below PMFSH Past Medical History Medical History (Updated 04/04/21 @ 16:34 by Marii Lima MD) Anxiety Coronary artery disease Abnormal MPI in 11/2014.Subsequent cardiac catheterization showed high-grade mid LAD stenosis in which a bare-metal stent was placed per Dr. Perez. She is followed in the clinic by Dr. Antonella Edmonds. Diabetes mellitus Dyslipidemia Left adrenal mass Reportedly discovered in 2014 with negative workup for pheochromocytoma. Lumbar spondylosis Osteoarthritis Paraparesis Peripheral neuropathy Tobacco abuse Surgical History Surgical History (Updated 01/28/21 @ 12:43 by Hannah Quesada NP) History of basal cell carcinoma excision Excised from the left nasal bridge. History of coronary artery stent placement (~11/2014) Bare-metal stent to mid LAD. History of left hip replacement (~2014) around 2017 History of lumbar surgery Family History Family History Father Acute myocardial infarction at age 57. Mother Breast cancer Social History Social History Social History: Surrogate decision maker: Jose Bentley, . Code status: Full code. Smoking packs per day: 0.5 Smoking cigarettes per day: 10.0 Smoking status: Former smoker Tobacco type: cigarettes Second hand tobacco smoke exposure: Yes Additional smoking assessment comments: Patient has an approximate 35-lwui-wzfw smoking history. Alcohol intake: never Substance use: never Substance use type: does not use Additional living arrangements comments: Lives with her spouse in [place]. 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 Gender identity (if verbalized by the patient): Female Spiritual care concerns: No Exam Const: General: no acute distress and alert Orientation/consciousness: patient oriented x3 Eyes: EOM: EOMs intact bilaterally Resp: Effort & Inspection: normal respiratory effort and no retractions Auscultation: clear to auscultation bilaterally Cardio: Rate: regular rate Rhythm: regular rhythm Heart sounds: no murmurs GI: GI Palp: Yes Soft to palpation, No Tenderness to palpation present (GI) and No Guarding due to palpation present (GI) Auscultation: normal bowel sounds Skin: General skin exam: normal color Rashes: no rashes Other: healed midline lumbar scar Neuro: General: patient oriented x3, mo
[2021-04-04 13:28] LABS: Basophils Percent Auto 0.5 % (0.2-1.2); Eosinophils Absolute Auto 0.2 K/mm3 (0-0.3); Eosinophils Percent Auto 3.1 % (0-4.4); Hematocrit 36.9 % (37.0-47.0); Hemoglobin 11.8 g/dL (12.0-15.0); Immature Granulocyte Absolute 0.03 K/mm3 (0.00-0.031); Immature Granulocyte Percent A 0.5 % (0-0.5); Lymphocytes Absolute Auto 0.58 K/mm3 (0.9-3.2); Lymphocytes Percent Auto 9.3 % (18.3-44.2); Mean Corpuscular Hemoglobin 27.1 pg (26-34); Mean Corpuscular Volume 84.8 fl (80-100); Mean Platelet Volume 8.9 fl (7.4-10.4); Monocytes Absolute Auto 0.7 K/mm3 (0.1-0.6); Monocytes Percent Auto 11.6 % (2.6-8.5); Neutrophils Absolute Auto 4.7 K/mm3 (1.3-6.7); Platelet Count Result 346 k/mm3 (150-375); Red Blood Count 4.35 M/mm3 (4.2-5.4); Red Cell Distribution Width 15.6 % (11.5-14.5); White Blood Count 6.2 K/mm3 (4.5-10.0)
[2021-04-04 14:05] LABS: Alanine Aminotransferase 20 U/L (4-35); Alkaline Phosphatase 96 U/L (38-126); Anion Gap 11 mmol/L (8-16); Aspartate Amino Transferase 33 U/L (14-36); Bilirubin,Total 0.2 mg/dL (0.2-1.3); Blood Urea Nitrogen 26 mg/dL (7-17); Carbon Dioxide 23 mmol/L (22-30); Chloride 100 mmol/L (98-107); Estimated CRCL calculation 38 ml/min; Estimated Glomerular Filt Rate 48; Glucose 120 mg/dL (65-110); Potassium 4.4 mmol/L (3.4-5.0); Sodium 134 mmol/L (137-145)
[2021-04-04] MEDS: SODIUM CHLORIDE 0.9% IV 1,000 ML 999 ML IV CONT (14:52)
[2021-04-04 16:08] LABS: Add Urine Microscopic? YES; Appearance Urine Clear (Clear); Bilirubin Urine Negative (Negative); Blood Urine Negative (Negative); Color Urine Yellow (Yellow); Glucose Urine UA Negative (Negative); Ketones Urine Negative (Negative); Leukocyte Esterase Ur Negative LEU/UL (Negative); Nitrate Urine Negative (Negative); Protein Urine 2+ mg/dL (Negative); Specific Grav Ur 1.025 (1.001-1.035); Squamous Epithelial Cell Urine Rare /hpf (Few); Urobilinogen Urine Negative mg/dL (<2.0); WBC Urine 0-3 /hpf
[2021-04-04 16:27] VITALS: BP 210/100; BP 258/103; PULSE 75; RESP 18; O2SAT 98
--- NOTE | 2021-04-04 16:28 | PC.NURSE ---
Pts blood pressure elevated. 258/[address] Lima of this.
[2021-04-04 17:01] VITALS: PULSE 74
[2021-04-04] MEDS: hydrALAZINE HCL 50 MG TABLET 100 MG PO (17:01)
[2021-04-04] MEDS: LABETALOL HCL 100 MG TABLET 200 MG PO (17:01)
== END 2021-04-04 17:11 | disposition home or self-care (01) ==
LOC: ANHED 12:38
PROVIDERS: Emergency Provider General Practice; PCP Family Medicine
DX: G89.29 Other chronic pain (principal); M54.9 Dorsalgia, unspecified; E86.0 Dehydration; R53.1 Weakness; F41.9 Anxiety disorder, unspecified; I25.10 Atherosclerotic heart disease of native coronary artery without angina pectoris; E11.42 Type 2 diabetes mellitus with diabetic polyneuropathy; E78.5 Hyperlipidemia, unspecified; M19.90 Unspecified osteoarthritis, unspecified site; Z87.891 Personal history of nicotine dependence; Z95.5 Presence of coronary angioplasty implant and graft
CPT/HCPCS: 36415; 51701; 71046; 71260; 72100; 80053; 81001; 85025; 93005; 96360; 99284; A9270; J7030; Q9967

== ENCOUNTER 2021-11-19 08:01 | Inpatient (IN) | payer MEDICARE, SELFPAY ==
[2021-11-19] VITALS (31 sets, daily range): BP systolic 114–234; BP diastolic 36–80; PULSE 51–88; RESP 12–27; TEMP 36.2–37.2; O2SAT 83–100; BMI 29.9
--- NOTE | ~2021-11-19 | MR_ITS ---
EXAMINATION: MR knee LT wo con DATE: 11/21/2021 13:03 INDICATION: Distal femur lesion. TECHNIQUE: Magnetic resonance imaging (MRI) of the left knee was performed without intravenous contra st. Sequences included axial and coronal PD-weighted FS FSE. The patient refused additional imaging. COMPARISON: Skeletal survey 11/20/2021 FINDINGS: Medial compartment: There is a tear of medial meniscus involving the body and posterior horn. There is shallow partial-th ickness cartilage loss of tibial condyle. There is partial-thickness cartilage loss of femoral condyl e, deep at the central articular surface. Lateral compartment: There is a tear of lateral meniscus involving at least the body segment. There is shallow partial-thi ckness cartilage loss of femoral condyle and tibial condyle. Patellofemoral compartment: There is deep partial thickness cartilage loss of patellar medial and lateral facets. The trochlear c artilage is not well evaluated without sagittal images. Ligaments and tendons: The anterior and posterior cruciate ligaments are not well evaluated without sagittal images. There a re changes of prior sprains of medial collateral ligament and fibular collateral ligament characteriz ed by thickening and increased signal intensity approximately. There is mild patellar tendinopathy. Fluid: There is a large knee joint effusion. There is widespread edema of the soft tissues including muscula ture and fat. Osseous/other: In lateral femoral metaphysis, there is a 2.9 x 2.3 x 2.4 cm mass that demonstrates mildly increased PD-weighted signal intensity relative to bone marrow. IMPRESSION: 1. 3.4 cm mass in distal femoral metaphysis. The differential diagnosis is broad and includes metasta tic disease, multiple myeloma, lymphoma, primary malignancy, brown tumor, giant cell tumor, and focal osteopenia. The patient stopped the exam early. Consider repeat MRI without and with contrast to ass ess for fat content if the patient is willing and able. 2. No fracture. 3. Moderate chondrosis of medial and patellofemoral compartments and mild chondrosis of lateral mary kate rtment. 4. Tears of medial and lateral menisci. 5. Large knee joint effusion. Reviewed, dictated and finalized at location A. IMPRESSION: 1. 3.4 cm mass in distal femoral metaphysis. The differential diagnosis is broa d and includes metastatic disease, multiple myeloma, lymphoma, primary malignan cy, brown tumor, giant cell tumor, and focal osteopenia. The patient stopped th e exam early. Consider repeat MRI without and with contrast to assess for fat c ontent if the patient is willing and able. 2. No fracture. 3. Moderate chondrosis of medial and patellofemoral compartments and mild chond rosis of lateral compartment. 4. Tears of medial and lateral menisci. 5. Large knee joint effusion.
--- NOTE | ~2021-11-19 | XR_ITS ---
XR chest 1V portable DATE: 11/26/2021 08:44 INDICATION: Hypoxia. Pulmonary edema. TECHNIQUE: Portable AP chest on 11/26/2021 at 0838 hours COMPARISON: 11/25/2021 portable AP chest at 1415 hours 11/2021 CTA chest FINDINGS: This is a limited single portable view with considerable rotation of the patient to the rig ht. There is right lung volume loss with extensive infiltrate and/or atelectasis. There is left perihilar and lower lung zone infiltrate. Bilateral pneumonia and pulmonary edema are c onsiderations. Cardiomegaly. Small pleural effusions are suggested. Pulmonary vascular congestion is noted. There ar e Rohini B-lines suggesting pulmonary interstitial edema. Diffuse osteopenia. Prominent degenerative spurring of the thoracic spine. Osteoarthritis at the glenohumeral joints. IMPRESSION: Bilateral infiltrates and/atelectasis, right greater than left; diffusion diagnosis inclu zaheer pneumonia, pulmonary edema Bilateral mild pleural effusions Cardiomegaly, pulmonary vascular congestion, pulmonary interstitial edema Reviewed, dictated and finalized at location B. IMPRESSION: Bilateral infiltrates and/atelectasis, right greater than left; dif fusion diagnosis includes pneumonia, pulmonary edema Bilateral mild pleural effusions Cardiomegaly, pulmonary vascular congestion, pulmonary interstitial edema
--- NOTE | ~2021-11-19 | XR_ITS ---
EXAMINATION: XR chest 1V portable INDICATION: Generalized malaise TECHNIQUE: Portable AP chest at 0831 hours COMPARISON: 04/04/2021 FINDINGS: The patient is rotated. Cardiomegaly is noted. There are opacities of the mid and lower juan g zones. Bilateral pleural effusions are suggested. There is no pneumothorax. IMPRESSION: 1. Cardiomegaly. 2. Opacities of the mid and lower lung zones, consistent with pneumonia/or pulmonary edema. 3. Likely bilateral pleural effusions. Reviewed, dictated and finalized at location A. IMPRESSION: 1. Cardiomegaly. 2. Opacities of the mid and lower lung zones, consistent with pneumonia/or pulm onary edema. 3. Likely bilateral pleural effusions.
--- NOTE | ~2021-11-19 | MR_ITS ---
EXAMINATION: MR brain/brain stem wo/w con DATE: 11/20/2021 18:05 INDICATION: Confusion. Left-sided drift. TECHNIQUE: Magnetic resonance imaging (MRI) of the brain and brainstem was performed without and with 17 mL MultiHance intravenous contrast. COMPARISON: Brain MRI 01/28/2020 FINDINGS: There are scattered areas of nonspecific increased T2-weighted signal intensity in the cere bral white matter. There is no intracranial hemorrhage, acute infarction, or abnormal intracranial ma ss lesion. The ventricles are normal in size. There is mild mucosal thickening paranasal sinuses. The mastoid air cells are normal. The orbits are normal. IMPRESSION: 1. Moderate nonspecific cerebral white matter disease, which likely represents chronic small vessel i schemic disease, mildly worsened from 01/28/2020. Reviewed, dictated and finalized at location A. IMPRESSION: 1. Moderate nonspecific cerebral white matter disease, which likely represents chronic small vessel ischemic disease, mildly worsened from 01/28/2020.
--- NOTE | ~2021-11-19 | XR_ITS ---
EXAMINATION: BONE SURVEY/METASTATIC SURVEY DATE: 11/20/2021 INDICATION: Lytic lesion at the left femur suspicious for multiple myeloma. TECHNIQUE: A skeletal survey was performed including AP views of the chest, abdomen and pelvis; AP an d lateral/lateral swimmers views of the cervical, thoracic and lumbar spine; lateral view of the skul l, and AP and lateral views of the appendicular skeleton excluding the hands and feet. COMPARISON: CT chest abdomen and pelvis and left knee radiographs dated 11/19/2021 FINDINGS: 5 mm anterolisthesis C3 on C4. Degenerative skeletal changes including cervical, thoracic and lumbar spondylosis and polyarticular osteoarthritis throughout the appendicular skeleton. This is most sever e at the right glenohumeral joint, right knee and at the radial aspect of the bilateral carpi. Left t otal hip arthroplasty. Combined instrumented anterior and posterior spinal fusion at L3-L5. Scattered enthesophytes and enthesopathic ossification at multiple sites of ligamentous and tendinous insertio n. Scattered atherosclerotic calcifications along the aorta and involving multiple arteries in the pe lvis extending into the bilateral thighs. Single 3.5 x 3.4 x 2.6 cm lytic lesion with lytic lesion at the supratrochlear distal left femur with relatively narrow but not clearly defined margins. There appears to be some erosion of the overlying anterior cortex affected the trochlear groove. Increased density at the suprapatellar pouch which co uld represent either small knee joint effusion, synovitis which is extraosseous extension of the lyti c bone lesion. No other suspicious bone lesions identified. IMPRESSION: 1. Single 3.5 cm lytic lesion at the distal left femur with at least moderately aggressive appearing margins, potentially with some more aggressive cortical erosion anteriorly which is suspicious for ma lignancy with differential including metastatic disease, multiple myeloma, lymphoma or primary bone c ancer although there is no evident matrix to more specifically suggest the latter. Potential benign e tiologies would include infection with osteomyelitis, brown tumor, large geode or atypical metaphysea l predominant extension of a giant cell tumor. This would likely require biopsy for pathologic correl ation. Given the location at the knee and potential for extraosseous extension would recommend orthop edic oncology consultation prior to any attempt at biopsy. Pre and postcontrast MRI would also be hel pful to assess for any extraosseous involvement. 2. No other suspicious bone lesions identified. Could also consider bone scan to assess for any other occult disease although bone scan can be insensitive in the setting of primarily lytic bone lesions. Reviewed, dictated and finalized at location A. IMPRESSION: 1. Single 3.5 cm lytic lesion at the distal left femur with at least moderately aggressive appearing margins, potentially with some more aggressive cortical e rosion anteriorly which is suspicious for malignancy with differential includin g metastatic disease, multiple myeloma, lymphoma or primary bone cancer althoug h there is no evident matrix to more specifically suggest the latter. Potential benign etiologies would include infection with osteomyelitis, brown tumor, lar ge geode or atypical metaphyseal predominant extension of a giant cell tumor. T his would likely require biopsy for pathologic correlation. Given the location at the knee and potential for extraosseous extension would recommend orthopedic oncology consultation prior to any attempt at biopsy. Pre and postcontrast MRI would also be helpful to assess for any extraosseous involvement. 2. No other suspicious bone lesions identified. Could also consider bone scan t o assess for any other occult disea
--- NOTE | ~2021-11-19 | XR_ITS ---
EXAMINATION: XR chest 1V portable Exam Date/Time: 11/25/2021 14:15 CDT CLINICAL HISTORY: hypoxia Comparison: None available. RESULT: Lines, tubes, and devices: None. Lungs and pleura: Left lung unchanged with minimal basal atelectasis/consolidation and possible trac e effusion. Increasing right pulmonary opacities, volume loss, and small right effusion. Cardiomediastinal silhouette: Stable but partially obscured cardiomediastinal silhouette. Other: No acute osseous or upper abdominal finding. IMPRESSION: Worsening right pulmonary opacities. Increasing small right pleural effusion. Reviewed, dictated and finalized at location K.
--- NOTE | ~2021-11-19 | US_ITS ---
EXAMINATION: US venous doppler [facility] DATE: 11/19/2021 10:13 INDICATION: Left lower limb pain and swelling TECHNIQUE: Pryor scale images without and with compression and Doppler images of the left lower extrem ity veins were obtained. COMPARISON: None FINDINGS: The left common femoral vein, profunda femoral vein, femoral vein, popliteal vein, peroneal trunk, posterior tibial veins, and greater saphenous vein are patent. IMPRESSION: 1. Patent left lower extremity veins. No evidence of deep venous thrombosis. Reviewed, dictated and finalized at location A.
--- NOTE | ~2021-11-19 | CT_ITS ---
EXAMINATION: CT chest abdomen pelvis wo con DATE: 11/19/2021 11:20 INDICATION: Generalized malaise and not feeling well. Assess for malignancy. TECHNIQUE: Computed tomography (CT) of the chest, abdomen, and pelvis was performed without intraveno us contrast. Automated exposure control and iterative reconstruction technique were employed. The dos e-length product was 1373.03 mGy-cm. COMPARISON: Chest CT dated 04/04/[address] abdomen and pelvis dated 01/27/2020 FINDINGS: CHEST CT: Mild emphysema. . Small left and moderate-sized right posterior layering pleural effusions. Dependent compressive atelectasis in the bilateral lower lobes with additional discoid atelectasis in the ling aba and right middle lobe. Groundglass opacities and centrilobular nodules in portions of the aerated right lower and middle lobes which is more concerning for pneumonia. Cardiomegaly. Atherosclerotic c oronary artery calcifications. Aortic valve and mitral annular calcification. No pericardial effusion . Atherosclerotic calcification along the normal caliber thoracic aorta. Unchanged mild mediastinal l ymphadenopathy. Small sliding-type hiatal hernia. Bilateral old rib fractures. ABDOMEN/PELVIS CT: There is mild diffuse gallbladder wall thickening with haziness to the fat abutting the gallbladder. Focal adenomyomatosis at the tip of the gallbladder fundus. Hepatic and splenic calcifications consis tent with old granulomatous disease. Pancreas and right adrenal gland are normal. 7.2 x 5.7 cm left r enal mass without significant change since 01/27/2020 at which time the mass measured 6.7 x 5.6 cm. Th e mass contains small calcifications and small amount of macroscopic fat consistent with myelolipoma. A couple nonobstructing right renal stones the largest measuring 3 mm at a lower pole calyx. There i s mild scattered cortical atrophy of both kidneys. Couple small left renal cysts. There is moderate c olonic diverticulosis with a sigmoid predominance. There is no adjacent inflammatory change to sugges t diverticulitis. Small bowel and appendix are normal. Bladder, anteverted uterus and bilateral adnex a are unremarkable. Very small amount of ascites scattered throughout the abdomen and pelvis. Promine nt body wall edema most prominent flanks and small amount of retroperitoneal edema in the presacral s pace. There is calcified atherosclerosis of the aorta and many of the other arteries. No interval cindy nge in mild periportal edema. Combined instrumented anterior and posterior spinal fusion at L3-L5 wit h interbody bone graft cages at both levels and bilateral vertical porsha and pedicle screw fixation. Le ft total hip arthroplasty. Moderate right hip osteoarthritis. IMPRESSION: 1. Patchy lung disease in the right middle and lower lobes which is concerning for pneumonia. 2. Small left and moderate sized right pleural effusions. 3. Mild emphysema. 4. Cardiomegaly. 5. No significant change in mild mediastinal and periportal lymphadenopathy which is likely reactive. 6. Focal adenomyomatosis at the tip of the gallbladder fundus with more diffuse gallbladder wall thic kening and subtle haziness to the pericholecystic fat which could be seen with acute cholecystitis bu t could also be seen with heart, liver or renal disease or other generalized edema forming states. Co rrelate for Winston and if clinically indicated could consider either right upper quadrant ultrasound or HIDA scan for further evaluation. 7. Small sliding-type hiatal hernia. Reviewed, dictated and finalized at location A. IMPRESSION: 1. Patchy lung disease in the right middle and lower lobes which is concerning for pneumonia. 2. Small left and moderate sized right pleural effusions. 3. Mild emphysema. 4. Cardiomegaly. 5. No significant cindy
--- NOTE | ~2021-11-19 | XR_ITS ---
EXAMINATION: XR knee LT 3V DATE: 11/19/2021 09:55 INDICATION: Left knee pain. TECHNIQUE: 3 views of left knee were obtained. COMPARISON: None. FINDINGS: Bone alignment is normal. There is a nondisplaced fracture of cortex of lateral femoral met aphysis. There is a 3.1 cm aggressive lytic lesion in distal femoral metaphysis anteriorly. There is mild osteoarthritis of medial, lateral, and patellofemoral compartments. There is a small knee joint effusion. IMPRESSION: 1. Fracture of lateral cortex of distal femoral metaphysis. 2. Aggressive lytic lesion in distal femoral metaphysis suspicious for multiple myeloma or metastatic disease. 3. Mild left knee osteoarthritis. 4. Small left knee joint effusion. Reviewed, dictated and finalized at location B.
--- NOTE | ~2021-11-19 | BM_ITS ---
EXAMINATION: CCL bone marrow asp w bx diag ORDER COMPLETED DATE: 11/25/2021 INDICATION: Myeloma TECHNIQUE: A time-out was performed to verify the patient's name, date of , and procedure to b e performed. The procedure including the risks and benefits was discussed with the patient. Risks dis cussed included bleeding, infection, nerve injury and allergic reaction. The patient understood the r isks and agreed to proceed. The skin overlying the right posterior iliac spine was prepped and draped in usual sterile fashion. Anesthetic was administered with 1% lidocaine subcutaneously. Moderate co nscious sedation was achieved with 50 mcg fentanyl IV. An 11 gauge needle was inserted into the ilium with fluoroscopic guidance. Bone marrow was aspirated. An 8 gauge needle was then inserted into the ilium with fluoroscopic guidance. A core bone marrow biopsy was obtained. The needle was removed and the entry site was cleaned and dressed. There were no immediate complications. A total of 44 fluoros copic images were recorded. Fluoroscopy exposure time was 0.1 minutes. Total DAP was 972 mGycm^2 FINDINGS: Real-time fluoroscopy demonstrates the biopsy needle tip overlying the right posterior brenda c spine. IMPRESSION: 1. Successful fluoroscopic guided bone marrow aspiration. 2. Successful fluoroscopic guided bone marrow biopsy. Reviewed, dictated and finalized at location A.
--- NOTE | ~2021-11-19 | US_ITS ---
EXAMINATION: US renal BI DATE: 11/19/2021 17:20 INDICATION: acute kidney injury TECHNIQUE: Multiple grayscale and Doppler ultrasound images of the abdomen were obtained. COMPARISON: CT chest 11/19/2021. FINDINGS: The right kidney measures 10.9 cm. The left kidney measures 11.5 cm. The kidneys demonstrate normal p arenchymal echogenicity.No sonographic evidence of nephrolithiasis. Heterogeneous left superior pole mass measuring up to 7 cm, corresponding to the previously reported myelolipoma. No hydronephrosis. T he bladder is poorly visualized. Bladder wall thickness not measured IMPRESSION: 1. Left renal myolipoma. 2. Poor visualization of the bladder. 3. Otherwise normal renal sonogram findings. Reviewed, dictated and finalized at location K.
--- NOTE | 2021-11-19 08:08 | ECG_ITS ---
Measurements Intervals [place] Rate: 76 P: -23 ME: 140 QRS: 173 QRSD: 146 T: 7 QT: 406 QTc: 457 Interpretive Statements SINUS OR ECTOPIC ATRIAL RHYTHM RIGHT AXIS DEVIATION RIGHT BUNDLE BRANCH BLOCK HIGH LATERAL INFARCT, AGE INDETERMINATE ABNORMAL ECG Electronically Signed On 11-19-2021 8:40:58 CDT by Aryan Gunn D.O.
--- NOTE | 2021-11-19 08:31 | ED.GENADULT ---
HPI - General Adult General Chief complaint: Weakness Stated complaint: not feeling well Time Seen by Provider: 11/19/21 08:12 Source: patient, family and EMS Mode of arrival: EMS Limitations: no limitations History of Present Illness HPI narrative: Patient 76 years old white female brought to the emergency room by ambulance, because of general weakness which gradually getting worse over the last 6 months. Patient is status post lower back surgery June 2021, currently wheelchair bound, last walk using a walker almost 1 month ago. Patient reports intermittent left knee pain, nontraumatic for months. Last night patient developed chills ,this morning was not able to get out of bed as usual because of left knee pain, she denies trauma.. . She denies any fever, nausea, vomiting, chest pain, shortness of breath, or back pain. She reports some scratchy throat, chills, intermittent coughing Patient did not get flu vaccine, has been vaccinated for COVID twice. Patient did not take her medication this morning because she is coming to the emergency room Related Data Home Medications Medication Instructions Recorded Confirmed amlodipine 10 DAILY 11/19/21 atorvastatin 80 DAILY 11/19/21 carbamazepine 100 TID 11/19/21 clopidogrel 75 DAILY 11/19/21 ezetimibe 10 mg DAILY 11/19/21 11/19/21 furosemide 20 DAILY 11/19/21 gabapentin 600 TID 11/19/21 hydralazine 25 DAILY 11/19/21 labetalol 100 TID 11/19/21 lisinopril 40 DAILY 11/19/21 lorazepam 0.5 HS 11/19/21 oxycodone-acetaminophen 5 - 325 TID 11/19/21 oxycodone-acetaminophen 10 PRN 11/19/21 quetiapine 25 HS 11/19/21 spironolactone 11/19/21 Allergies Allergy/AdvReac Type Severity Reaction Status Date / Time No Known Allergies Allergy Verified 11/19/21 08:14 Review of Systems Review of Systems: All systems reviewed & are unremarkable except as noted in HPI and below PMFSH Past Medical History Medical History (Updated 11/19/21 @ 10:38 by Marla Sanchez MD) Anxiety Coronary artery disease Abnormal MPI in 11/2014.Subsequent cardiac catheterization showed high-grade mid LAD stenosis in which a bare-metal stent was placed per Dr. Perez. She is followed in the clinic by Dr. Antonella Edmonds. Diabetes mellitus Dyslipidemia Left adrenal mass Reportedly discovered in 2014 with negative workup for pheochromocytoma. Lumbar spondylosis Osteoarthritis Paraparesis Peripheral neuropathy Pulmonary nodule Tobacco abuse Surgical History Surgical History History of basal cell carcinoma excision Excised from the left nasal bridge. History of coronary artery stent placement (~11/2014) Bare-metal stent to mid LAD. History of left hip replacement (~2014) around 2017 History of lumbar surgery Family History Family History Father Acute myocardial infarction at age 57. Mother Breast cancer Social History Social History Social History: Surrogate decision maker: Jose Maxwelltoshia, . Code status: Full code. Smoking packs per day: 0.5 Smoking cigarettes per day: 10.0 Smoking status: Former smoker Tobacco type: cigarettes Second hand tobacco smoke exposure: Yes Additional smoking assessment comments: Patient has an approximate 28-alkn-cjzi smoking history. Alcohol intake: never Substance use: never Substance use type: does not use Additional living arrangements comments: Lives with her spouse in [place]. 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 Gender identity (if verbalized by the patient): Female Spiritual care concerns: No Exam Narrative: General appearance: Well-developed, well-nourished Skin: Normal color Head: Normocephalic, nontraumatic Eyes: Clear conjunctiva ENT: Oropharynx normal, ears normal, nose normal Neck
[2021-11-19 08:37] LABS: Alveolar/Arterial O2 Gradient 61.7 mmHg; Base Excess ABG -3.7 mEq/l (+/-2.0); Device NASAL CANNULA; Fractional Inspired Oxygen 28 %; Modified Allen's Test Pass; Oxygen Content ABG 14.4 %vol (16.0-22.0); Oxygen Saturation ABG 96.2 % (95.0-100.0); Oxyhemoglobin 94.3 % THb (90.0-100.0); PCO2 ABG 42.2 mmHg (35.0-45.0); PO2 ABG 88.1 mmHg (80.0-100.0); PO2 FiO2 Ratio Arterial Blood 3.15 %; Site Drawn LEFT RADIAL; Total Hemoglobin 10.8 g/dL (12.0-18.0); pH ABG 7.334 (7.350-7.450)
[2021-11-19 08:57] LABS: Basophils Percent Auto 0.4 % (0.2-1.2); Eosinophils Percent Auto 0.5 % (0-4.4); Hematocrit 34.8 % (37.0-47.0); Hemoglobin 9.9 g/dL (12.0-15.0); Immature Granulocyte Absolute 0.06 K/mm3 (0.00-0.031); Immature Granulocyte Percent A 0.7 % (0-0.5); Lymphocytes Absolute Auto 0.65 K/mm3 (0.9-3.2); Lymphocytes Percent Auto 7.6 % (18.3-44.2); Mean Corpuscular HGB Conc 28.4 g/dl (32-36); Mean Corpuscular Hemoglobin 25.5 pg (26-34); Mean Corpuscular Volume 89.7 fl (80-100); Monocytes Absolute Auto 0.7 K/mm3 (0.1-0.6); Monocytes Percent Auto 8.7 % (2.6-8.5); Neutrophils Percent Auto 82.1 % (45.5-73.1); Platelet Count Result 236 k/mm3 (150-375); Red Blood Count 3.88 M/mm3 (4.2-5.4); Red Cell Distribution Width 15.4 % (11.5-14.5); White Blood Count 8.5 K/mm3 (4.5-10.0)
[2021-11-19 09:00] LABS: Lactic Acid Reflex 1.2 mmol/L (0.7-2.0)
[2021-11-19 09:02] LABS: Alanine Aminotransferase 19 U/L (4-35); Albumin Level 3.5 g/dL (3.5-5.1); Alkaline Phosphatase 121 U/L (38-126); Anion Gap 5 mmol/L (8-16); Aspartate Amino Transferase 27 U/L (14-36); Bilirubin,Total 0.5 mg/dL (0.2-1.3); Blood Urea Nitrogen 29 mg/dL (7-17); CRP 5.6 mg/dL (<1.0); Carbon Dioxide 28 mmol/L (22-30); Chloride 108 mmol/L (98-107); Estimated CRCL calculation 34 ml/min; Estimated Glomerular Filt Rate 36; Glucose 113 mg/dL (65-110); Potassium 4.5 mmol/L (3.4-5.0); Sodium 141 mmol/L (137-145)
[2021-11-19 09:07] LABS: INR 1.4; Prothrombin Time 16.5 Seconds (11.1-14.7)
[2021-11-19 09:08] LABS: Partial Thromboplastin Time 32.2 SECONDS (22.3-36.8)
[2021-11-19 09:20] LABS: Hypochromasia 1+ (NORMAL); Ovalocytes 1+ (NORMAL); Platelet Estimate Adequate (Adequate)
[2021-11-19 09:25] LABS: Influenza A QL RT-PCR Negative (Negative); Influenza B QL RT-PCR Negative (Negative); SARS-CoV-2 RNA PCR Negative
[2021-11-19 09:27] LABS: Troponin I 0.059 ng/mL (0.000-0.034)
[2021-11-19] MEDS: MORPHINE SULFATE (*CRX) 4 MG/ML INJ IV PUSH (10:35)
[2021-11-19] MEDS: ONDANSETRON INJ 4 MG/2 ML VIAL IV PUSH (10:35)
[2021-11-19] MEDS: lisinopriL 20 MG TABLET 40 MG PO (10:38)
[2021-11-19] MEDS: amLODIPine BESYLATE 5 MG TABLET 10 MG PO (10:38)
[2021-11-19] MEDS: LABETALOL HCL INJ 100 MG/20 ML VIAL 20 MG IV PUSH (10:41)
--- NOTE | 2021-11-19 12:19 | ADMGEN ---
This patient, Terese Bentley, was admitted to IMU Room 203-01 on 11/19/21 at 1150. Patient/family oriented to hospital policies and general routines including ID bracelet, bed and alarms, visiting hours, pain management, procedures, bathroom and other care routines, personal items, smoking policy, room service/diet, and visiting hours. Information on how to activate the Rapid Response Team has been discussed. Patient/Family are encouraged to report perceived risks to care and to ask questions if they do not understand what they are told or what they should do.
[2021-11-19] MEDS: SODIUM CHLORIDE 0.9% IV 1,000 ML 125 ML IV CONT (12:20)
[2021-11-19] MEDS: ALBUTEROL SULFATE NEB 2.5 MG/0.5 ML INH 5 MG INHALATION ×2 (14:43→14:46)
--- NOTE | 2021-11-19 14:50 | PM.IMHP ---
H&P: HPI History of Present Illness Date/Time: 11/19/21 14:50 Chief Complaint: Not feeling well. Narrative: This is a 76-year-old female with coronary artery disease, hypertension, dyslipidemia, and diabetes presented to the emergency department via EMS from home with multiple complaints and ?not feeling well.? She is not a great historian and as such some of the following is obtained via discussions with her , with the patient's permission. She has vague complaints and reports generalized malaise, decreased appetite, nausea, and weakness. Yesterday she felt cold and was unable to get warm however that has since passed and she has no documented fever. Since having multiple lumbar surgeries (most recent June 2021) she has not been getting up and about much at home and she does not typically walk any farther than 15 ft with the aid of a walker, not so much because of back pain as that improved with surgery but more so due to pain in her left knee. She has been participating in physical therapy though it does not sound as though she has made much headway. This morning she was too weak to get up from bed by herself and her brought her in for evaluation. Blood pressure was 199/60 on arrival in her SpO2 was 83% on room air. said she did not take her antihypertensives this morning after receiving them they have improved. ProBNP was 7660 and she was found to have small left and moderate size right pleural effusions on imaging as well as findings concerning for pneumonia. She does have an occasional nonproductive cough though she denies other symptoms to suggest pneumonia. Left knee x-ray showed a fracture of the lateral cortex of the distal femoral metaphysis as well as an aggressive lytic lesion in the same region suspicious for multiple myeloma or metastatic disease. She denies fall and injury to the knee and she has no known history of malignancy. She has lost about 20 lb recently. Review of Systems Review of Systems: Twelve systems were reviewed. Chills yesterday but no documented fever. She denies headache. No sinus congestion or sore throat. She denies sick contacts. No chest pain or pleuritic pain. She denies significant shortness of breath. No orthopnea paroxysmal nocturnal dyspnea. Occasional lower extremity edema but nothing significant. She denies vomiting and diarrhea. No dysuria. Except as documented, all other systems were reviewed and are negative. [facility] Past Medical History Medical History Anxiety Chronic back pain Coronary artery disease Abnormal MPI in 11/2014.Subsequent cardiac catheterization showed high-grade mid LAD stenosis in which a bare-metal stent was placed per Dr. Perez. She is followed in the clinic by Dr. Antonella Edmonds. Dyslipidemia Left adrenal mass Reportedly discovered in 2014 with negative workup for pheochromocytoma. Lumbar spondylosis Osteoarthritis Peripheral neuropathy Pulmonary nodule Tobacco abuse Type 2 diabetes mellitus Surgical History Surgical History History of basal cell carcinoma excision Excised from the left nasal bridge. History of coronary artery stent placement (~11/2014) Bare-metal stent to mid LAD. History of left hip replacement (~2014) History of lumbar surgery Family History Family History Father Acute myocardial infarction at age 57. Mother Breast cancer Social History Social History Social History: Surrogate decision maker: Jose Bentley, . Code status: Full code. Smoking packs per day: 1.5 Smoking cigarettes per day: 30.0 Years smoked: 20 Smoking pack-years: 30.00 Smoking status: Former smoker Tobacco type: cigarettes Second hand tobacco smoke exposure: Yes Additional smoking assessment commen
--- NOTE | 2021-11-19 15:03 | ECHO_ITS ---
Patient Info Name: Terese Bentley Age: 76 years : 1945 Gender: Female Ht: 67 in Wt: 191 lbs BSA: 2.05 m2 HR: 65 bpm BP: 117 / 55 mmHg Heart Rhythm: Sinus Rhythm Technical Quality: Fair Exam Date: 11/19/2021 4:13 PM Exam Location: [facility] Pulmonary Exam Room: 203 Patient Status: Inpatient Admit Date: 11/19/2021 Staff Ordering Physician: Oly Dozier PA-C Ironer Or Presser: Mehreen Luna RDCS Attending Provider: Erica Mayen MD Referring Physician: Tasia DRUMMOND; Exam Type: CA echo doppler color flow Study Info Indications - elevated troponins htn hld Complete two-dimensional, color flow and Doppler transthoracic echocardiogram is performed. Summary 1. Complete two-dimensional, color flow and Doppler transthoracic echocardiogram is performed. 2. Left ventricular chamber dimension is normal. 3. Left ventricular systolic function is normal, estimated at 65-70%. 4. There is severely increased left ventricular wall thickness. 5. The left ventricular diastolic function is abnormal. 6. Left atrial chamber dimension is moderately enlarged. 7. Right atrial chamber dimension is mildly enlarged. 8. There is moderate aortic valve sclerosis. 9. The mitral valve has thickened leaflets. 10. There is mild to moderate mitral valve stenosis. 11. There is mild mitral valve regurgitation. 12. The mitral valve annulus is severely calcified. 13. There is mild tricuspid valve regurgitation. 14. Severe pulmonary hypertension, estimated pulmonary arterial systolic pressure is 71 mmHg. 15. There is mild pulmonic regurgitation. Left Ventricle Left ventricular chamber dimension is normal. Left ventricular systolic function is normal, estimated at 65-70%. There is severely increased left ventricular wall thickness. The left ventricular diastolic function is abnormal. Right Ventricle Right ventricular chamber dimension is normal. Right ventricular systolic function is normal. Left Atria Left atrial chamber dimension is moderately enlarged. Right Atria Right atrial chamber dimension is mildly enlarged. Atrial Septum Intact interatrial septum visualized by color flow imaging. Aortic Valve The aortic valve is trileaflet. There is moderate aortic valve sclerosis. There is no aortic valve stenosis. There is trace aortic valve regurgitation. Pulmonic Valve The pulmonic valve is normal. There is no pulmonic valve stenosis. There is mild pulmonic regurgitation. Mitral Valve The mitral valve has thickened leaflets. There is mild to moderate mitral valve stenosis. There is mild mitral valve regurgitation. The mitral valve annulus is severely calcified. Tricuspid Valve The tricuspid valve leaflets are normal. There is no significant tricuspid valve stenosis. There is mild tricuspid valve regurgitation. Severe pulmonary hypertension, estimated pulmonary arterial systolic pressure is 71 mmHg. Pericardium/Pleural The pericardium appears normal. Inferior Vena Cava Dilated inferior vena cava with <50% collapse upon inspiration consistent with elevated right atrial pressure, 15 mmHg. Aorta The aortic root size at the sinus of Valsalva is normal. The prox ascending aorta size is normal. There is mild aortic atherosclerosis. Left Ventricular Outflow Tract Name Value Normal
[2021-11-19 15:48] LABS: Creatine Kinase 50 U/L (30-135); Magnesium 2.3 mg/dL (1.6-2.3)
[2021-11-19 15:58] LABS: Transferrin 253 mg/dL (206-381)
[2021-11-19 16:00] LABS: Appearance Urine Clear (Clear); Bilirubin Urine 1+ (Negative); Blood Urine Negative (Negative); Color Urine Yellow (Yellow); Glucose Urine UA Negative (Negative); Ketones Urine Negative (Negative); Leukocyte Esterase Ur Negative LEU/UL (Negative); Nitrate Urine Negative (Negative); Protein Urine 3+ mg/dL (Negative); Specific Grav Ur 1.025 (1.001-1.035); Urobilinogen Urine 0.2 mg/dL (<2.0)
[2021-11-19 16:07] LABS: Bacteria Urine Trace /hpf; Mucus Urine Rare /lpf; Squamous Epithelial Cell Urine Rare /hpf (Few); WBC Urine 0-3 /hpf
[2021-11-19 16:13] LABS: Add Urine Microscopic? YES
[2021-11-19 16:17] LABS: Troponin I 0.053 ng/mL (0.000-0.034)
[2021-11-19 16:20] LABS: NT Pro B Type Natriuretic Pept 7660 pg/mL (5-100)
[2021-11-19 16:34] LABS: Iron 27 ug/dL (37-170)
[2021-11-19 16:41] LABS: Glucose Point of Care 160 mg/dl (65-105)
[2021-11-19 16:44] LABS: Percent Iron Saturation 8 % (20-50)
--- NOTE | 2021-11-19 16:46 | PDONCCN ---
HPI - Date of Consult Date/Time: 11/19/21 16:46 Requesting Physician: Erica Mayen MD Primary Care Provider: Hannah Queasda PIPE CHIPPER - Consult Narrative Reason for consult: Lytic bone lesion Narrative: Terese Bentley is a 76 year old female with history of coronary artery disease, basal cell skin cancer, hypertension and hyperlipidemia presented to the ER with generalized weakness and not feeling well. She was complaining of left lower extremity swelling and pain. She does have some neuropathy involving the left knee. She has lost almost 20 lb weight unintentionally in last 6 months duration. Lower extremity Doppler study of the left leg showed no evidence of DVT. CT chest abdomen and pelvis was performed that showed small left and moderate right-sided pleural effusion with mild mediastinal and periportal lymphadenopathy likely reactive. Knee x-ray showed aggressive lytic lesion in the distal femoral metaphysis suspicious for multiple myeloma or metastatic disease. Review of Systems - Review of Systems All systems reviewed & are unremarkable except as noted in [facility] and [facility] Medical History: Medical History (Last Updated 11/19/21 @ 14:55 by Oly Dozier PA-C) Anxiety Chronic back pain Coronary artery disease Abnormal MPI in 11/2014.Subsequent cardiac catheterization showed high-grade mid LAD stenosis in which a bare-metal stent was placed per Dr. Perez. She is followed in the clinic by Dr. Antonella Edmonds. Dyslipidemia Left adrenal mass Reportedly discovered in 2014 with negative workup for pheochromocytoma. Lumbar spondylosis Osteoarthritis Peripheral neuropathy Pulmonary nodule Tobacco abuse Type 2 diabetes mellitus Surgical History: Surgical History (Last Updated 11/19/21 @ 14:55 by Oly Dozier PA-C) History of basal cell carcinoma excision Excised from the left nasal bridge. History of coronary artery stent placement Onset Date: ~11/2014 Bare-metal stent to mid LAD. History of left hip replacement Onset Date: ~2014 History of lumbar surgery Family History: Family History (Last Reviewed 11/19/21 @ 14:55 by Oly Dozier PA-C) Father Acute myocardial infarction at age 57. Mother Breast cancer - Social History Social History: Social History (Last Updated 11/19/21 @ 14:55 by Oly Dozier PA-C) Alcohol Use: Alcohol intake: never Substance Use: Substance use: never Substance use type: does not use Others: Spiritual care concerns: No Smoking Status: Smoking status: Former smoker Tobacco type: cigarettes Second hand tobacco smoke exposure: Yes Smoking Pack-years: Smoking packs per day: 1.5 Smoking cigarettes per day: 30.0 Years smoked: 20 Smoking pack-years: 30.00 Comments: Additional smoking assessment comments: Patient has an approximate [id number] smoking history. Meds Home Medications Medication Instructions Recorded Confirmed Type amlodipine 10 mg PO DAILY 11/19/21 11/19/21 History atorvastatin 80 mg PO HS 11/19/21 11/19/21 History carbamazepine 100 mg PO Q8H 11/19/21 11/19/21 History clopidogrel 75 mg PO DAILY 11/19/21 11/19/21 History docusate sodium [Stool Softener] See Rx Instructions .ROUTE .COMPLEX 11/19/21 11/19/21 History ezetimibe 10 mg HS 11/19/21 11/19/21 History gabapentin 600 mg PO Q8H 11/19/21 11/19/21 History hydralazine 25 mg PO TID 11/19/21 11/19/21 History labetalol 100 mg PO Q8H 11/19/21 11/19/21 History lisinopril 40 mg PO DAILY 11/19/21 11/19/21 History lorazepam 0.5 mg PO HS 11/19/21 11/19/21 History melatonin 20 mg PO HS PRN 11/19/21 11/19/21 History naproxen sodium [Aleve] 220 mg PO Q8H PRN 11/19/21 11/19/21 History oxycodone-acetaminophen 1 tablet PO Q4H PRN 11/19/21 11/19/21 History quetiapine 25 mg PO HS 11/19/21 11/19/21 History spironolactone 25 mg PO DAILY 11/19/21 11/19/21 History Allergies Allergy/AdvReac Type Severity Reac
[2021-11-19 16:52] LABS: Procalcitonin 0.2 ng/mL
[2021-11-19 16:57] LABS: Reticulocyte Percent 2.48 % (0.7-4.3)
[2021-11-19 16:58] LABS: Immature Reticulocyte Fraction 18.2 % (3.0-15.9)
[2021-11-19 16:59] LABS: Reticulocyte Hemoglobin Conten 17.8 pg (28.2-35.7); Reticulocytes Absolute 0.09 B/L (32.2-175.7)
[2021-11-19 17:02] LABS: Folic Acid > 20.0 ng/mL (2.76->20)
[2021-11-19] MEDS: DOCUSATE SODIUM 100 MG CAPSULE BY MOUTH ×2 (17:23→21:26)
[2021-11-19] MEDS: hydrALAZINE HCL 25 MG TABLET PO (17:24)
[2021-11-19 18:06] LABS: Hemoglobin A1C 6.2 % (<5.7)
[2021-11-19 18:36] LABS: Troponin I 0.048 ng/mL (0.000-0.034)
[2021-11-19 20:44] LABS: Glucose Point of Care 150 mg/dl (65-105)
[2021-11-19 20:47] LABS: Immunoglobulin A 89 mg/dL (70-400); Immunoglobulin G 617 mg/dL (700-1600); Immunoglobulin M 181 mg/dL (40-230)
[2021-11-19] MEDS: GABAPENTIN 300 MG CAPSULE 600 MG PO (21:26)
[2021-11-19] MEDS: EZETIMIBE 10 MG TABLET BY MOUTH (21:26)
[2021-11-19] MEDS: ATORVASTATIN 40 MG TABLET 80 MG PO (21:26)
[2021-11-19] MEDS: QUEtiapine FUMARATE 25 MG TABLET PO (21:27)
[2021-11-19] MEDS: LABETALOL HCL 100 MG TABLET PO (21:27)
[2021-11-19] MEDS: LORazepam (*CRX) 0.5 MG TABLET PO (21:29)
[2021-11-20] VITALS (24 sets, daily range): BP systolic 133–191; BP diastolic 41–59; PULSE 56–76; RESP 16–24; TEMP 36.3–37.1; O2SAT 90–100
[2021-11-20 05:39] LABS: Basophils Percent Auto 0.6 % (0.2-1.2); Eosinophils Absolute Auto 0.3 K/mm3 (0-0.3); Eosinophils Percent Auto 4.3 % (0-4.4); Hematocrit 33.4 % (37.0-47.0); Immature Granulocyte Absolute 0.03 K/mm3 (0.00-0.031); Immature Granulocyte Percent A 0.5 % (0-0.5); Lymphocytes Absolute Auto 0.69 K/mm3 (0.9-3.2); Lymphocytes Percent Auto 10.9 % (18.3-44.2); Mean Corpuscular HGB Conc 26.9 g/dl (32-36); Mean Corpuscular Hemoglobin 24.9 pg (26-34); Mean Corpuscular Volume 92.5 fl (80-100); Mean Platelet Volume 10.1 fl (7.4-10.4); Monocytes Absolute Auto 0.7 K/mm3 (0.1-0.6); Monocytes Percent Auto 11.2 % (2.6-8.5); Neutrophils Absolute Auto 4.6 K/mm3 (1.3-6.7); Neutrophils Percent Auto 72.5 % (45.5-73.1); Platelet Count Result 205 k/mm3 (150-375); Red Blood Count 3.61 M/mm3 (4.2-5.4); Red Cell Distribution Width 15.2 % (11.5-14.5); White Blood Count 6.3 K/mm3 (4.5-10.0)
[2021-11-20 05:51] LABS: Alanine Aminotransferase 16 U/L (4-35); Albumin Level 3.1 g/dL (3.5-5.1); Alkaline Phosphatase 98 U/L (38-126); Anion Gap 2 mmol/L (8-16); Aspartate Amino Transferase 22 U/L (14-36); Bilirubin,Total 0.3 mg/dL (0.2-1.3); Blood Urea Nitrogen 34 mg/dL (7-17); Calcium 7.6 mg/dL (8.4-10.2); Carbon Dioxide 28 mmol/L (22-30); Chloride 110 mmol/L (98-107); Estimated CRCL calculation 37 ml/min; Estimated Glomerular Filt Rate 40; Glucose 132 mg/dL (65-110); Potassium 4.7 mmol/L (3.4-5.0); Sodium 140 mmol/L (137-145)
[2021-11-20] MEDS: LABETALOL HCL 100 MG TABLET PO ×3 (06:46→21:26)
[2021-11-20] MEDS: GABAPENTIN 300 MG CAPSULE 600 MG PO ×3 (06:46→21:26)
[2021-11-20 06:49] LABS: Hypochromasia 1+ (NORMAL); Ovalocytes 1+ (NORMAL); Platelet Estimate Adequate (Adequate)
[2021-11-20] MEDS: ALBUTEROL SULFATE NEB 2.5 MG/0.5 ML INH 5 MG INHALATION ×3 (07:50→20:41)
[2021-11-20] MEDS: hydrALAZINE HCL 25 MG TABLET PO ×3 (09:15→18:18)
[2021-11-20] MEDS: amLODIPine BESYLATE 5 MG TABLET 10 MG PO (09:16)
[2021-11-20] MEDS: CLOPIDOGREL BISULFATE 75 MG TABLET PO (09:17)
[2021-11-20] MEDS: DOCUSATE SODIUM 100 MG CAPSULE 200 MG BY MOUTH (09:18)
[2021-11-20] MEDS: lisinopriL 20 MG TABLET 40 MG PO (09:18)
[2021-11-20 09:21] LABS: Glucose Point of Care 115 mg/dl (65-105)
--- NOTE | 2021-11-20 10:58 | PM.IMPN ---
Progress Note: A&P Assessment and Plan (1) Essential (primary) hypertension: Code(s): I10 - Essential (primary) hypertension Status: Acute Assessment and Plan: Chart review shows that her hypertension has been historically difficult to control. BP elevated to 234/68. BP better controlled with her medications. Continue home amlodipine 10 mg daily, hydralazine 25 mg t.i.d., labetalol 100 mg q.8hrs, lisinopril 40 mg daily for now. Spironolactone 25 mg daily on hold due to acute kidney injury. Possibly noncompliance? Follow and adjust medications as needed. (2) Elevated troponin: Code(s): R77.8 - Other specified abnormalities of plasma proteins Status: Acute Assessment and Plan: She denies chest pain and has vague complaints of generally feeling unwell. She was hypoxic on admission. EKG reviewed showing sinus rhythm with RAD, Rt BBB and possible old high lateral NM. Troponin was 0.59 and trending down. Echo completed showing EF 65/70%, severe LVH, diastolic dysfunction, moderate MS and severe pulmonary HTN. SBP as high as 234. Suspect elevated Troponin related to severe HTN. Will follow for now. Continue Labetolol, Plavix, and Lipitor. (3) Acute kidney injury: Code(s): N17.9 - Acute kidney failure, unspecified Status: Acute Assessment and Plan: Cr 1.4 on admission. Normal creatinine at baseline. Patient has had poor oral intake the last several days thus may be in part due to dehydration. She received 2500 mL normal saline in ER so fluids not continued. CT scan showing a 7.2 x 5.7 cm left renal mass without significant change since 01/27/20 at which time the mass measured 6.7 x 5.6 cm. The mass contains small calcifications and small amount of macroscopic fat consistent with myelolipoma. A couple nonobstructing right renal stones the largest measuring 3 mm at a lower pole calyx. There is mild scattered cortical atrophy of both kidneys. Couple small left renal cysts. Renal ultrasound showing normal parenchymal echogenicity and no sonographic evidence of nephrolithiasis. Heterogeneous left superior pole mass measuring up to 7 cm, corresponding to the previously reported myelolipoma. No hydronephrosis. The bladder was poorly visualized. Cr 1.3 today. Will follow for now. (4) Pneumonia: Qualifiers: Laterality: unspecified laterality Lung location: lower lobe of lung Pneumonia type: due to unspecified organism Qualified Code(s): J18.9 - Pneumonia, unspecified organism Code(s): J18.9 - Pneumonia, unspecified organism Status: Acute Assessment and Plan: CXR on admission showing cardiomegaly, opacities of the mid and lower lung zones, and bilateral pleural effusions. Chest CT showing R>L posterior layering pleural effusions, dependent compressive atelectasis, and groundglass opacities and centrilobular nodules in right lower and middle lobes concerning for pneumonia. Started on abx. Procalcitonin 0.2. Continue empiric azithromycin and ceftriaxone. BCx NGTD. Sputum to be attempted for culture. Urinary antigens for Legionella and pneumococcus. Wean O2 as tolerated. Bedside swallow eval. (5) Iron deficiency anemia: Code(s): D50.9 - Iron deficiency anemia, unspecified Status: Acute Assessment and Plan: Patietn with a chronic anemia with Hgb 10-11 range. Hgb here was 9.9 and dropped to 9.0. No evidence of acute blood loss. Iron studies consistent with iron deficiency anemia. B12, folate and TSH levels normal. Not microcytic. Platelet count and white count are normal. Start IV iron. (6) Pleural effusion: Code(s): J90 - Pleural effusion, not elsewhere classified Status: Acute Assessment and Plan: Probably not big enough to drain at this juncture. Currently on 2 L nasal cannula. Wean O2 as toelrated. (7) Abnormal findings on diagnostic imaging of gallbladder: Code(s): R93.2 - Abnormal findings on diagnostic imaging o
--- NOTE | 2021-11-20 10:59 | PM.CNGS ---
Assessment and Plan Assessment and plan (1) Abnormal findings on diagnostic imaging of gallbladder: Code(s): R93.2 - Abnormal findings on diagnostic imaging of liver and biliary tract Status: Acute Assessment and Plan: exam benign, CT reviewed, likely secondary to edema from CHF, fluid overload, stef diet, would dc abx for cholecystitis (2) Lytic bone lesion of femur: Code(s): M89.9 - Disorder of bone, unspecified Status: Acute Assessment and Plan: workup as per oncology (3) Type 2 diabetes mellitus: Code(s): E11.9 - Type 2 diabetes mellitus without complications Status: Acute Assessment and Plan: stable, mgmt per primary team History of Present Illness Consult details Consult date: 11/20/21 Reason for consult: other (gallbladder edema) Requesting physician: Erica Mayen MD Narrative: Pt is a 76 y/o F presenting to hospital c/o weakness, poor appetite, fatigue over last few mos. Pt reports a unintentional wt loss of approx 20 lbs during this time. Pt reports weakness worsening and she is having issues even ambulating at this point. Pt reports early satiety and nausea when trying to eat. Pt denies any changes in bowel habits. Pt is quite lethargic during my exam and thus difficult to obtain history. Of note, pt denies any abdominal pain. Review of Systems Constitutional: Constitutional: Reports anorexia, Denies chills, Reports daytime sleepiness, Reports fatigue, Denies fever(s), Denies headache(s), Denies increased appetite, Reports lethargy, Reports poor appetite, Reports weakness and Reports weight loss Eyes: Eyes: Reports no additional eye complaints ENT: Reports system reviewed and no additional complaints, except as documented Cardiovascular: Cardiovascular: Reports edema and Reports dyspnea Respiratory: Respiratory: Reports dyspnea and Reports dyspnea on exertion Gastrointestinal: Gastrointestinal: Reports as per HPI, Denies abdominal pain, Denies bloating, Denies GI cramping, Reports early satiety, Denies diarrhea, Denies loose stools, Reports nausea and Denies vomiting Genitourinary: Genitourinary: Reports no additional female genitourinary complaints Musculoskeletal: Musculoskeletal: Reports muscle weakness Integumentary/Breasts: Skin/Breast: Reports system reviewed and no additional complaints, except as docu Neurologic: Reports system reviewed and no additional complaints, except as documented Psychiatric: Psychiatric: Reports no additional psychiatric complaints Endocrine: Endocrine: Reports no additional endocrine complaints Hematologic/Lymphatic: Hematologic/Lymphatic: Reports no additional hematologic/lymphatic complaints Allergic/Immunologic: Allergic/Immunologic: Reports no additional allergic/immunologic complaints FOR[facility]LY [facility] Past Medical History Medical History Anxiety Chronic back pain Coronary artery disease Abnormal MPI in 11/2014.Subsequent cardiac catheterization showed high-grade mid LAD stenosis in which a bare-metal stent was placed per Dr. Perez. She is followed in the clinic by Dr. Antonella Edmonds. Dyslipidemia Left adrenal mass Reportedly discovered in 2014 with negative workup for pheochromocytoma. Lumbar spondylosis Osteoarthritis Peripheral neuropathy Pulmonary nodule Tobacco abuse Type 2 diabetes mellitus Surgical History Surgical History History of basal cell carcinoma excision Excised from the left nasal bridge. History of coronary artery stent placement (~11/2014) Bare-metal stent to mid LAD. History of left hip replacement (~2014) History of lumbar surgery Family History Family History Father Acute myocardial infarction at age 57. Mother Breast cancer Social History Social History So
[2021-11-20] MEDS: DOCUSATE SODIUM 100 MG CAPSULE BY MOUTH ×3 (12:44→21:26)
[2021-11-20 12:47] LABS: Glucose Point of Care 308 mg/dl (65-105)
[2021-11-20] MEDS: INSULIN ASPART (*BKC) 100 UNITS/ML SUB-Q (12:52)
--- NOTE | 2021-11-20 13:30 | PM.CNOR ---
Assessment and Plan Assessment and plan (1) Lytic bone lesion of femur: Code(s): M89.9 - Disorder of bone, unspecified Status: Acute Assessment and Plan: Initial radiographs in the emergency room reveal a fracture of the lateral cortices of the distal femoral metaphysis as well as an aggressive lytic lesion in the distal femoral metaphysis suspicious for multiple myeloma or metastatic disease. A skeletal survey reveals a single 3.5 cm lytic lesion at the distal left femur with at least moderately aggressive appearing margins, potentially with some more aggressive cortical erosions anteriorly which is suspicious for malignancy with them for initials including metastatic disease, multiple myeloma, lymphoma or primary bone cancer. Patient is currently being followed by oncology. Oncology performing initial myeloma workup. Patient would benefit from an orthopaedic oncology evaluation at [facility] with Dr. Reyez. It has been recommended to consider a pre and postcontrast MRI to assess for any extraosseous involvement. Will determine if testing should be done prior to discharge or upon work up with orthopedic oncology service. Patient to be fitted with a knee immobilizer and be NWB of the LLE. Pre and postcontrast MRI would also be helpful to assess for any extraosseous involvement. Radiographic findings and current recommendations as well as referral recommendation discussed with the patient and her who verbalize understanding. History of Present Illness HPI Consult date: 11/20/21 Consult reason: other (Bone lesion) Chief complaint: Pneumonia/General weakness/LOCO Narrative: 76-year-old female admitted to the emergency room via EMS due to chills and generalized body aches per the patient and her . The patient herself is not a great historian and therefore some of the information was discussed with her at the bedside today. Per the , the patient initially had surgery in May for a slipped disc in her lumbar spine. She has been undergoing several rounds of formal physical therapy since that time. Over the last 2 months, but she has had increasing weakness in the lower extremities. She is requiring the use of a wheelchair and standing intermittently for transfers only. She has been complaining of left knee pain as of late but the exact amount of time cannot be agreed upon between the patient and her . Upon arrival to the emergency room, the patient had elevated blood pressure and low O2 sats. She was found to have a pleural effusion and radiographs of the left knee were obtained due to continued complaints of left knee pain. Left knee radiographs revealed a fracture of the lateral cortex of the distal femoral metaphysis as well as an aggressive lytic lesion in the distal femoral metaphysis suspicious for multiple myeloma or metastatic disease. The patient and are unaware of any history of or previous cancer diagnoses. Orthopedic consult requested by the emergency room physician for further evaluation. Oncology is also following the patient at this time. Review of Systems Constitutional: Constitutional: Reports chills, Reports poor appetite, Reports weakness and Reports weight loss Eyes: Eyes: Reports no additional eye complaints and Denies change in vision ENT: Reports system reviewed and no additional complaints, except as documented and Reports Normal hearing present Cardiovascular: Cardiovascular: Denies chest pain, Denies diaphoresis, Denies leg ulcers and Denies dyspnea on exertion Respiratory: Respiratory: Reports as per HPI Gastrointestinal: Gastrointestinal: Reports no additional gastrointestinal complaints, Denies abdominal pain, Denies constipation, Denies nausea and Denies vomiting Genitourinary: Genitourinary: Denies hematuria and Denies urinary frequency Musculoskeletal: Musculoskeletal: Reports no additional musculoskeletal complaints and Reports as per HPI
[2021-11-20] MEDS: IRON SUCROSE COMPLEX 100 MG in SODIUM CHLORIDE 0.9% IV 50 ML 220 MG IVPB (13:35)
[2021-11-20] MEDS: oxyCODONE/ACETAMINOPHEN (*CRX) 5-325 MG TABLET 1 TABLET PO (14:48)
[2021-11-20] MEDS: oxyCODONE HCL (*CRX) 5 MG TAB IR PO ×2 (14:49→23:30)
[2021-11-20 16:13] LABS: Glucose Point of Care 167 mg/dl (65-105)
[2021-11-20 20:32] LABS: Glucose Point of Care 139 mg/dl (65-105)
[2021-11-20] MEDS: LORazepam (*CRX) 0.5 MG TABLET PO (21:26)
[2021-11-20] MEDS: ATORVASTATIN 40 MG TABLET 80 MG PO (21:26)
[2021-11-20] MEDS: EZETIMIBE 10 MG TABLET BY MOUTH (21:26)
[2021-11-20] MEDS: QUEtiapine FUMARATE 25 MG TABLET PO (21:27)
[2021-11-21] VITALS (25 sets, daily range): BP systolic 170–207; BP diastolic 50–65; PULSE 63–88; RESP 18–24; TEMP 36.8–37.4; O2SAT 93–100
[2021-11-21] MEDS: ALBUTEROL SULFATE NEB 2.5 MG/0.5 ML INH 5 MG INHALATION ×4 (02:50→20:10)
[2021-11-21 05:03] LABS: Basophils Percent Auto 0.6 % (0.2-1.2); Eosinophils Absolute Auto 0.4 K/mm3 (0-0.3); Eosinophils Percent Auto 5.2 % (0-4.4); Hematocrit 34.2 % (37.0-47.0); Hemoglobin 9.6 g/dL (12.0-15.0); Immature Granulocyte Absolute 0.08 K/mm3 (0.00-0.031); Immature Granulocyte Percent A 1.1 % (0-0.5); Lymphocytes Absolute Auto 0.66 K/mm3 (0.9-3.2); Lymphocytes Percent Auto 9.5 % (18.3-44.2); Mean Corpuscular HGB Conc 28.1 g/dl (32-36); Mean Corpuscular Hemoglobin 25.4 pg (26-34); Mean Corpuscular Volume 90.5 fl (80-100); Monocytes Absolute Auto 0.7 K/mm3 (0.1-0.6); Monocytes Percent Auto 9.6 % (2.6-8.5); Neutrophils Absolute Auto 5.2 K/mm3 (1.3-6.7); Platelet Count Result 212 k/mm3 (150-375); Red Blood Count 3.78 M/mm3 (4.2-5.4); Red Cell Distribution Width 15.2 % (11.5-14.5)
[2021-11-21 05:23] LABS: Albumin Level 3.6 g/dL (3.5-5.1); Anion Gap 6 mmol/L (8-16); Blood Urea Nitrogen 31 mg/dL (7-17); Carbon Dioxide 26 mmol/L (22-30); Chloride 108 mmol/L (98-107); Estimated CRCL calculation 40 ml/min; Estimated Glomerular Filt Rate 44; Glucose 102 mg/dL (65-110); Magnesium 2.4 mg/dL (1.6-2.3); Phosphorus 4.1 mg/dL (2.5-4.5); Potassium 4.6 mmol/L (3.4-5.0); Sodium 140 mmol/L (137-145)
[2021-11-21 05:24] LABS: Hypochromasia 1+ (NORMAL); Platelet Estimate Adequate (Adequate)
[2021-11-21] MEDS: LABETALOL HCL 100 MG TABLET PO ×3 (06:37→21:38)
[2021-11-21] MEDS: GABAPENTIN 300 MG CAPSULE 600 MG PO ×3 (06:37→21:38)
[2021-11-21 08:14] LABS: Glucose Point of Care 106 mg/dl (65-105)
--- NOTE | 2021-11-21 08:24 | PM.PNGS ---
Progress Note: A&P Assessment and Plan (1) Abnormal findings on diagnostic imaging of gallbladder: Code(s): R93.2 - Abnormal findings on diagnostic imaging of liver and biliary tract Status: Acute Assessment and Plan: incidental imaging finding likely secondary to overall edema, no s/s cholecystitis, no acute surgical issues, will s/o, call c ?s, issues Subjective Subjective Date/Time Seen: 11/21/21 08:24 no acute issues, no abd pain, stef diet Review of Systems Review of Systems: All systems reviewed & are unremarkable except as noted in HPI and below Exam Const: General: cooperative, comfortable and no acute distress Orientation/consciousness: patient oriented x3 Resp: Auscultation: clear to auscultation bilaterally Cardio: Rate: regular rate Rhythm: regular rhythm GI: Inspection: normal to inspection GI Palp: No abdominal tenderness, Yes Soft to palpation and No Tenderness to palpation present (GI) Objective Data Vital Signs Vital Signs: Vital Signs - 24 hr 11/20/21 10:00 11/20/21 12:00 11/20/21 13:39 Temperature 36.7 C Pulse Rate 73 76 74 Respiratory Rate 20 16 Blood Pressure 155/45 H Pulse Oximetry 90 11/20/21 13:50 11/20/21 14:00 11/20/21 16:00 Temperature 37.1 C Pulse Rate 69 74 73 Respiratory Rate 16 24 H Blood Pressure 133/42 L Pulse Oximetry 91 11/20/21 18:00 11/20/21 20:00 11/20/21 20:44 Temperature 36.8 C Pulse Rate 74 72 65 Respiratory Rate 18 18 Blood Pressure 178/53 H Pulse Oximetry 94 94 11/20/21 20:50 11/20/21 21:26 11/20/21 22:00 Temperature Pulse Rate 65 75 72 Respiratory Rate 18 Blood Pressure Pulse Oximetry 11/20/21 23:37 11/21/21 00:00 11/21/21 02:00 Temperature 37.0 C Pulse Rate 74 63 74 Respiratory Rate 20 20 Blood Pressure 191/59 H Pulse Oximetry 100 100 11/21/21 02:52 11/21/21 03:02 11/21/21 04:00 Temperature 36.8 C Pulse Rate 72 75 75 Respiratory Rate 18 18 20 Blood Pressure 198/55 H Pulse Oximetry 100 11/21/21 05:46 11/21/21 06:37 11/21/21 07:27 Temperature Pulse Rate 78 77 68 Respiratory Rate 18 Blood Pressure Pulse Oximetry 11/21/21 07:28 11/21/21 07:37 Temperature Pulse Rate 68 71 Respiratory Rate 18 Blood Pressure Pulse Oximetry 97 Intake/Output Intake/Output: Intake & Output 11/18/21 11/19/21 11/20/21 11/21/21 23:59 23:59 23:59 23:59 Intake Total 490 930 350 Output Total 500 Balance -10 930 350 Meds/Results Medications: Active Medications Generic Name Dose Route Start Last Admin Trade Name Freq PRN Reason Stop Dose Admin Acetaminophen 650 mg 11/19/21 09:18 Acetaminophen 325 Mg Tablet PO Q4H PRN Mild Pain (1-3) or Fever Albuterol 5 mg 11/19/21 14:00 11/21/21 07:24 Albuterol Sulfate Neb 2.5 Mg/0.5 Ml Inh INHALATION 5 mg Q6HRT MARY LOU Administration Amlodipine Besylate 10 mg 11/20/21 09:00 11/20/21 09:16 Amlodipine Besylate 5 Mg Tablet PO 10 mg DAILY MARY LOU Administration Atorvastatin Calcium 80 mg 11/19/21 21:00 11/20/21 21:26 Atorvastatin 40 Mg Tablet PO 80 mg HS MARY LOU Administration Carbamazepine 100 mg 11/19/21 17:00 11/20/21 18:19 Carbamazepine Chew 100 Mg Chew PO 100 mg TIDWM MARY LOU Administration Clopidogrel Bisulfate 75 mg 11/20/21 09:00 11/20/21 09:17 Clopidogrel Bisulfate 75 Mg Tablet PO 75 mg DAILY MARY LOU Administration Dextrose 12.5 gm 11/19/21 15:04 Dextrose 50% 25 Gm/50 Ml Syringe IV PUSH PRN PRN Hypoglycemia Protocol Docusate Sodium 100 mg 11/19/21 17:00 11/20/21 21:26 Docusate Sodium 100 Mg Capsule BY MOUTH 100 mg TID@1200,1700,2200 MARY LOU Administration Docusate Sodium 200 mg 11/20/21 09:00 11/20/21 09:18 Docusate Sodium 100 Mg Capsule BY MOUTH 200 mg QAM MARY LOU Administration Ezetimibe 10 mg 11/19/21 21:00 11/20/21 21:26 Ezetimibe 10 Mg Tablet BY MOUTH 10 mg HS MARY LOU Administration Gabapent
[2021-11-21] MEDS: hydrALAZINE HCL 25 MG TABLET PO (08:48)
[2021-11-21] MEDS: amLODIPine BESYLATE 5 MG TABLET 10 MG PO (08:48)
[2021-11-21] MEDS: DOCUSATE SODIUM 100 MG CAPSULE 200 MG BY MOUTH (08:49)
[2021-11-21] MEDS: lisinopriL 20 MG TABLET 40 MG PO (08:49)
[2021-11-21] MEDS: CLOPIDOGREL BISULFATE 75 MG TABLET PO (08:49)
[2021-11-21] MEDS: IRON SUCROSE COMPLEX 100 MG in SODIUM CHLORIDE 0.9% IV 50 ML 220 MG IVPB (08:52)
--- NOTE | 2021-11-21 09:31 | PCSTNOTE ---
Please refer to the Bedside Swallow Evaluation in the EMR. Please note, silent aspiration cannot be ruled out at bedside.
[2021-11-21 11:44] LABS: Glucose Point of Care 177 mg/dl (65-105)
--- NOTE | 2021-11-21 12:02 | PM.IMPN ---
Progress Note: A&P Assessment and Plan (1) Essential (primary) hypertension: Code(s): I10 - Essential (primary) hypertension Status: Acute Assessment and Plan: Chart review shows that her hypertension has been historically difficult to control. BP elevated to 234/68 on admission. BP better controlled with her medications but not at goal. We continued home amlodipine 10 mg daily, hydralazine 25 mg t.i.d., labetalol 100 mg q.8hrs, lisinopril 40 mg daily. Spironolactone 25 mg daily on hold due to acute kidney injury. Will advance her hydralazine. Follow. (2) Elevated troponin: Code(s): R77.8 - Other specified abnormalities of plasma proteins Status: Acute Assessment and Plan: She denies chest pain and has vague complaints of generally feeling unwell. She was hypoxic on admission. EKG reviewed showing sinus rhythm with RAD, Rt BBB and possible old high lateral VT. Troponin was 0.59 and trending down. Echo completed showing EF 65/70%, severe LVH, diastolic dysfunction, moderate MS and severe pulmonary HTN. SBP as high as 234. Suspect elevated Troponin related to severe HTN. Will follow for now. Continue Labetolol, Plavix, and Lipitor. (3) Acute kidney injury: Code(s): N17.9 - Acute kidney failure, unspecified Status: Acute Assessment and Plan: Cr 1.4 on admission. Normal creatinine at baseline. Patient has had poor oral intake the last several days thus may be in part due to dehydration. She received 2500 mL normal saline in ER so fluids not continued. CT scan showing a 7.2 x 5.7 cm left renal mass without significant change since 01/27/20 at which time the mass measured 6.7 x 5.6 cm. The mass contains small calcifications and small amount of macroscopic fat consistent with myelolipoma. A couple nonobstructing right renal stones the largest measuring 3 mm at a lower pole calyx. There is mild scattered cortical atrophy of both kidneys. Couple small left renal cysts. Renal ultrasound showing normal parenchymal echogenicity and no sonographic evidence of nephrolithiasis. Heterogeneous left superior pole mass measuring up to 7 cm, corresponding to the previously reported myelolipoma. No hydronephrosis. The bladder was poorly visualized. Cr 1.2 today. Lasix x1. Will follow for now. (4) Pneumonia: Qualifiers: Laterality: unspecified laterality Lung location: lower lobe of lung Pneumonia type: due to unspecified organism Qualified Code(s): J18.9 - Pneumonia, unspecified organism Code(s): J18.9 - Pneumonia, unspecified organism Status: Acute Assessment and Plan: CXR on admission showing cardiomegaly, opacities of the mid and lower lung zones, and bilateral pleural effusions. Chest CT showing R>L posterior layering pleural effusions, dependent compressive atelectasis, and groundglass opacities and centrilobular nodules in right lower and middle lobes concerning for pneumonia. Consider fluid overload with BNP 7660. Bedside swallow evaluation was normal. Started on abx. Procalcitonin 0.2. Continue empiric azithromycin and ceftriaxone. BCx NGTD. Sputum to be attempted for culture. Urinary antigens for Legionella and pneumococcus pending. Wean O2 as tolerated. (5) Pulmonary hypertension: Code(s): I27.20 - Pulmonary hypertension, unspecified Status: Acute Assessment and Plan: Echo shows EF 65-70% with diastolic dysfunction, mild to moderate MV stenosis, mild MV regurgitation and severe pulmonary hypertension (PASP 71 mmHg). Doubt chronic PEs. Doppler of the LE negative for DVTs. Apnea link from January 2020 was normal on 3L. Will repeat apnea link. (6) Iron deficiency anemia: Code(s): D50.9 - Iron deficiency anemia, unspecified Status: Acute Assessment and Plan: Patient with a chronic anemia with Hgb 10-11 range. Hgb here was 9.9 and dropped to 9.0. No evidence of acute blood loss. Iron studies consistent with iron deficiency anemia.
[2021-11-21] MEDS: DOCUSATE SODIUM 100 MG CAPSULE BY MOUTH ×3 (12:10→21:37)
[2021-11-21] MEDS: hydrALAZINE HCL 50 MG TABLET PO ×2 (12:10→17:19)
[2021-11-21] MEDS: FUROSEMIDE INJ 40 MG/4 ML VIAL IV PUSH (14:34)
[2021-11-21 17:34] LABS: Glucose Point of Care 166 mg/dl (65-105)
[2021-11-21] MEDS: ATORVASTATIN 40 MG TABLET 80 MG PO (21:37)
[2021-11-21] MEDS: EZETIMIBE 10 MG TABLET BY MOUTH (21:38)
[2021-11-21] MEDS: QUEtiapine FUMARATE 25 MG TABLET PO (21:38)
[2021-11-21 21:59] LABS: Glucose Point of Care 138 mg/dl (65-105)
[2021-11-21 23:24] LABS: Kappa\\Lambda Light Chains 2.44 (0.26-1.65); Lambda Light Chain 17.6 mg/L (5.7-26.3)
[2021-11-22] VITALS (25 sets, daily range): BP systolic 142–215; BP diastolic 42–70; PULSE 59–88; RESP 12–28; TEMP 36.2–37; O2SAT 90–98
--- NOTE | 2021-11-22 05:04 | PCRCNOTE ---
The patient removed the apnea monitor twice; There was not enough data to process apnea study
[2021-11-22] MEDS: GABAPENTIN 300 MG CAPSULE 600 MG PO ×3 (05:24→21:34)
[2021-11-22] MEDS: hydrALAZINE HCL 50 MG TABLET PO ×3 (05:24→17:47)
[2021-11-22] MEDS: LABETALOL HCL 100 MG TABLET PO ×3 (05:24→21:33)
[2021-11-22 05:57] LABS: Hemoglobin 10.1 g/dL (12.0-15.0); Mean Corpuscular HGB Conc 29.7 g/dl (32-36); Mean Corpuscular Hemoglobin 25.5 pg (26-34); Mean Corpuscular Volume 85.9 fl (80-100); Mean Platelet Volume 9.7 fl (7.4-10.4); Platelet Count Result 239 k/mm3 (150-375); Red Blood Count 3.96 M/mm3 (4.2-5.4); Red Cell Distribution Width 14.8 % (11.5-14.5); White Blood Count 6.5 K/mm3 (4.5-10.0)
[2021-11-22 06:13] LABS: Anion Gap 4 mmol/L (8-16); Blood Urea Nitrogen 24 mg/dL (7-17); Calcium 7.9 mg/dL (8.4-10.2); Carbon Dioxide 33 mmol/L (22-30); Chloride 103 mmol/L (98-107); Estimated CRCL calculation 44 ml/min; Estimated Glomerular Filt Rate 48; Glucose 113 mg/dL (65-110); Potassium 4.2 mmol/L (3.4-5.0); Sodium 140 mmol/L (137-145)
[2021-11-22] MEDS: IRON SUCROSE COMPLEX 100 MG in SODIUM CHLORIDE 0.9% IV 50 ML 220 MG IVPB (08:20)
[2021-11-22 08:24] LABS: Glucose Point of Care 117 mg/dl (65-105)
[2021-11-22] MEDS: DOCUSATE SODIUM 100 MG CAPSULE 200 MG BY MOUTH (08:24)
[2021-11-22] MEDS: amLODIPine BESYLATE 5 MG TABLET 10 MG PO (08:24)
[2021-11-22] MEDS: CLOPIDOGREL BISULFATE 75 MG TABLET PO (08:24)
[2021-11-22] MEDS: lisinopriL 20 MG TABLET 40 MG PO (08:25)
[2021-11-22] MEDS: ALBUTEROL SULFATE NEB 2.5 MG/0.5 ML INH 5 MG INHALATION ×3 (08:40→21:15)
[2021-11-22] MEDS: DOCUSATE SODIUM 100 MG CAPSULE BY MOUTH ×3 (13:11→21:33)
[2021-11-22 13:26] LABS: Glucose Point of Care 180 mg/dl (65-105)
--- NOTE | 2021-11-22 13:57 | PM.IMPN ---
Progress Note: A&P Assessment and Plan (1) Pulmonary hypertension: Code(s): I27.20 - Pulmonary hypertension, unspecified Status: Acute (2) DVT prophylaxis: Code(s): Z29.9 - Encounter for prophylactic measures, unspecified Status: Acute (3) Iron deficiency anemia: Code(s): D50.9 - Iron deficiency anemia, unspecified Status: Acute (4) Lytic bone lesion of femur: Code(s): M89.9 - Disorder of bone, unspecified Status: Acute (5) Essential (primary) hypertension: Code(s): I10 - Essential (primary) hypertension Status: Acute (6) Elevated troponin: Code(s): R77.8 - Other specified abnormalities of plasma proteins Status: Acute (7) Acute kidney injury: Code(s): N17.9 - Acute kidney failure, unspecified Status: Acute (8) Pneumonia: Qualifiers: Laterality: unspecified laterality Lung location: lower lobe of lung Pneumonia type: due to unspecified organism Qualified Code(s): J18.9 - Pneumonia, unspecified organism Code(s): J18.9 - Pneumonia, unspecified organism Status: Acute (9) Type 2 diabetes mellitus: Code(s): E11.9 - Type 2 diabetes mellitus without complications Status: Acute Additional Plan # lytic bone lesion left knee # multiple myeloma? -SPEP, UPEP, light chains ordered -consulted oncologist -patient will need to follow-up with Dr. Hargrove at [facility] orthopedic -left knee MRI consistent with 2.4 cm mass at distal femoral metaphysis, recommendation for MRI with and without contrast to assess fat content # acute hypoxic respiratory failure # community-acquired pneumonia, atypical with ground glass finding? -patient on 3 L oxygen by nasal cannula -ApneaLink was ordered last night however patient removed it -at this time unclear etiology for respiratory failure -with unclear explanation for oxygen requirements and signs of mid and lower lung disease on x-ray patient is on antibiotics -antibiotics: Azithromycin, Rocephin will continue for now -also of note 6 mm right middle lobe subpleural nodule with recommendation for imaging follow-up CT scan 1 year # acute kidney injury -may be secondary to myeloma -held home Aleve which may causing kidney injury -patient ending given 1 dose of Lasix for fluid overload concern # left-sided renal mass suggestive of myelolipoma -patient will need outpatient follow-up # essential hypertension -continue amlodipine 10 mg daily, labetalol 100 mg q.8 hours, hydralazine 25 mg t.i.d. increased to 50 mg t.i.d., lisinopril 40 mg daily -with acute kidney injury held spironolactone -this morning systolic blood pressure 188/60 however improved to 157/43 by the afternoon # elevated troponin -no chest pain symptoms -may be secondary to blood pressure with severe pulmonary hypertension -echocardiogram showing EF 65-70% # iron deficient anemia -patient given IV iron day 3 complete today -chronic anemia hemoglobin 9, no blood loss identified # abnormal finding of gallbladder fundus with haziness of pericholecystic fat -general surgeon consulted with no further workup recommended # other chronic conditions -hyperlipidemia: Continue Lipitor, Zetia -continue carbamazepine -CAD: Continue clopidogrel -peripheral neuropathy: Continue Neurontin -insomnia: Melatonin q.h.s. -anxiety/depression: Seroquel, Ativan -pain control: Oxycodone and [place]rett -type 2 diabetes: Hemoglobin A1c 6.2, SSI, accucheck ACHS Diet: Heart healthy DVT prophylaxis: SCDs Code status: Do not resuscitate Disposition: Pending PT/OT evaluation, likely home 3-4 days Social: Family updated at bedside and daughter Time Spent With Patient Time with patient: 25 - 35 minutes Subjective Date/time seen: 11/22/21 13:57 Patient seen examined. She is very lethargic this morning however perked up by the afternoon. Family updated bedside. Patient is having some difficulty IV access ho
[2021-11-22 16:57] LABS: Glucose Point of Care 148 mg/dl (65-105)
[2021-11-22 17:19] LABS: Pneumococcal Antigen Urine Not Detected (Not Detected)
[2021-11-22 20:22] LABS: Glucose Point of Care 125 mg/dl (65-105)
[2021-11-22] MEDS: QUEtiapine FUMARATE 25 MG TABLET PO (21:33)
[2021-11-22] MEDS: LORazepam (*CRX) 0.5 MG TABLET PO (21:33)
[2021-11-22] MEDS: EZETIMIBE 10 MG TABLET BY MOUTH (21:33)
[2021-11-22] MEDS: ATORVASTATIN 40 MG TABLET 80 MG PO (21:33)
[2021-11-22 22:00] LABS: Legionella pneumophila Ag Ur Not Detected (Not Detected)
[2021-11-23] VITALS (19 sets, daily range): BP systolic 156–190; BP diastolic 43–63; PULSE 55–80; RESP 16–20; TEMP 36.1–36.6; O2SAT 92–100
[2021-11-23 00:50] LABS: Carbamazepine Tegretol 3.4 mcg/mL (4.0-12.0)
--- NOTE | 2021-11-23 02:55 | PCRCNOTE ---
Pt not given 02:00 nebulizer treatment. Pt on sleep study and not to be disturbed.
--- NOTE | 2021-11-23 04:25 | PCRCNOTE ---
For the second night, an ApneaLink was attempted on pt to assess for NAVJOT. Pt removed pulse oximetry probe multiple times during the course of the study and was awake much of the night. There is not enough data to process study.
[2021-11-23] MEDS: LABETALOL HCL 100 MG TABLET PO ×3 (05:33→21:03)
[2021-11-23] MEDS: GABAPENTIN 300 MG CAPSULE 600 MG PO ×3 (05:33→21:02)
[2021-11-23 06:52] LABS: Basophils Percent Auto 0.7 % (0.2-1.2); Eosinophils Absolute Auto 0.4 K/mm3 (0-0.3); Eosinophils Percent Auto 6.2 % (0-4.4); Hematocrit 34.6 % (37.0-47.0); Immature Granulocyte Absolute 0.05 K/mm3 (0.00-0.031); Immature Granulocyte Percent A 0.9 % (0-0.5); Lymphocytes Absolute Auto 0.69 K/mm3 (0.9-3.2); Lymphocytes Percent Auto 12.2 % (18.3-44.2); Mean Corpuscular HGB Conc 28.9 g/dl (32-36); Mean Corpuscular Hemoglobin 25.1 pg (26-34); Mean Corpuscular Volume 86.7 fl (80-100); Mean Platelet Volume 9.5 fl (7.4-10.4); Monocytes Absolute Auto 0.5 K/mm3 (0.1-0.6); Monocytes Percent Auto 9.3 % (2.6-8.5); Neutrophils Percent Auto 70.7 % (45.5-73.1); Platelet Count Result 232 k/mm3 (150-375); Red Blood Count 3.99 M/mm3 (4.2-5.4); White Blood Count 5.7 K/mm3 (4.5-10.0)
[2021-11-23 06:57] LABS: Alanine Aminotransferase 14 U/L (4-35); Albumin Level 2.9 g/dL (3.5-5.1); Alkaline Phosphatase 109 U/L (38-126); Anion Gap 3 mmol/L (8-16); Aspartate Amino Transferase 24 U/L (14-36); Bilirubin,Total 0.2 mg/dL (0.2-1.3); Blood Urea Nitrogen 20 mg/dL (7-17); Calcium 7.9 mg/dL (8.4-10.2); Carbon Dioxide 32 mmol/L (22-30); Chloride 104 mmol/L (98-107); Estimated CRCL calculation 48 ml/min; Estimated Glomerular Filt Rate 54; Glucose 150 mg/dL (65-110); Magnesium 2.1 mg/dL (1.6-2.3); Sodium 139 mmol/L (137-145)
[2021-11-23] MEDS: ALBUTEROL SULFATE NEB 2.5 MG/0.5 ML INH 5 MG INHALATION ×3 (07:48→19:45)
[2021-11-23 08:00] LABS: Glucose Point of Care 147 mg/dl (65-105)
[2021-11-23 08:01] LABS: Ovalocytes 1+ (NORMAL); Platelet Estimate Adequate (Adequate)
[2021-11-23] MEDS: amLODIPine BESYLATE 5 MG TABLET 10 MG PO (08:54)
[2021-11-23] MEDS: DOCUSATE SODIUM 100 MG CAPSULE 200 MG BY MOUTH (08:54)
[2021-11-23] MEDS: hydrALAZINE HCL 50 MG TABLET PO ×3 (08:54→16:26)
[2021-11-23] MEDS: CLOPIDOGREL BISULFATE 75 MG TABLET PO (08:54)
[2021-11-23] MEDS: lisinopriL 20 MG TABLET 40 MG PO (08:54)
[2021-11-23] MEDS: DOCUSATE SODIUM 100 MG CAPSULE BY MOUTH ×3 (11:29→21:02)
[2021-11-23 11:36] LABS: Glucose Point of Care 175 mg/dl (65-105)
[2021-11-23 11:42] LABS: Basophils Percent Auto 0.7 % (0.2-1.2); Eosinophils Absolute Auto 0.4 K/mm3 (0-0.3); Eosinophils Percent Auto 6.3 % (0-4.4); Hematocrit 31.1 % (37.0-47.0); Hemoglobin 9.2 g/dL (12.0-15.0); Immature Granulocyte Absolute 0.03 K/mm3 (0.00-0.031); Immature Granulocyte Percent A 0.5 % (0-0.5); Lymphocytes Percent Auto 8.7 % (18.3-44.2); Mean Corpuscular HGB Conc 29.6 g/dl (32-36); Mean Corpuscular Hemoglobin 25.6 pg (26-34); Mean Corpuscular Volume 86.6 fl (80-100); Mean Platelet Volume 9.2 fl (7.4-10.4); Monocytes Absolute Auto 0.6 K/mm3 (0.1-0.6); Monocytes Percent Auto 9.9 % (2.6-8.5); Neutrophils Absolute Auto 4.2 K/mm3 (1.3-6.7); Neutrophils Percent Auto 73.9 % (45.5-73.1); Platelet Count Result 221 k/mm3 (150-375); Red Blood Count 3.59 M/mm3 (4.2-5.4); Red Cell Distribution Width 14.9 % (11.5-14.5); White Blood Count 5.7 K/mm3 (4.5-10.0)
[2021-11-23 11:53] LABS: INR 1.3; Prothrombin Time 15.5 Seconds (11.1-14.7)
--- NOTE | 2021-11-23 14:44 | PM.IMPN ---
Progress Note: A&P Assessment and Plan (1) Pulmonary hypertension: Code(s): I27.20 - Pulmonary hypertension, unspecified Status: Acute (2) DVT prophylaxis: Code(s): Z29.9 - Encounter for prophylactic measures, unspecified Status: Acute (3) Iron deficiency anemia: Code(s): D50.9 - Iron deficiency anemia, unspecified Status: Acute (4) Lytic bone lesion of femur: Code(s): M89.9 - Disorder of bone, unspecified Status: Acute (5) Abnormal findings on diagnostic imaging of gallbladder: Code(s): R93.2 - Abnormal findings on diagnostic imaging of liver and biliary tract Status: Acute (6) Pleural effusion: Code(s): J90 - Pleural effusion, not elsewhere classified Status: Acute (7) Elevated troponin: Code(s): R77.8 - Other specified abnormalities of plasma proteins Status: Acute Additional Plan # lytic bone lesion left knee # multiple myeloma, malignancy? -SPEP, UPEP, light chains ordered -ordered bone marrow biopsy -consulted oncologist Dr. Rollins -patient will need to follow-up with Dr. Hargrove at [facility] orthopedic -left knee MRI consistent with 2.4 cm mass at distal femoral metaphysis, recommendation for MRI with and without contrast to assess fat content # acute hypoxic respiratory failure # community-acquired pneumonia, atypical with ground glass finding -O2 weaned to 2L -ApneaLink was ordered last night which will need to be repeated -with unclear explanation for oxygen requirements and signs of mid and lower lung disease on x-ray patient is on antibiotics -antibiotics: Azithromycin, Rocephin will continue -also of note 6 mm right middle lobe subpleural nodule with recommendation for imaging follow-up CT scan 1 year # acute kidney injury, CKD? -may be secondary to myeloma -held home Aleve which may causing kidney injury -Cr 1.0 # left-sided renal mass suggestive of myelolipoma -incidental finding # essential hypertension -continue amlodipine 10 mg daily, labetalol 100 mg q.8 hours, hydralazine 25 mg t.i.d. increased to 50 mg t.i.d., lisinopril 40 mg daily, restarting spironolactone -will continue adjusting BP meds # elevated troponin -no chest pain symptoms, no sign of ACS -may be secondary to blood pressure with severe pulmonary hypertension -echocardiogram showing EF 65-70% # iron deficiency anemia -patient given IV iron 3/3 -chronic anemia hemoglobin 9, no bleeding -anemia may be from multiple myeloma # abnormal finding of gallbladder fundus with haziness of pericholecystic fat -general surgeon consulted with no further workup recommended # other chronic conditions -hyperlipidemia: Continue Lipitor, Zetia -continue carbamazepine -CAD: held clopidogrel for bone marrow biopsy -peripheral neuropathy: Continue Neurontin -insomnia: Melatonin q.h.s. -anxiety/depression: Seroquel, Ativan -pain control: Oxycodone and [place] -type 2 diabetes: Hemoglobin A1c 6.2, SSI, accucheck ACHS Diet: Heart healthy DVT prophylaxis: SCDs Code status: Do not resuscitate Disposition: Pending PT/OT evaluation. Family trying to move to assisted living facility, may need SNF in the interim Social: updated at bedside Time Spent With Patient Time with patient: 25 - 35 minutes Subjective Date/time seen: 11/23/21 14:44 Patient seen in examined. She is feeling better. Will continue weaning O2, down to 2L by NC. Continue Abx for PNA. Bone marrow biopsy ordered and plavix held. updated bedside. BP still elevated, restarting home spironolactone. She denies fever, chills, N/V/D, chest pain, abdominal pain. Review of Systems Review of Systems: All systems reviewed & are unremarkable except as noted in HPI and below Exam Narrative: - GENERAL: Pleasant elderly woman in no acute distress - EYES: EOMI. Anicteric. - HENT: Moist mucous membranes. - LUNGS: Clear to auscultation bilaterally, no wheezing, rhonchi, or rales. no
[2021-11-23] MEDS: SPIRONOLACTONE 25 MG TABLET PO (16:26)
[2021-11-23 16:30] LABS: Glucose Point of Care 160 mg/dl (65-105)
--- NOTE | 2021-11-23 18:43 | PC.NURSE ---
Spoke with CT. They stated their radiologist is not on site today. They stated blood thinner will most likely need held for 7 days before bone marrow biopsy. Unable to obtain consent at this time. Will pass on to nurse taking over the shift so they can speak to the radiologist tomorrow. I spoke with Dr. Hooker about this. He stated he already held Plavix in preparation for bone marrow biopsy later this week.
[2021-11-23] MEDS: ATORVASTATIN 40 MG TABLET 80 MG PO (21:01)
[2021-11-23] MEDS: LORazepam (*CRX) 0.5 MG TABLET PO (21:02)
[2021-11-23] MEDS: QUEtiapine FUMARATE 25 MG TABLET PO (21:02)
[2021-11-23] MEDS: EZETIMIBE 10 MG TABLET BY MOUTH (21:02)
[2021-11-23 22:50] LABS: Glucose Point of Care 143 mg/dl (65-105)
[2021-11-24] VITALS (15 sets, daily range): BP systolic 152–193; BP diastolic 49–54; PULSE 62–77; RESP 16–18; TEMP 36.3–36.7; O2SAT 93–97
[2021-11-24] MEDS: ALBUTEROL SULFATE NEB 2.5 MG/0.5 ML INH 5 MG INHALATION ×4 (01:47→20:09)
[2021-11-24] MEDS: LABETALOL HCL 100 MG TABLET PO ×3 (05:36→21:48)
[2021-11-24] MEDS: GABAPENTIN 300 MG CAPSULE 600 MG PO ×3 (05:36→21:45)
[2021-11-24 06:47] LABS: Alanine Aminotransferase 15 U/L (6-35); Albumin Level 2.9 g/dL (3.5-5.1); Alkaline Phosphatase 119 U/L (38-126); Anion Gap 2 mmol/L (8-16); Aspartate Amino Transferase 27 U/L (14-36); Bilirubin,Total < 0.1 mg/dL (0.2-1.3); Blood Urea Nitrogen 18 mg/dL (7-17); Calcium 7.8 mg/dL (8.4-10.2); Carbon Dioxide 34 mmol/L (22-30); Chloride 104 mmol/L (98-107); Estimated CRCL calculation 48 ml/min; Estimated Glomerular Filt Rate 54; Glucose 115 mg/dL (65-110); Magnesium 2.1 mg/dL (1.6-2.3); Potassium 4.1 mmol/L (3.4-5.0); Sodium 140 mmol/L (137-145)
[2021-11-24 07:54] LABS: Glucose Point of Care 121 mg/dl (65-105)
[2021-11-24] MEDS: SPIRONOLACTONE 25 MG TABLET PO (08:37)
[2021-11-24] MEDS: amLODIPine BESYLATE 5 MG TABLET 10 MG PO (08:37)
[2021-11-24] MEDS: lisinopriL 20 MG TABLET 40 MG PO (08:38)
[2021-11-24] MEDS: hydrALAZINE HCL 25 MG TABLET 75 MG PO ×3 (08:38→16:09)
[2021-11-24] MEDS: DOCUSATE SODIUM 100 MG CAPSULE 200 MG BY MOUTH (08:42)
--- NOTE | 2021-11-24 11:26 | PM.IMPN ---
Progress Note: A&P Assessment and Plan (1) Essential (primary) hypertension: Code(s): I10 - Essential (primary) hypertension Status: Acute Assessment and Plan: Chart review shows that her hypertension has been historically difficult to control. BP elevated to 234/68 on admission. BP better controlled with her medications but still not at goal. Continue home amlodipine 10mg daily, labetalol 100mg q.8hrs, lisinopril 40 mg daily. Spironolactone 25 mg daily was on hold but added back. Hydralazine was added back and advanced to 75mg TID. Follow for now. (2) Closed fracture of distal end of left femur: Qualifiers: Encounter type: subsequent encounter Fracture healing: with nonunion Fracture morphology: unspecified fracture morphology Qualified Code(s): S72.402K - Unspecified fracture of lower end of left femur, subsequent encounter for closed fracture with nonunion Code(s): S72.402A - Unspecified fracture of lower end of left femur, initial encounter for closed fracture Status: Acute Assessment and Plan: XRay on admission showing fracture of lateral cortex of distal femoral metaphysis. Presumably secondary to aggressive lytic lesion noted on imaging. Dr. Scott consulted by ED physician and his input appreciated. Knee braced. MR knee was incomplete but does show no fracture. Patient most likely will need to continue to be non-weight bearing given the bone lesion. Discussed with today. Ortho following. (3) Lytic bone lesion of femur: Code(s): M89.9 - Disorder of bone, unspecified Status: Acute Assessment and Plan: Aggressive lytic lesion noted in the distal femoral metaphysis suspicious for multiple myeloma or metastatic disease. Dr. Rollins consulted by ED physician and his input is appreciated. Skeletal survey showing only the single lesion. Evaluation for multiple myeloma in process. MR brain okay. Ortho laid out plans for patietn and to follow up at [facility] with Dr Reyez but states he does not recall this. Free kappa elevated and IgG low. SIF pending. Knee MRI ordered and was incomplete since patient could not tolerate. The MR knee shows no fracture but a 3.4 cm mass in distal femoral metaphysis either benign or malignant, meniscus tears and a large knee joint effusion. Bone biopsy ordered. Spoke with Dr Rollins today and he felt okay to proceed. (4) Elevated troponin: Code(s): R77.8 - Other specified abnormalities of plasma proteins Status: Acute Assessment and Plan: She denies chest pain and has vague complaints of generally feeling unwell. She was hypoxic on admission. EKG reviewed showing sinus rhythm with RAD, Rt BBB and possible old high lateral MA. Troponin was 0.59 and trending down. Echo completed showing EF 65/70%, severe LVH, diastolic dysfunction, moderate MS and severe pulmonary HTN. SBP as high as 234. Suspect elevated Troponin related to severe HTN. Will follow for now. Continue as above. Okay to stop tele (5) Acute kidney injury: Code(s): N17.9 - Acute kidney failure, unspecified Status: Acute Assessment and Plan: Cr 1.4 on admission. Normal creatinine at baseline. Patient has had poor oral intake the last several days thus may be in part due to dehydration. She received 2500 mL normal saline in ER so fluids not continued. CT scan showing a 7.2 x 5.7 cm left renal mass without significant change since 01/27/20 at which time the mass measured 6.7 x 5.6 cm. The mass contains small calcifications and small amount of macroscopic fat consistent with myelolipoma. A couple nonobstructing right renal stones the largest measuring 3 mm at a lower pole calyx. There is mild scattered cortical atrophy of both kidneys. Couple small left renal cysts. Renal ultrasound showing normal parenchymal echogenicity and no sonographic evidence of nephrolithiasis. Heterogeneous left superior pole mass measuring up t
[2021-11-24] MEDS: DOCUSATE SODIUM 100 MG CAPSULE BY MOUTH ×3 (11:27→21:44)
[2021-11-24 11:47] LABS: Glucose Point of Care 158 mg/dl (65-105)
[2021-11-24] MEDS: FUROSEMIDE INJ 40 MG/4 ML VIAL IV PUSH (12:43)
[2021-11-24] MEDS: PANTOPRAZOLE 40 MG TABLET PO (12:44)
[2021-11-24] MEDS: oxyCODONE HCL (*CRX) 5 MG TAB IR PO ×2 (14:01→21:50)
[2021-11-24 15:03] LABS: IFOB Positive Control Positive; Immunochemical Fecal Occult Bl Positive (N)
[2021-11-24] MEDS: FERROUS SULFATE 324 MG TABLET PO (16:08)
[2021-11-24] MEDS: oxyCODONE/ACETAMINOPHEN (*CRX) 5-325 MG TABLET 1 TABLET PO ×2 (17:28→21:49)
[2021-11-24] MEDS: LORazepam (*CRX) 0.5 MG TABLET PO (21:44)
[2021-11-24] MEDS: ATORVASTATIN 40 MG TABLET 80 MG PO (21:45)
[2021-11-24] MEDS: QUEtiapine FUMARATE 25 MG TABLET PO (21:45)
[2021-11-24] MEDS: EZETIMIBE 10 MG TABLET BY MOUTH (21:45)
[2021-11-24 21:57] LABS: Glucose Point of Care 136 mg/dl (65-105)
[2021-11-24] MEDS: MELATONIN 5 MG TABLET 20 MG PO (21:57)
[2021-11-25] VITALS (17 sets, daily range): BP systolic 170–174; BP diastolic 47–80; PULSE 61–91; RESP 12–20; TEMP 36.2–36.9; O2SAT 87–94
[2021-11-25] MEDS: ALBUTEROL SULFATE NEB 2.5 MG/0.5 ML INH 5 MG INHALATION ×4 (02:08→20:27)
[2021-11-25] MEDS: oxyCODONE/ACETAMINOPHEN (*CRX) 5-325 MG TABLET 1 TABLET PO ×4 (02:14→21:16)
[2021-11-25] MEDS: oxyCODONE HCL (*CRX) 5 MG TAB IR PO ×3 (02:15→21:17)
[2021-11-25 02:23] LABS: Glucose Point of Care 114 mg/dl (65-105)
[2021-11-25 05:44] LABS: Basophils Absolute Auto 0.1 K/mm3 (0.0-0.1); Basophils Percent Auto 1.1 % (0.2-1.2); Eosinophils Absolute Auto 0.4 K/mm3 (0-0.3); Eosinophils Percent Auto 6.4 % (0-4.4); Hematocrit 34.7 % (37.0-47.0); Hemoglobin 9.7 g/dL (12.0-15.0); Immature Granulocyte Absolute 0.04 K/mm3 (0.00-0.031); Immature Granulocyte Percent A 0.6 % (0-0.5); Lymphocytes Absolute Auto 0.72 K/mm3 (0.9-3.2); Lymphocytes Percent Auto 11.4 % (18.3-44.2); Mean Corpuscular Volume 89.4 fl (80-100); Mean Platelet Volume 9.8 fl (7.4-10.4); Monocytes Absolute Auto 0.6 K/mm3 (0.1-0.6); Monocytes Percent Auto 10.2 % (2.6-8.5); Neutrophils Absolute Auto 4.4 K/mm3 (1.3-6.7); Neutrophils Percent Auto 70.3 % (45.5-73.1); Platelet Count Result 235 k/mm3 (150-375); Red Blood Count 3.88 M/mm3 (4.2-5.4); Red Cell Distribution Width 15.4 % (11.5-14.5); White Blood Count 6.3 K/mm3 (4.5-10.0)
[2021-11-25 05:58] LABS: Anion Gap 4 mmol/L (8-16); Blood Urea Nitrogen 17 mg/dL (7-17); Calcium 8.1 mg/dL (8.4-10.2); Carbon Dioxide 35 mmol/L (22-30); Chloride 102 mmol/L (98-107); Estimated CRCL calculation 48 ml/min; Estimated Glomerular Filt Rate 54; Glucose 110 mg/dL (65-110); Sodium 141 mmol/L (137-145)
[2021-11-25 06:06] LABS: Anisocytosis 1+ (NORMAL); Hypochromasia 1+ (NORMAL); Ovalocytes 1+ (NORMAL); Platelet Estimate Adequate (Adequate)
[2021-11-25] MEDS: GABAPENTIN 300 MG CAPSULE 600 MG PO ×3 (06:16→21:18)
[2021-11-25] MEDS: LABETALOL HCL 100 MG TABLET PO ×3 (06:16→21:17)
[2021-11-25 07:54] LABS: Glucose Point of Care 102 mg/dl (65-105)
--- NOTE | 2021-11-25 08:19 | WPDMODSED ---
Moderate Sedation Note-Pt Data Patient Data Allergies Allergy/AdvReac Type Severity Reaction Status Date / Time No Known Allergies Allergy Verified 11/19/21 13:26 Home Medications Medication Instructions Recorded Confirmed Type amlodipine 10 mg PO DAILY 11/19/21 11/19/21 History atorvastatin 80 mg PO HS 11/19/21 11/19/21 History carbamazepine 100 mg PO Q8H 11/19/21 11/19/21 History clopidogrel 75 mg PO DAILY 11/19/21 11/19/21 History docusate sodium [Stool Softener] See Rx Instructions .ROUTE .COMPLEX 11/19/21 11/19/21 History ezetimibe 10 mg HS 11/19/21 11/19/21 History gabapentin 600 mg PO Q8H 11/19/21 11/19/21 History hydralazine 25 mg PO TID 11/19/21 11/19/21 History labetalol 100 mg PO Q8H 11/19/21 11/19/21 History lisinopril 40 mg PO DAILY 11/19/21 11/19/21 History lorazepam 0.5 mg PO HS 11/19/21 11/19/21 History melatonin 20 mg PO HS PRN 11/19/21 11/19/21 History naproxen sodium [Aleve] 220 mg PO Q8H PRN 11/19/21 11/19/21 History oxycodone-acetaminophen 1 tablet PO Q4H PRN 11/19/21 11/19/21 History quetiapine 25 mg PO HS 11/19/21 11/19/21 History spironolactone 25 mg PO DAILY 11/19/21 11/19/21 History Current Medications: Active Medications Acetaminophen (Acetaminophen 325 Mg Tablet) 650 mg PO Q4H PRN PRN Reason: Mild Pain (1-3) or Fever Albuterol (Albuterol Sulfate Neb 2.5 Mg/0.5 Ml Inh) 5 mg INHALATION Q6HRT [facility] Last Admin: 11/25/21 02:08 Dose: 5 mg Documented by: Amlodipine Besylate (Amlodipine Besylate 5 Mg Tablet) 10 mg PO DAILY [facility] Last Admin: 11/24/21 08:37 Dose: 10 mg Documented by: Atorvastatin Calcium (Atorvastatin 40 Mg Tablet) 80 mg PO [facility] Last Admin: 11/24/21 21:45 Dose: 80 mg Documented by: Carbamazepine (Carbamazepine Chew 100 Mg Chew) 100 mg PO TIDWM [facility] Last Admin: 11/24/21 16:08 Dose: 100 mg Documented by: Clopidogrel Bisulfate (Clopidogrel Bisulfate 75 Mg Tablet) 75 mg PO DAILY [facility] Last Admin: 11/23/21 08:54 Dose: 75 mg Documented by: Dextrose (Dextrose 50% 25 Gm/50 Ml Syringe) 12.5 gm IV PUSH PRN PRN; Protocol PRN Reason: Hypoglycemia Docusate Sodium (Docusate Sodium 100 Mg Capsule) 100 mg BY MOUTH TID@1200,1700,2200 [facility] Last Admin: 11/24/21 21:44 Dose: 100 mg Documented by: Docusate Sodium (Docusate Sodium 100 Mg Capsule) 200 mg BY MOUTH [facility] Last Admin: 11/24/21 08:42 Dose: 200 mg Documented by: Ezetimibe (Ezetimibe 10 Mg Tablet) 10 mg BY MOUTH [facility] Last Admin: 11/24/21 21:45 Dose: 10 mg Documented by: Ferrous Sulfate (Ferrous Sulfate 324 Mg Tablet) 324 mg PO BIDWM [facility] Last Admin: 11/24/21 16:08 Dose: 324 mg Documented by: Furosemide (Furosemide 20 Mg Tablet) 20 mg PO DAILY [facility] Gabapentin (Gabapentin 300 Mg Capsule) 600 mg PO Q8HR [facility] Last Admin: 11/25/21 06:16 Dose: 600 mg Documented by: Glucagon (Glucagon For Inj 1 Mg Vial) 1 mg IM PRN PRN; Protocol PRN Reason: Hypoglycemia Glucose (Glucose Oral Gel 15 Gm Of Glucse In 37.5 Gm Tube) 15 gm PO PRN PRN; Protocol PRN Reason: Hypoglycemia Hydralazine HCl (Hydralazine Hcl 20 Mg/Ml Vial) 10 mg IV PUSH Q6H PRN PRN Reason: Blood Pressure - High SBP>170 Hydralazine HCl (Hydralazine Hcl 25 Mg Tablet) 75 mg PO TIDWM [facility] Last Admin: 11/24/21 16:09 Dose: 75 mg Documented by: Ceftriaxone Sodium/Dextrose (Rocephin 1 Gm/D5w 50 Ml) 1 gm in 50 mls @ 100 mls/hr IVPB Q24H [facility] Last Infusion: 11/24/21 09:20 Dose: Infused Documented by: Dextrose (Dextrose 5% 1,000 Ml) 1,000 mls @ 100 mls/hr IVPB PRN PRN; Protocol PRN Reason: Hypoglycemia Insulin Aspart (Insulin Aspart (*Bkc) 100 Units/Ml) 2 - 5 units SUB-Q TIDWM [facility]; Protocol Last Admin: 11/24/21 16:42 Dose: Not Given Documented by: Labetalol HCl (Labetalol Hcl 100 Mg Tablet) 100 mg PO Q8HR [facility] Last Admin: 11/25/21 06:16 Dose: 100 mg Documented by: Lisinopril (Lisinopril 20 Mg Tablet) 40 mg PO QAM [facility] Last Admin: 11/24/21 08:38 Dose: 40 mg Documented by: Lorazepam (Lorazepam (*Crx) 0.5 Mg Tablet) 0.5 mg PO HS [facility] Last Adm
--- NOTE | 2021-11-25 08:20 | WPDMODSED ---
Moderate Sedation Note-Pt Data Patient Data Allergies Allergy/AdvReac Type Severity Reaction Status Date / Time No Known Allergies Allergy Verified 11/19/21 13:26 Home Medications Medication Instructions Recorded Confirmed Type amlodipine 10 mg PO DAILY 11/19/21 11/19/21 History atorvastatin 80 mg PO HS 11/19/21 11/19/21 History carbamazepine 100 mg PO Q8H 11/19/21 11/19/21 History clopidogrel 75 mg PO DAILY 11/19/21 11/19/21 History docusate sodium [Stool Softener] See Rx Instructions .ROUTE .COMPLEX 11/19/21 11/19/21 History ezetimibe 10 mg HS 11/19/21 11/19/21 History gabapentin 600 mg PO Q8H 11/19/21 11/19/21 History hydralazine 25 mg PO TID 11/19/21 11/19/21 History labetalol 100 mg PO Q8H 11/19/21 11/19/21 History lisinopril 40 mg PO DAILY 11/19/21 11/19/21 History lorazepam 0.5 mg PO HS 11/19/21 11/19/21 History melatonin 20 mg PO HS PRN 11/19/21 11/19/21 History naproxen sodium [Aleve] 220 mg PO Q8H PRN 11/19/21 11/19/21 History oxycodone-acetaminophen 1 tablet PO Q4H PRN 11/19/21 11/19/21 History quetiapine 25 mg PO HS 11/19/21 11/19/21 History spironolactone 25 mg PO DAILY 11/19/21 11/19/21 History Current Medications: Active Medications Acetaminophen (Acetaminophen 325 Mg Tablet) 650 mg PO Q4H PRN PRN Reason: Mild Pain (1-3) or Fever Albuterol (Albuterol Sulfate Neb 2.5 Mg/0.5 Ml Inh) 5 mg INHALATION Q6HRT [facility] Last Admin: 11/25/21 02:08 Dose: 5 mg Documented by: Amlodipine Besylate (Amlodipine Besylate 5 Mg Tablet) 10 mg PO DAILY [facility] Last Admin: 11/24/21 08:37 Dose: 10 mg Documented by: Atorvastatin Calcium (Atorvastatin 40 Mg Tablet) 80 mg PO [facility] Last Admin: 11/24/21 21:45 Dose: 80 mg Documented by: Carbamazepine (Carbamazepine Chew 100 Mg Chew) 100 mg PO TIDWM [facility] Last Admin: 11/24/21 16:08 Dose: 100 mg Documented by: Clopidogrel Bisulfate (Clopidogrel Bisulfate 75 Mg Tablet) 75 mg PO DAILY [facility] Last Admin: 11/23/21 08:54 Dose: 75 mg Documented by: Dextrose (Dextrose 50% 25 Gm/50 Ml Syringe) 12.5 gm IV PUSH PRN PRN; Protocol PRN Reason: Hypoglycemia Docusate Sodium (Docusate Sodium 100 Mg Capsule) 100 mg BY MOUTH TID@1200,1700,2200 [facility] Last Admin: 11/24/21 21:44 Dose: 100 mg Documented by: Docusate Sodium (Docusate Sodium 100 Mg Capsule) 200 mg BY MOUTH [facility] Last Admin: 11/24/21 08:42 Dose: 200 mg Documented by: Ezetimibe (Ezetimibe 10 Mg Tablet) 10 mg BY MOUTH [facility] Last Admin: 11/24/21 21:45 Dose: 10 mg Documented by: Ferrous Sulfate (Ferrous Sulfate 324 Mg Tablet) 324 mg PO BIDWM [facility] Last Admin: 11/24/21 16:08 Dose: 324 mg Documented by: Furosemide (Furosemide 20 Mg Tablet) 20 mg PO DAILY [facility] Gabapentin (Gabapentin 300 Mg Capsule) 600 mg PO Q8HR [facility] Last Admin: 11/25/21 06:16 Dose: 600 mg Documented by: Glucagon (Glucagon For Inj 1 Mg Vial) 1 mg IM PRN PRN; Protocol PRN Reason: Hypoglycemia Glucose (Glucose Oral Gel 15 Gm Of Glucse In 37.5 Gm Tube) 15 gm PO PRN PRN; Protocol PRN Reason: Hypoglycemia Hydralazine HCl (Hydralazine Hcl 20 Mg/Ml Vial) 10 mg IV PUSH Q6H PRN PRN Reason: Blood Pressure - High SBP>170 Hydralazine HCl (Hydralazine Hcl 25 Mg Tablet) 75 mg PO TIDWM [facility] Last Admin: 11/24/21 16:09 Dose: 75 mg Documented by: Ceftriaxone Sodium/Dextrose (Rocephin 1 Gm/D5w 50 Ml) 1 gm in 50 mls @ 100 mls/hr IVPB Q24H [facility] Last Infusion: 11/24/21 09:20 Dose: Infused Documented by: Dextrose (Dextrose 5% 1,000 Ml) 1,000 mls @ 100 mls/hr IVPB PRN PRN; Protocol PRN Reason: Hypoglycemia Insulin Aspart (Insulin Aspart (*Bkc) 100 Units/Ml) 2 - 5 units SUB-Q TIDWM [facility]; Protocol Last Admin: 11/24/21 16:42 Dose: Not Given Documented by: Labetalol HCl (Labetalol Hcl 100 Mg Tablet) 100 mg PO Q8HR [facility] Last Admin: 11/25/21 06:16 Dose: 100 mg Documented by: Lisinopril (Lisinopril 20 Mg Tablet) 40 mg PO QAM [facility] Last Admin: 11/24/21 08:38 Dose: 40 mg Documented by: Lorazepam (Lorazepam (*Crx) 0.5 Mg Tablet) 0.5 mg PO HS [facility] Last Adm
[2021-11-25] MEDS: lisinopriL 20 MG TABLET 40 MG PO (09:20)
[2021-11-25] MEDS: SPIRONOLACTONE 25 MG TABLET PO (09:21)
[2021-11-25] MEDS: amLODIPine BESYLATE 5 MG TABLET 10 MG PO (09:21)
[2021-11-25] MEDS: PANTOPRAZOLE 40 MG TABLET PO (09:21)
[2021-11-25] MEDS: hydrALAZINE HCL 25 MG TABLET 75 MG PO ×2 (09:21→11:27)
[2021-11-25] MEDS: FERROUS SULFATE 324 MG TABLET PO ×2 (09:21→16:30)
[2021-11-25] MEDS: FUROSEMIDE 20 MG TABLET PO (09:21)
[2021-11-25] MEDS: DOCUSATE SODIUM 100 MG CAPSULE 200 MG BY MOUTH (09:22)
[2021-11-25 09:29] LABS: Glucose Point of Care 120 mg/dl (65-105)
[2021-11-25] MEDS: DOCUSATE SODIUM 100 MG CAPSULE BY MOUTH ×3 (11:26→21:16)
--- NOTE | 2021-11-25 11:38 | PM.IMPN ---
Progress Note: A&P Assessment and Plan (1) Essential (primary) hypertension: Code(s): I10 - Essential (primary) hypertension Status: Acute Assessment and Plan: Chart review shows that her hypertension has been historically difficult to control. BP elevated to 234/68 on admission. BP better controlled with her medications but still not at goal. Continue home amlodipine 10mg daily, labetalol 100mg q.8hrs, lisinopril 40 mg daily. Spironolactone 25 mg daily was on hold but added back. Hydralazine was added back and advanced to 75mg TID. Will advance hydralazine to 100mg. Follow for now. (2) Closed fracture of distal end of left femur: Qualifiers: Encounter type: subsequent encounter Fracture healing: with nonunion Fracture morphology: unspecified fracture morphology Qualified Code(s): S72.402K - Unspecified fracture of lower end of left femur, subsequent encounter for closed fracture with nonunion Code(s): S72.402A - Unspecified fracture of lower end of left femur, initial encounter for closed fracture Status: Acute Assessment and Plan: XRay on admission showing fracture of lateral cortex of distal femoral metaphysis. Presumably secondary to aggressive lytic lesion noted on imaging. Dr. Scott consulted by ED physician and his input appreciated. Knee braced. MR knee was incomplete but does show no fracture. Fracture ruled out. Patient most likely will need to continue to be non-weight bearing given the bone lesion. Ortho following and appreciate their input. (3) Lytic bone lesion of femur: Code(s): M89.9 - Disorder of bone, unspecified Status: Acute Assessment and Plan: Aggressive lytic lesion noted in the distal femoral metaphysis suspicious for multiple myeloma or metastatic disease. Dr. Rollins consulted by ED physician and his input is appreciated. Skeletal survey showing only the single lesion. Evaluation for multiple myeloma in process. MR brain okay. Ortho laid out plans for patient and to follow up at [facility] with Dr Reyez. states he does not recall this so ortho to reiterate plan. Free kappa elevated and IgG low. SIF pending. Knee MRI ordered and was incomplete since patient could not tolerate; it did show no fracture but a 3.4 cm mass in distal femoral metaphysis either benign or malignant, meniscus tears and a large knee joint effusion. Bone biopsy ordered and performed today. Oncology following and appreciate their input. (4) Elevated troponin: Code(s): R77.8 - Other specified abnormalities of plasma proteins Status: Acute Assessment and Plan: She denies chest pain and has vague complaints of generally feeling unwell. She was hypoxic on admission. EKG reviewed showing sinus rhythm with RAD, Rt BBB and possible old high lateral PR. Troponin was 0.59 and trending down. Echo completed showing EF 65-70%, severe LVH, diastolic dysfunction, moderate MS and severe pulmonary HTN. SBP was as high as 234. Suspect elevated Troponin related to severe HTN. Will follow for now. Continue as above. (5) Acute kidney injury: Code(s): N17.9 - Acute kidney failure, unspecified Status: Acute Assessment and Plan: Cr 1.4 on admission. Normal creatinine at baseline. Patient has had poor oral intake the last several days thus may be in part due to dehydration. She received 2500 mL normal saline in ER so fluids not continued. CT scan showing a 7.2 x 5.7 cm left renal mass without significant change since 01/27/20 at which time the mass measured 6.7 x 5.6 cm. The mass contains small calcifications and small amount of macroscopic fat consistent with myelolipoma. A couple nonobstructing right renal stones the largest measuring 3 mm at a lower pole calyx. There is mild scattered cortical atrophy of both kidneys. Couple small left renal cysts. Renal ultrasound showing normal parenchymal echogenicity and no sonographic evidence o
[2021-11-25 11:58] LABS: Glucose Point of Care 161 mg/dl (65-105)
--- NOTE | 2021-11-25 12:12 | PCNFU ---
Nutrition Follow-Up Complete: Unintentional weight loss related to decreased appetite and intake as evidenced by pt report. Goal: PO intake 75% or greater most meals Patient is meeting goal. No new goal. Pt current nutrition is Heart Healthy with Ensure Compact TID. Last recorded weight is 92 kg, up from 86.8 kg on admit. Bowel Motility: +BM reported 11/24 Labs Reviewed:GFR 54, Hct 34.7,Hgb 9.7 Meds Noted: Lasix, Lipitor, Rocephin, Prinivil, Protonix, Norvasc, Lasix, Ferrous Sulfate, Colace, Percocet. Skin: WNL Additional Notes: Patient remains on a heart healthy diet. Oral Intake has been 50-100%. Patient is receiving ensure compact BID, providing 220 kcals and 9 gms protein. Agree with diet orders. Bone biopsy 11/25. Monitor intake, wt, labs. Follow up in 7 days.
[2021-11-25] MEDS: FUROSEMIDE INJ 40 MG/4 ML VIAL IV PUSH ×2 (12:24→16:30)
[2021-11-25] MEDS: hydrALAZINE HCL 50 MG TABLET 100 MG PO ×2 (12:25→16:45)
--- NOTE | 2021-11-25 13:01 | WPDGICN ---
Assessment and Plan Assessment and plan (1) Iron deficiency anemia: Code(s): D50.9 - Iron deficiency anemia, unspecified Status: Acute Assessment and Plan: Patient with chronic anemia likely multifactorial. Iron indices are consistent with iron deficiency. And agree that GI endoscopic evaluation is indicated. However given her significant comorbid diseases that include pneumonia and a new lytic lesion of femur deferring this till she is more stable appears prudent. We will follow with you in consider this later in the week depending on her overall medical status. (2) Occult blood in stools: Code(s): R19.5 - Other fecal abnormalities Status: Acute Assessment and Plan: No obvious blood in her stool. Occult blood noted on stool heme testing. Patient does have chronic anemia that has been present for the last several years. Now with iron deficient indices. GI endoscopy will be performed when her overall medical status allows. Currently with her pneumonia and general debility would defer this until she has low bit stronger. (3) Lytic bone lesion of femur: Code(s): M89.9 - Disorder of bone, unspecified Status: Acute (4) Pneumonia: Qualifiers: Laterality: unspecified laterality Lung location: lower lobe of lung Pneumonia type: due to unspecified organism Qualified Code(s): J18.9 - Pneumonia, unspecified organism Code(s): J18.9 - Pneumonia, unspecified organism Status: Acute (5) Type 2 diabetes mellitus: Code(s): E11.9 - Type 2 diabetes mellitus without complications Status: Acute GI Consult Note Consult date/time: 11/25/21 13:01 HPI: Terese Bentley is a 76 year old female I am asked to see at the request of the hospitalist service because of iron deficiency anemia in new finding of occult blood in stool. Patient present the hospital and was admitted on 11/19/2021. At that time she felt very weak. Was found to be dehydrated with azotemia. She ultimately was found to have pneumonia. She she became evident she had chronic ongoing anemia. Iron indices suggest iron deficiency. Yesterday stool Hemoccult confirmed to be positive. During her workup she was found to have a distal femur bone lesion suspicious for multiple myeloma. Workup for this is currently in process. Patient denies any obvious blood in her stools. She is a poor historian and unable to add too much useful history regarding her bowel habits been in general they appeared to be normal. Review of Systems Review of Systems: ROS unobtainable: Yes unobtainable due to mental status PMFSH Past Medical History Medical History Anxiety Chronic back pain Coronary artery disease Abnormal MPI in 11/2014.Subsequent cardiac catheterization showed high-grade mid LAD stenosis in which a bare-metal stent was placed per Dr. Perez. She is followed in the clinic by Dr. Antonella Edmonds. Dyslipidemia Left adrenal mass Reportedly discovered in 2014 with negative workup for pheochromocytoma. Lumbar spondylosis Osteoarthritis Peripheral neuropathy Pulmonary nodule Tobacco abuse Type 2 diabetes mellitus Surgical History Surgical History History of basal cell carcinoma excision Excised from the left nasal bridge. History of coronary artery stent placement (~11/2014) Bare-metal stent to mid LAD. History of left hip replacement (~2014) History of lumbar surgery Family History Family History Father Acute myocardial infarction at age 57. Mother Breast cancer Social History Social History Social History: Surrogate decision maker: Jose Bentley, . Code status: Full code. Smoking packs per day: 1.5 Smoking cigarettes per day: 30.0 Years smoked: 20 Smokin
--- NOTE | 2021-11-25 15:42 | PM.PNORT ---
Progress Note: A&P Assessment and Plan (1) Lytic bone lesion of femur: Code(s): M89.9 - Disorder of bone, unspecified Status: Acute Assessment and Plan: Initial radiographs in the emergency room reveal a fracture of the lateral cortices of the distal femoral metaphysis as well as an aggressive lytic lesion in the distal femoral metaphysis suspicious for multiple myeloma or metastatic disease. A skeletal survey reveals a single 3.5 cm lytic lesion at the distal left femur with at least moderately aggressive appearing margins, potentially with some more aggressive cortical erosions anteriorly which is suspicious for malignancy with them for initials including metastatic disease, multiple myeloma, lymphoma or primary bone cancer. MRI of the left knee recommended. MRI reveals 3.4 cm mass in distal femoral metaphysis. The differential diagnosis is broad and includes metastatic disease, multiple myeloma, lymphoma, primary malignancy, brown tumor, giant cell tumor, and focal osteopenia. The patient stopped the exam early. Patient is currently being followed by oncology. Oncology performing myeloma workup. Bone marrow biopsy performed today. Pathology pending. Patient has been fit with a knee immobilizer. Continue NWB of the LLE. Pain control. Ice. Radiographic, MRI findings and current recommendations as well as referral details discussed with the patient and her who verbalize understanding. We have arranged an appointment with Dr. Anderson at [facility] with Orthopedic Oncology for 12/04 at 0800. Patient/family given all information. MRI disc to be obtained prior to appointment for Dr. Anderson's review. instructed on how to obtain disc. Subjective Subjective Date/Time Seen: 11/25/21 15:42 Interval history: Patient currently resting in bed. No complaints. at bedside. Review of Systems Constitutional: Constitutional: Reports poor appetite, Reports weakness and Reports weight loss Eyes: Eyes: Reports no additional eye complaints and Denies change in vision ENT: Reports system reviewed and no additional complaints, except as documented and Reports Normal hearing present Cardiovascular: Cardiovascular: Denies chest pain, Denies diaphoresis, Denies leg ulcers and Denies dyspnea on exertion Respiratory: Respiratory: Reports as per HPI Gastrointestinal: Gastrointestinal: Reports no additional gastrointestinal complaints, Denies abdominal pain, Denies constipation, Denies nausea and Denies vomiting Genitourinary: Genitourinary: Denies hematuria and Denies urinary frequency Musculoskeletal: Musculoskeletal: Reports no additional musculoskeletal complaints and Reports as per HPI Neurologic: Reports Normal hearing present Endocrine: Endocrine: Reports no additional endocrine complaints, Denies change in body appearance, Denies excessive sweating, Denies polyphagia, Denies polydipsia and Denies polyuria Exam Const: General: cooperative, alert, ill appearing and uncomfortable Nutritional Appearance: average body habitus Orientation/consciousness: patient oriented x3 Limitations: no limitations HENMT: Head: normal to inspection Ears: hearing grossly normal bilaterally General nose exam: Normal external nose present Face and sinus: normal facial exam Mouth: Yes moist mucous membranes Teeth and gingiva: dentition normal Eyes: General: appearance normal, both eyes and all related structures Pupils: Equal, round and reactive pupils present EOM: EOMs intact bilaterally Neck: Neck: normal visual inspection Chest: Chest palpation & inspection: normal inspection of the chest Resp: Effort & Inspection: normal respiratory effort and able to speak in complete sentences Cardio: Jugular venous distension: no JVD Neuro: General: patient oriented x3 Cranial nerves: Yes Normal hearing present Extrem: Right lower extremity: knee Details: tenderness Location: of the patella, swelling Location: of
[2021-11-25 16:48] LABS: Glucose Point of Care 128 mg/dl (65-105)
[2021-11-25] MEDS: ACETAMINOPHEN 325 MG TABLET 650 MG PO (18:19)
[2021-11-25] MEDS: EZETIMIBE 10 MG TABLET BY MOUTH (21:18)
[2021-11-25] MEDS: ATORVASTATIN 40 MG TABLET 80 MG PO (21:18)
[2021-11-25] MEDS: QUEtiapine FUMARATE 25 MG TABLET PO (21:18)
[2021-11-25] MEDS: LORazepam (*CRX) 0.5 MG TABLET PO (21:18)
[2021-11-25 21:44] LABS: Glucose Point of Care 208 mg/dl (65-105)
[2021-11-26] VITALS (17 sets, daily range): BP systolic 159–194; BP diastolic 37–80; PULSE 59–78; RESP 14–18; TEMP 36.4–37.3; O2SAT 66–98
[2021-11-26] MEDS: ALBUTEROL SULFATE NEB 2.5 MG/0.5 ML INH 5 MG INHALATION (01:13)
[2021-11-26] MEDS: GABAPENTIN 300 MG CAPSULE 600 MG PO ×3 (05:25→21:58)
[2021-11-26] MEDS: LABETALOL HCL 100 MG TABLET PO ×3 (05:25→21:58)
[2021-11-26 06:16] LABS: Hematocrit 35.1 % (37.0-47.0); Hemoglobin 9.9 g/dL (12.0-15.0); Mean Corpuscular HGB Conc 28.2 g/dl (32-36); Mean Corpuscular Hemoglobin 25.1 pg (26-34); Mean Corpuscular Volume 88.9 fl (80-100); Mean Platelet Volume 9.7 fl (7.4-10.4); Platelet Count Result 224 k/mm3 (150-375); Red Blood Count 3.95 M/mm3 (4.2-5.4); Red Cell Distribution Width 15.3 % (11.5-14.5); White Blood Count 5.6 K/mm3 (4.5-10.0)
[2021-11-26 06:22] LABS: Albumin Level 3.2 g/dL (3.5-5.1); Anion Gap 4 mmol/L (8-16); Blood Urea Nitrogen 20 mg/dL (7-17); Calcium 8.1 mg/dL (8.4-10.2); Carbon Dioxide 38 mmol/L (22-30); Chloride 97 mmol/L (98-107); Estimated CRCL calculation 48 ml/min; Estimated Glomerular Filt Rate 54; Glucose 123 mg/dL (65-110); Magnesium 1.8 mg/dL (1.6-2.3); Phosphorus 4.3 mg/dL (2.5-4.5); Potassium 4.1 mmol/L (3.4-5.0); Sodium 139 mmol/L (137-145)
[2021-11-26 07:27] LABS: Glucose Point of Care 124 mg/dl (65-105)
--- NOTE | 2021-11-26 07:45 | WPDGIPROGNO ---
Progress Note: A&P Assessment and Plan (1) Occult blood in stools: Code(s): R19.5 - Other fecal abnormalities Status: Acute Assessment and Plan: Patient found to have occult blood in stool but no visible bleeding. Etiology is unclear. Differential diagnosis is broad. Elective follow-up at a later date is advised. Once her acute illness has resolved. (2) Iron deficiency anemia: Code(s): D50.9 - Iron deficiency anemia, unspecified Status: Acute Assessment and Plan: Patient with chronic anemia iron indices appear low. Would recommend colonoscopy an EGD when she is stable clinically. Currently she is not able to give a useful history. Workup currently in progress for lytic lesion of the bone felt to be a tumor biopsy was performed yesterday. Results pending. Would defer GI evaluation till pneumonia has cleared in patient's medical status is more stable. (3) Lytic bone lesion of femur: Code(s): M89.9 - Disorder of bone, unspecified Status: Acute (4) Type 2 diabetes mellitus: Code(s): E11.9 - Type 2 diabetes mellitus without complications Status: Acute (5) Pneumonia: Qualifiers: Laterality: unspecified laterality Lung location: lower lobe of lung Pneumonia type: due to unspecified organism Qualified Code(s): J18.9 - Pneumonia, unspecified organism Code(s): J18.9 - Pneumonia, unspecified organism Status: Acute Subjective Date/time seen: 11/26/21 07:45 Patient alert this morning but remains a difficult historian. Patient apparently had bone marrow biopsy yesterday. One notes suggest procedure was terminated early. Patient offers no specific complaints. No obvious bleeding reported by nursing staff. No abdominal pain reported by patient. Review of Systems Review of Systems: ROS unobtainable: Yes unobtainable due to mental status Exam Narrative: Physical exam patient is alert. Appears comfortable at rest. Unable to give any useful history. HEENT exam reveals no icterus. Lungs are clear. Heart without murmur. Abdomen bowel sounds are present soft nontender no organomegaly evident. Rectal exam deferred at this time. Objective Data Vital Signs Vital Signs: Vital Signs - 24 hr 11/25/21 09:29 11/25/21 10:34 11/25/21 10:38 Temperature 97.1 F L Pulse Rate 61 67 72 Respiratory Rate 19 12 12 Blood Pressure 170/80 H Pulse Oximetry 91 05/10/22 14:02 11/25/21 14:09 11/25/21 15:59 Temperature Pulse Rate 89 91 81 Respiratory Rate 14 14 Blood Pressure Pulse Oximetry 11/25/21 20:29 11/25/21 20:31 11/25/21 20:39 Temperature Pulse Rate 66 70 Respiratory Rate 14 14 Blood Pressure Pulse Oximetry 87 L 11/25/21 21:00 11/25/21 21:17 11/25/21 22:00 Temperature 98.4 F Pulse Rate 66 66 79 Respiratory Rate 16 Blood Pressure 174/54 H Pulse Oximetry 94 94 11/26/21 01:16 11/26/21 01:18 11/26/21 01:26 Temperature Pulse Rate 72 75 Respiratory Rate 14 14 Blood Pressure Pulse Oximetry 94 11/26/21 05:25 11/26/21 06:00 Temperature 98.3 F Pulse Rate 76 74 Respiratory Rate 18 Blood Pressure 159/59 H Pulse Oximetry 96 Intake/Output Intake/Output: Intake & Output 11/23/21 11/24/21 11/25/21 11/26/21 23:59 23:59 23:59 23:59 Intake Total 2225 1500 1380 400 Balance 2225 1500 1380 400 Meds/Results Medications: Active Medications Generic Name Dose Route Start Last Admin Trade Name Chanelle PRN Reason Stop Dose Admin Acetaminophen 650 mg 11/19/21 09:18 11/25/21 18:19 Acetaminophen 325 Mg Tablet PO 650 mg Q4H PRN Administration Mild Pain (1-3) or Fever Albuterol 5 mg 11/19/21 14:00 11/26/21 01:13 Albuterol Sulfate Neb 2.5 Mg/0.5 Ml Inh INHALATION 5 mg Q6HRT MARY LOU Administration Amlodipine Besylate 10 mg 11/20/21 09:00 11/25/21 09:21 Amlodipine Besylate 5 Mg Tablet PO 10 mg DAILY MARY LOU Administration Atorvastatin Calcium
[2021-11-26] MEDS: CLOPIDOGREL BISULFATE 75 MG TABLET PO (08:23)
[2021-11-26] MEDS: DOCUSATE SODIUM 100 MG CAPSULE 200 MG BY MOUTH (08:24)
[2021-11-26] MEDS: hydrALAZINE HCL 50 MG TABLET 100 MG PO ×3 (08:24→16:31)
[2021-11-26] MEDS: PANTOPRAZOLE 40 MG TABLET PO (08:24)
[2021-11-26] MEDS: FERROUS SULFATE 324 MG TABLET PO ×2 (08:24→16:31)
[2021-11-26] MEDS: lisinopriL 20 MG TABLET 40 MG PO (08:24)
[2021-11-26] MEDS: SPIRONOLACTONE 25 MG TABLET PO (08:24)
[2021-11-26] MEDS: FUROSEMIDE INJ 40 MG/4 ML VIAL IV PUSH ×2 (08:25→16:31)
[2021-11-26] MEDS: amLODIPine BESYLATE 5 MG TABLET 10 MG PO (11:12)
[2021-11-26] MEDS: DOCUSATE SODIUM 100 MG CAPSULE BY MOUTH ×3 (11:15→22:00)
[2021-11-26 11:51] LABS: Glucose Point of Care 149 mg/dl (65-105)
--- NOTE | 2021-11-26 12:38 | PM.IMPN ---
Progress Note: A&P Assessment and Plan (1) Essential (primary) hypertension: Code(s): I10 - Essential (primary) hypertension Status: Acute Assessment and Plan: Chart review shows that her hypertension has been historically difficult to control. BP elevated to 234/68 on admission. BP better controlled with her medications but still not at goal. Continue home amlodipine 10mg daily, labetalol 100mg q.8hrs, lisinopril 40 mg daily. Spironolactone 25 mg daily was on hold but added back. Hydralazine was added back and advanced to 100mg TID. Will follow for now. (2) Closed fracture of distal end of left femur: Qualifiers: Encounter type: subsequent encounter Fracture healing: with nonunion Fracture morphology: unspecified fracture morphology Qualified Code(s): S72.402K - Unspecified fracture of lower end of left femur, subsequent encounter for closed fracture with nonunion Code(s): S72.402A - Unspecified fracture of lower end of left femur, initial encounter for closed fracture Status: Acute Assessment and Plan: XRay on admission showing fracture of lateral cortex of distal femoral metaphysis. Presumably secondary to aggressive lytic lesion noted on imaging. Dr. Scott consulted by ED physician and his input appreciated. Knee braced. MR knee was incomplete but does show no fracture. Fracture ruled out. Patient most likely will need to continue to be non-weight bearing given the bone lesion. Ortho following and appreciate their input. (3) Lytic bone lesion of femur: Code(s): M89.9 - Disorder of bone, unspecified Status: Acute Assessment and Plan: Aggressive lytic lesion noted in the distal femoral metaphysis suspicious for multiple myeloma or metastatic disease. Dr. Rollins consulted by ED physician and his input is appreciated. Skeletal survey showing only the single lesion. Evaluation for multiple myeloma in process but so far negative. MR brain okay. Ortho laid out plans for patient and to follow up at [facility]. has this information. Free kappa elevated and IgG low. SIF showing no abnormal bands Knee MRI ordered and was incomplete since patient could not tolerate; there was no fracture but a 3.4 cm mass in distal femoral metaphysis either benign or malignant, meniscus tears and a large knee joint effusion. Bone biopsy ordered and performed 11/25. Oncology following and appreciate their input. Pathology pending. (4) Elevated troponin: Code(s): R77.8 - Other specified abnormalities of plasma proteins Status: Acute Assessment and Plan: She denies chest pain and has vague complaints of generally feeling unwell. She was hypoxic on admission. EKG reviewed showing sinus rhythm with RAD, Rt BBB and possible old high lateral SD. Troponin was 0.59 and trending down. CXR showing mid and lower lung opacities and bilateral effusions. Echo completed showing EF 65-70%, severe LVH, diastolic dysfunction, moderate MS and severe pulmonary HTN. SBP was as high as 234. Suspect elevated Troponin related to severe HTN. Will follow for now. Continue as above. (5) Acute kidney injury: Code(s): N17.9 - Acute kidney failure, unspecified Status: Acute Assessment and Plan: Cr 1.4 on admission. Normal creatinine at baseline. Patient has had poor oral intake the last several days thus may be in part due to dehydration. She received 2500 mL normal saline in ER but fluids not continued. CT scan showing a 7.2 x 5.7 cm left renal mass without significant change since 01/27/20 at which time the mass measured 6.7 x 5.6 cm. The mass contains small calcifications and small amount of macroscopic fat consistent with myelolipoma. A couple nonobstructing right renal stones the largest measuring 3 mm at a lower pole calyx. There is mild scattered cortical atrophy of both kidneys. Couple small left renal cysts. Renal ultrasound showing normal parenchymal echogenicity and no son
--- NOTE | 2021-11-26 13:19 | PCOTNOTE ---
Patient with PT this AM. In PM, attempted to see patient, patient sleeping soundly. Patient's and therapist discussed having patient participate with OT tomorrow morning prior to d/c as patient just went back to bed after lunch and wanted to rest. Patient not seen for OT 11/26/21.
[2021-11-26 13:29] LABS: Lactate Dehydrogenase 543 U/L (313-618)
[2021-11-26 13:31] LABS: Bilirubin,Total 0.2 mg/dL (0.2-1.3); Cholesterol 110 mg/dL (0-200); Glucose 122 mg/dL (65-110)
[2021-11-26] MEDS: oxyCODONE/ACETAMINOPHEN (*CRX) 5-325 MG TABLET 1 TABLET PO (15:09)
[2021-11-26] MEDS: oxyCODONE HCL (*CRX) 5 MG TAB IR PO (15:10)
[2021-11-26 16:20] LABS: Glucose Point of Care 165 mg/dl (65-105)
[2021-11-26] MEDS: QUEtiapine FUMARATE 25 MG TABLET PO (21:58)
[2021-11-26] MEDS: ATORVASTATIN 40 MG TABLET 80 MG PO (21:58)
[2021-11-26] MEDS: LORazepam (*CRX) 0.5 MG TABLET PO (21:58)
[2021-11-26] MEDS: EZETIMIBE 10 MG TABLET BY MOUTH (21:59)
[2021-11-26] MEDS: MELATONIN 5 MG TABLET 20 MG PO (21:59)
[2021-11-26 22:05] LABS: Glucose Point of Care 159 mg/dl (65-105)
[2021-11-27] MEDS: oxyCODONE/ACETAMINOPHEN (*CRX) 5-325 MG TABLET 1 TABLET PO ×3 (03:44→16:48)
[2021-11-27] MEDS: oxyCODONE HCL (*CRX) 5 MG TAB IR PO ×3 (03:44→16:49)
[2021-11-27 04:11] VITALS: BP 163/88; PULSE 87; RESP 20; TEMP 36.6; O2SAT 97
[2021-11-27 05:57] LABS: Hematocrit 31.1 % (37.0-47.0); Hemoglobin 9.1 g/dL (12.0-15.0); Mean Corpuscular HGB Conc 29.3 g/dl (32-36); Mean Corpuscular Hemoglobin 25.2 pg (26-34); Mean Corpuscular Volume 86.1 fl (80-100); Mean Platelet Volume 9.8 fl (7.4-10.4); Platelet Count Result 222 k/mm3 (150-375); Red Blood Count 3.61 M/mm3 (4.2-5.4); Red Cell Distribution Width 15.3 % (11.5-14.5); White Blood Count 5.5 K/mm3 (4.5-10.0)
[2021-11-27 06:19] LABS: Alanine Aminotransferase 13 U/L (6-35); Albumin Level 2.7 g/dL (3.5-5.1); Alkaline Phosphatase 103 U/L (38-126); Aspartate Amino Transferase 25 U/L (14-36); Bilirubin,Total 0.2 mg/dL (0.2-1.3); Blood Urea Nitrogen 19 mg/dL (7-17); Calcium 7.6 mg/dL (8.4-10.2); Carbon Dioxide > 40 mmol/L (22-30); Chloride 94 mmol/L (98-107); Estimated CRCL calculation 40 ml/min; Estimated Glomerular Filt Rate 54; Glucose 139 mg/dL (65-110); Potassium 3.6 mmol/L (3.4-5.0); Sodium 138 mmol/L (137-145)
[2021-11-27 06:35] VITALS: PULSE 60
[2021-11-27] MEDS: LABETALOL HCL 100 MG TABLET PO ×2 (06:35→14:10)
[2021-11-27] MEDS: GABAPENTIN 300 MG CAPSULE 600 MG PO ×2 (06:35→13:06)
[2021-11-27 07:35] LABS: Glucose Point of Care 110 mg/dl (65-105)
[2021-11-27 07:43] LABS: Glucose Point of Care 115 mg/dl (65-105)
--- NOTE | 2021-11-27 08:25 | PCOTNOTE ---
Attempted Occupational Therapy treatment, patient reports I am going to nap right now, I will do therapy later . Will follow.
[2021-11-27 08:45] VITALS: O2SAT 96
[2021-11-27] MEDS: PANTOPRAZOLE 40 MG TABLET PO (08:45)
[2021-11-27] MEDS: SPIRONOLACTONE 25 MG TABLET PO (08:45)
[2021-11-27] MEDS: hydrALAZINE HCL 50 MG TABLET 100 MG PO ×3 (08:45→16:47)
[2021-11-27] MEDS: FERROUS SULFATE 324 MG TABLET PO ×2 (08:46→16:50)
[2021-11-27] MEDS: FUROSEMIDE INJ 40 MG/4 ML VIAL IV PUSH (08:46)
[2021-11-27] MEDS: lisinopriL 20 MG TABLET 40 MG PO (08:47)
[2021-11-27] MEDS: DOCUSATE SODIUM 100 MG CAPSULE 200 MG BY MOUTH (08:50)
[2021-11-27 11:27] LABS: Glucose Point of Care 175 mg/dl (65-105)
[2021-11-27 12:04] VITALS: BP 163/58; PULSE 74; RESP 18; TEMP 37.1; O2SAT 98
[2021-11-27] MEDS: DOCUSATE SODIUM 100 MG CAPSULE BY MOUTH ×2 (12:11→16:50)
--- NOTE | 2021-11-27 12:38 | WPDGIPROGNO ---
Progress Note: A&P Assessment and Plan (1) Occult blood in stools: Code(s): R19.5 - Other fecal abnormalities Status: Acute Assessment and Plan: Occult blood in stool noted. No obvious bleeding described. GI evaluation to be consider later date when pneumonia and other medical problems have stabilized. (2) Iron deficiency anemia: Code(s): D50.9 - Iron deficiency anemia, unspecified Status: Acute Assessment and Plan: Patient has chronic anemia now with iron deficient indices. GI workup on hold given her other active medical problems. (3) Lytic bone lesion of femur: Code(s): M89.9 - Disorder of bone, unspecified Status: Acute (4) Pneumonia: Qualifiers: Laterality: unspecified laterality Lung location: lower lobe of lung Pneumonia type: due to unspecified organism Qualified Code(s): J18.9 - Pneumonia, unspecified organism Code(s): J18.9 - Pneumonia, unspecified organism Status: Acute Assessment and Plan: Patient being treated for pneumonia. Remains hypoxic. This should be treated prior to GI endoscopy. (5) Pleural effusion: Code(s): J90 - Pleural effusion, not elsewhere classified Status: Acute Subjective Date/time seen: 11/27/21 12:38 Patient remains lethargic and remains a poor historian. No bloody stools reported. Denies abdominal pain. Review of Systems Review of Systems: All systems reviewed & are unremarkable except as noted in HPI and below Exam Narrative: Patient alert comfortable rest. Unable to add any useful history. Lungs are clear. Heart without murmur. Abdomen bowel sounds present soft nontender with no organomegaly. Extremities with left knee in a brace. Objective Data Vital Signs Vital Signs: Vital Signs - 24 hr 11/26/21 13:00 11/26/21 14:08 11/26/21 14:10 Temperature 99.1 F Pulse Rate 71 78 Respiratory Rate 18 Blood Pressure 194/62 H Pulse Oximetry 98 11/26/21 15:11 11/26/21 17:00 11/26/21 19:23 Temperature Pulse Rate Respiratory Rate Blood Pressure 159/37 H Pulse Oximetry 66 L 95 11/26/21 19:34 11/26/21 19:52 11/26/21 21:58 Temperature 97.6 F Pulse Rate 60 60 Respiratory Rate 17 Blood Pressure 160/80 H Pulse Oximetry 93 97 11/26/21 23:37 11/27/21 04:11 11/27/21 06:35 Temperature 98.8 F 97.8 F Pulse Rate 59 L 87 60 Respiratory Rate 16 20 Blood Pressure 164/40 H 163/88 H Pulse Oximetry 91 97 11/27/21 08:45 11/27/21 12:04 Temperature 98.7 F Pulse Rate 74 Respiratory Rate 18 Blood Pressure 163/58 H Pulse Oximetry 96 98 Intake/Output Intake/Output: Intake & Output 11/24/21 11/25/21 11/26/21 11/27/21 23:59 23:59 23:59 23:59 Intake Total 1500 1380 1120 100 Balance 1500 1380 1120 100 Meds/Results Medications: Active Medications Generic Name Dose Route Start Last Admin Trade Name Freq PRN Reason Stop Dose Admin Acetaminophen 650 mg 11/19/21 09:18 11/25/21 18:19 Acetaminophen 325 Mg Tablet PO 650 mg Q4H PRN Administration Mild Pain (1-3) or Fever Albuterol 2.5 mg 11/26/21 08:25 Albuterol Sulfate Neb 2.5 Mg/3 Ml Inh INHALATION Q6HRT PRN Shortness Of Breath Amlodipine Besylate 10 mg 11/26/21 12:00 11/26/21 11:12 Amlodipine Besylate 5 Mg Tablet PO 10 mg 1200 MARY LOU Administration Atorvastatin Calcium 80 mg 11/19/21 21:00 11/26/21 21:58 Atorvastatin 40 Mg Tablet PO 80 mg HS MARY LOU Administration Carbamazepine 100 mg 11/19/21 17:00 11/27/21 12:07 Carbamazepine Chew 100 Mg Chew PO 100 mg TIDWM MARY LOU Administration Clopidogrel Bisulfate 75 mg 11/20/21 09:00 11/26/21 08:23 Clopidogrel Bisulfate 75 Mg Tablet PO 75 mg DAILY MARY LOU Administration Dextrose 12.5 gm 11/19/21 15:04 Dextrose 50% 25 Gm/50 Ml Syringe IV PUSH PRN PRN Hypoglycemia Protocol Docusate Sodium 100 mg 11/19/21 17:00 11/27/21 12:11 Docusate Sodium 10
[2021-11-27] MEDS: amLODIPine BESYLATE 5 MG TABLET 10 MG PO (12:42)
--- NOTE | 2021-11-27 13:20 | PM.DS ---
DS: Admitting Diagnosis Discharge Date 11/27/21 Admitting Diagnosis Generalized malaise DS: Discharge Diagnosis Discharge Diagnosis (1) Essential (primary) hypertension: Code(s): I10 - Essential (primary) hypertension Status: Acute Assessment and Plan: Chart review shows that her hypertension has been historically difficult to control. BP elevated to 234/68 on admission. We continued home amlodipine 10mg daily, labetalol 100mg q.8hrs, lisinopril 40 mg daily. Spironolactone 25 mg daily was on hold but added back. BP better controlled with her medications but still not at goal so Hydralazine was advanced to 100mg TID. SBP 150-160 now but DBP as low as 37 but mostly 50-80. Continue current regiment (2) Closed fracture of distal end of left femur: Qualifiers: Encounter type: subsequent encounter Fracture healing: with nonunion Fracture morphology: unspecified fracture morphology Qualified Code(s): S72.402K - Unspecified fracture of lower end of left femur, subsequent encounter for closed fracture with nonunion Code(s): S72.402A - Unspecified fracture of lower end of left femur, initial encounter for closed fracture Status: Acute Assessment and Plan: XRay on admission showing fracture of lateral cortex of distal femoral metaphysis. Presumably secondary to aggressive lytic lesion noted on imaging. Ortho consulted. Knee was braced. MR knee was incomplete because patient had trouble tolerating the procedure but does show no fracture. Fracture ruled out. Patient will need to continue to be non-weight bearing given the bone lesion. (3) Lytic bone lesion of femur: Code(s): M89.9 - Disorder of bone, unspecified Status: Acute Assessment and Plan: Aggressive lytic lesion noted in the distal femoral metaphysis suspicious for multiple myeloma or metastatic disease. Oncology consulted. Skeletal survey showing only the single lesion. Evaluation for multiple myeloma in process but so far negative. MR brain showing no acute process. Ortho laid out plans for patient and to follow up at [facility]. has this information. Free kappa elevated and IgG low. SIF showing no abnormal bands. Knee MRI ordered and was incomplete since patient could not tolerate; there was no fracture but a 3.4 cm mass in distal femoral metaphysis either benign or malignant, meniscus tears and a large knee joint effusion. Bone biopsy ordered and performed 11/25. Oncology following and appreciate their input. Preliminary pathology showing no evidence of plasma cell dyscrasia; no clonal B-cell population or increase in blasts. (4) Elevated troponin: Code(s): R77.8 - Other specified abnormalities of plasma proteins Status: Acute Assessment and Plan: She denies chest pain and has vague complaints of generally feeling unwell. She was hypoxic on admission. EKG reviewed showing sinus rhythm with RAD, Rt BBB and possible old high lateral DC. Troponin was 0.59 and trending down. CXR showing mid and lower lung opacities and bilateral effusions. Echo showing EF 65-70%, severe LVH, diastolic dysfunction, moderate MS and severe pulmonary HTN. SBP was as high as 234. Suspect elevated Troponin related to severe HTN. (5) Acute kidney injury: Code(s): N17.9 - Acute kidney failure, unspecified Status: Acute Assessment and Plan: Cr 1.4 on admission. Normal creatinine at baseline. Patient has had poor oral intake the last several days thus may be in part due to dehydration. She received 2500 mL normal saline in ER but fluids not continued. CT scan showing a 7.2 x 5.7 cm left renal mass without significant change since 01/27/20 at which time the mass measured 6.7 x 5.6 cm. The mass contains small calcifications and small amount of macroscopic fat consistent with myelolipoma. A couple nonobstructing right renal stones the largest measuring 3 mm at a lower pole calyx. There is mild scattere
[2021-11-27 14:10] VITALS: PULSE 64
[2021-11-27 14:34] LABS: EDCOVIDSCREEN Negative (Negative)
[2021-11-27] MEDS: CLOPIDOGREL BISULFATE 75 MG TABLET PO (14:37)
[2021-11-27 15:39] VITALS: O2SAT 95
[2021-11-28 03:30] LABS: Immunoglobulin G, Serum 642 mg/dL (600-1540); Immunoglobulin G1 372 mg/dL (382-929); Immunoglobulin G2 164 mg/dL (241-700); Immunoglobulin G3 51 mg/dL (22-178); Immunoglobulin G4 9.4 mg/dL (4.0-86.0)
== END 2021-11-27 16:57 | DRG 564 ==
LOC: ANHED 10:38 → ANHIMU 12:52 → ANH2MED 11-22 19:55 → ANHIMU 11-28 09:26
PROVIDERS: Physician Assistant; Radiology Diagnostic Radiology; Student in an Organized Health Care Education/Training Program; Admitting Provider Hospitalist; Emergency Provider Emergency Medicine; PCP Nurse Practitioner; Referring Provider Internal Medicine Hematology & Oncology; Visit Provider Internal Medicine
DX: M89.9 Disorder of bone, unspecified (principal); J18.9 Pneumonia, unspecified organism; J96.01 Acute respiratory failure with hypoxia; N17.9 Acute kidney failure, unspecified; J90 Pleural effusion, not elsewhere classified; Z20.822 Contact with and (suspected) exposure to COVID-19; I25.10 Atherosclerotic heart disease of native coronary artery without angina pectoris; E11.42 Type 2 diabetes mellitus with diabetic polyneuropathy; M19.90 Unspecified osteoarthritis, unspecified site; M47.896 Other spondylosis, lumbar region; I10 Essential (primary) hypertension; E78.5 Hyperlipidemia, unspecified; D50.9 Iron deficiency anemia, unspecified; D63.1 Anemia in chronic kidney disease; F41.9 Anxiety disorder, unspecified; R91.1 Solitary pulmonary nodule; R19.5 Other fecal abnormalities; N28.89 Other specified disorders of kidney and ureter; R93.2 Abnormal findings on diagnostic imaging of liver and biliary tract; R77.8 Other specified abnormalities of plasma proteins; F32.A Depression, unspecified; I27.20 Pulmonary hypertension, unspecified; E86.0 Dehydration; Z96.642 Presence of left artificial hip joint; Z87.891 Personal history of nicotine dependence; Z85.828 Personal history of other malignant neoplasm of skin; Z95.5 Presence of coronary angioplasty implant and graft
CPT/HCPCS: 36415; 36600; 38222; 70553; 71045; 71250; 73562; 73721; 74176; 76775; 77075; 80048; 80053; 80069; 80076; 80156; 81001; 82040; 82247; 82274; 82465; 82550; 82607; 82728; 82746; 82784; 82787; 82805; 82947; 82948; 83036; 83540; 83550; 83605; 83615; 83735; 83880; 83883; 84145; 84155; 84443; 84466; 84484; 85025; 85027; 85046; 85610; 85730; 86140; 86334; 87040; 87426; 87449; 87502; 87899; 88184; 88185; 88305; 88311; 88313; 92610; 93005; 93306; 93971; 94640; 94762; 97110; 97162; 97166; 97530; 97535; 99285; A9270; A9577; C9803; J0456; J0696; J1642; J1756; J1815; J1940; J2270; J2405; J3010; J7030; J7050; L1830; U0003; U0005

== ENCOUNTER 2022-09-18 14:11 | Outpatient (CLI) | payer MEDICARE, SELFPAY ==
[2022-09-18 19:29] LABS: Hemoglobin A1C 7.6 % (<5.7)
== END 2022-09-18 14:12 | disposition home or self-care (01) ==
LOC: ANHGOSHLAB 14:13
PROVIDERS: PCP Family Medicine; Visit Provider Nurse Practitioner
DX: E11.9 Type 2 diabetes mellitus without complications (principal)
CPT/HCPCS: 36415; 83036